=== PATIENT | male | born 1985 | race Caucasian/White ===

== ENCOUNTER → 2017-02-07 | Outpatient (CLI) | payer OTHER ==
[2017-02-07 09:17] LABS: Basophils % (A) 0 %; CH 30.7; CHCM 33.6; Eosinophils # (A) 0.2 k/uL (0-0.7); Eosinophils % (A) 2 %; HCT 50.3 % (39.0-53.0); HDW 2.69; HGB 16.9 gm/dL (13.0-17.5); Luc # (Auto) 0.24; Luc % (Auto) 3; Lymphocytes # (A) 2.4 k/uL (1.0-4.8); Lymphocytes % (A) 26 %; MCH 30.9 pg (25.0-35.0); MCHC 33.6 g/dL (31.0-37.0); MCV 91.7 fL (80.0-100.0); Mean Platelet Volume 7.2; Monocytes # (A) 0.6 k/uL (0-1.0); Monocytes % (A) 6 %; Neutrophils # (A) 5.8 k/uL (1.3-7.7); Neutrophils % (A) 63 %; RBC 5.48 m/uL (4.30-5.90); RDW 13.3 % (11.5-15.5); WBC 9.2 k/uL (3.8-10.6); WBC (Perox) 9.52
[2017-02-07 09:32] LABS: ALT 60 U/L (21-72); AST 29 U/L (17-59); Alkaline Phosphatase 99 U/L (38-126); Anion Gap 9 mmol/L; Blood Urea Nitrogen 13 mg/dL (9-20); Calcium 9.7 mg/dL (8.4-10.2); Carbon Dioxide 26 mmol/L (22-30); Chloride 108 mmol/L (98-107); Cholesterol 216 mg/dL (<200); Glucose 98 mg/dL (74-99); HDL Cholesterol 34 mg/dL (40-60); Non-African American GFR(MDRD) >60 (>60 ml/min/1.73 sqM); Potassium 4.7 mmol/L (3.5-5.1); Sodium 143 mmol/L (137-145); Total Bilirubin 0.7 mg/dL (0.2-1.3); Total Protein 7.5 g/dL (6.3-8.2); Triglycerides 196 mg/dL (<150)
== END | disposition home or self-care (01) ==
LOC: LABWHC1 08:45
PROVIDERS: ATTEND Family Medicine
DX: I10 Essential (primary) hypertension (principal)
CPT/HCPCS: 36415; 80053; 80061; 84443; 85025

== ENCOUNTER → 2017-04-03 | Outpatient (CLI) | payer OTHER ==
--- NOTE | 2017-04-10 20:15 | CONS ---
DATE OF SERVICE: 04/03/2017 This patient is a 32-year-old gentleman who has been evaluated in the sleep center for possible obstructive sleep apnea/hypopnea syndrome. HISTORY OF PRESENT ILLNESS/SLEEP-WAKE EVALUATION: Patient's usual sleep schedule on working days is from 10 p.m. until 3:30 a.m., on weekends from 10 p.m. to 7 or 7:30 a.m. No problem with falling asleep. He has a TV set in the bedroom. He usually sleeps on his side or back. He has snoring and witnessed episodes by his of stopped breathing during sleep. He wakes up from sleep up to 2 times with one episode of nocturia. In the morning he wakes up tired. [place] Sleepiness Scale is 9. Past medical history is positive for hypertension. PAST SURGICAL HISTORY: 1. Bilateral knee reconstruction for ALL. 2. Status post nasal surgery in 1998. 3. Status post nasal fracture. MEDICATIONS: Lotrel. REVIEW OF SYSTEMS: No fevers. No double vision. No recent chest pain. No shortness of breath. No abdominal pain. No bleeding episodes. No blood in urine. No seizure episodes. Tiredness and sleepiness during the day. Snoring. FAMILY HISTORY: Hypertension, sleep apnea, snoring, restless legs, diabetes. SOCIAL HISTORY: Positive for smoking one pack a day for 5 years. Alcohol consumption occasional. PHYSICAL EXAM: The patient is in no distress. He is a pleasant 32-year-old gentleman. VITAL SIGNS: Blood pressure 159/98, heart rate 96, respiratory rate 16, height 69, weight 250.2, BMI 47.3. Neck 18 inches in circumference. Temperature 98.1. Oxygen saturation on room air 96%. HEENT: PERRLA. EOMI. Evaluation of oropharynx showed tongue protrudes midline. Extremely low position of soft palate. Restriction of nasal breathing. NECK: Supple. No JVD. Thyroid is not palpable. LUNGS: Clear to percussion and to auscultation. Good air exchange. No wheezing or rhonchi. HEART: S1, S2 regular. No murmurs, gallops or rubs. ABDOMEN: Obese. EXTREMITIES: No clubbing or cyanosis. CONTROL ROOM OPERATOR: Awake, alert and oriented x3. Cranial nerves 2 through 7 are intact. There is no fasciculation or atrophy noted. No focal deficits observed. IMPRESSION: 1. Snoring, witnessed episodes of stopped breathing during sleep, extremely low position of soft palate, morbid obesity; obstructive sleep apnea/hypopnea syndrome. 2. Hypertension. 3. Obesity. BMI 47.3. 4. Status post bilateral knee reconstruction for ALL. 5. Status post nasal surgery in 1998. 6. Status post nasal fracture. 7. Restriction of nasal breathing. PLAN: 1. Polysomnography for evaluation of patients breathing during sleep. 2. CPAP/BiPAP titration if sleep study confirms obstructive sleep apnea/ hypopnea syndrome. 3. Preferable position during sleep on the side. 4. No driving if feeling any sleepiness. Patient is aware of civil and criminal liability for unsafe driving. 5. I will see this patient for follow-up visit to explain results of the testing and follow-up plan. Thank you very much for referring this patient for consultation. Sincerely, Wilbert Johnson. , PhD, FAASM. Diplomat of [place] [employer], Sleep Medicine Board by [place] [employer] [place] [employer] Research Consultant of [facility] [place] [facility]
== END | disposition home or self-care (01) ==
LOC: SLEEP 16:11
PROVIDERS: ATTEND Internal Medicine
DX: G47.33 Obstructive sleep apnea (adult) (pediatric) (principal); I10 Essential (primary) hypertension; E66.9 Obesity, unspecified; Z68.42 Body mass index [BMI] 45.0-49.9, adult; Z98.890 Other specified postprocedural states
CPT/HCPCS: 99211

== ENCOUNTER → 2018-09-11 | Outpatient (CLI) | payer OTHER ==
--- NOTE | 2018-09-11 11:19 | XR ---
EXAMINATION TYPE: XR knee complete bilateral DATE OF EXAM: 09/11/2018 CLINICAL HISTORY: Chronic bilateral knee pain TECHNIQUE: Three views of the bilateral knees were obtained. COMPARISON: None. FINDINGS: There is no acute fracture/dislocation evident in either knee. There is evidence of prior anterior cruciate ligament repair bilateral knees. Mild to moderate tricom partmental arthropathy is seen as small marginal osteophytes and both the left and right knees. No ch ondrocalcinosis is seen. There is a right medial proximal tibial metaphyseal osteochondroma contiguou s with the cortical surface this measures approximately 0.8 x 1.8 cm. Soft tissues are unremarkable. Small fabellae noted on the right. IMPRESSION: 1. There is no acute fracture or dislocation in either knee. 2. Medial right proximal tibial metaphyseal osteochondroma. MRI is recommended to evaluate the thickn ess of the cartilaginous cap and evaluation for osteosarcoma. 3. Mild to moderate tricompartmental arthropathy bilaterally.
== END | disposition home or self-care (01) ==
LOC: RADXRMAIN 08:32
PROVIDERS: ATTEND Family Medicine
DX: M17.0 Bilateral primary osteoarthritis of knee (principal); D16.21 Benign neoplasm of long bones of right lower limb

== ENCOUNTER → 2018-10-02 | Outpatient (CLI) | payer OTHER ==
--- NOTE | 2018-10-07 23:48 | MR ---
EXAMINATION TYPE: MR knee RT wo/w con DATE OF EXAM: 10/07/2018 COMPARISON: None HISTORY: Benign neoplasm of bone and articular cartilage TECHNIQUE: Multiplanar, multisequence images of the right knee is performed with 10 mL intravenous Ga davist gadolinium contrast. FINDINGS: There is no recognizable anterior cruciate ligament. The posterior cruciate ligament appears intact. There is metal artifact from previous reconstructive surgery in the distal femur and proximal tibia. There is mild to moderate knee joint effusion. There is patchy increased signal through a large area of the posterior horn of the lateral meniscus. There is horizontal increased signal anterior horn of the lateral meniscus. There is mild degenerative thinning of the medial meniscus without a complete tear. There is 2 cm are a of patchy increased signal at the base of the tibial spines consistent with bone bruise. There is 8 mm focus of decreased signal in the subchondral lateral femoral condyle consistent with degenerative early cyst formation. There is hypertrophic spurring of the medial and lateral femoral and tibial co ndyles. The collateral ligaments appear intact. The patella appears intact. The contrast images show no pathologic enhancement. There is mild subcutaneous edema anterior to the patella tendon. IMPRESSION: Complete tear anterior cruciate ligament. Complex tears of the anterior and posterior horn of the lat eral meniscus. Hypertrophic osteoarthritis. There is more severe lateral joint space narrowing. Large area of bone bruise at the base of the tibial spines. No fracture line seen. Moderate joint effusion. Mild degenerative thinning of the medial meniscus without a definite complet e tear.
== END | disposition home or self-care (01) ==
LOC: RADMRIMAIN 11:39
PROVIDERS: ATTEND Family Medicine
DX: S83.511A Sprain of anterior cruciate ligament of right knee, initial encounter (principal); S83.281A Other tear of lateral meniscus, current injury, right knee, initial encounter; M17.11 Unilateral primary osteoarthritis, right knee
CPT/HCPCS: 73723; A9585

== ENCOUNTER → 2018-10-09 | Outpatient (CLI) | payer OTHER ==
--- NOTE | 2018-10-09 15:20 | US ---
EXAMINATION TYPE: US venous doppler duplex LE LT DATE OF EXAM: 10/09/2018 11:54 AM COMPARISON: NONE CLINICAL HISTORY: M25.562 PAIN IN LT KNEE,M17.12 OSTEOARTHRITIS. SIDE PERFORMED: Left TECHNIQUE: The lower extremity deep venous system is examined utilizing real time linear array sonog angie with graded compression, doppler sonography and color-flow sonography. VESSELS IMAGED: External Iliac Vein (EIV) Common Femoral Vein Deep Femoral Vein Greater Saphenous Vein * Femoral Vein Popliteal Vein Small Saphenous Vein * Proximal Calf Veins (* superficial vessels) Left Leg: Negative for DVT GSV and PTV's also scanned per order. Also negative. Office notified immediately following. IMPRESSION: No evidence for DVT at this time.
== END ==
LOC: RADUSWWP 11:35
PROVIDERS: ATTEND Orthopaedic Surgery
DX: M79.662 Pain in left lower leg (principal)

== ENCOUNTER 2019-01-24 06:29 | Emergency (ER) | payer OTHER ==
[2019-01-24] MEDS ORDERED: KETOROLAC 30 MG/ML 1 ML VIAL IVP STA (06:48)
[2019-01-24] MEDS ORDERED: SODIUM CHLORIDE 0.9% 1,000 ML IV STA (06:48)
[2019-01-24] MEDS ORDERED: TAMSULOSIN 0.4 MG CAP.ER.24H PO STA (06:51)
--- NOTE | 2019-01-24 06:53 | ED ---
Abdominal Pain HPI - General Chief Complaint: Abdominal Pain Stated Complaint: Abdominal Pain Time Seen by Provider: 01/24/19 06:44 Source: patient, RN notes reviewed Mode of arrival: ambulatory Limitations: no limitations - History of Present Illness Initial Comments: This is a 33-year-old male with a prior history kidney stones who states he had the onset this morning of severe left-sided sharp flank pain it radiates down toward his groin. He denies any nausea vomiting dysuria hematuria he states he feels very similar to his previous kidney stones which she's had 2 episodes in the past. Denies any other complaints or modifying factors. MD Complaint: flank pain - Related Data Home Medications Medication Instructions Recorded Confirmed Armodafinil [Nuvigil] 50 mg PO QAM 01/24/19 01/24/19 amLODIPine BESYLATE/BENAZEPRIL 1 cap PO DAILY 01/24/19 01/24/19 [Lotrel 10-20 MG] Previous Rx's Medication Instructions Recorded Ketorolac [Toradol] 10 mg PO Q6HR #20 tab 01/24/19 Tamsulosin [Flomax] 0.4 mg PO DAILY #7 cap 01/24/19 Allergies Allergy/AdvReac Type Severity Reaction Status Date / Time No Known Allergies Allergy Verified 01/24/19 06:34 Review of Systems ROS Statement: Those systems with pertinent positive or pertinent negative responses have been documented in the HPI. ROS Other: All systems not noted in ROS Statement are negative. Past Medical History Past Medical History: Hypertension Additional Past Medical History / Comment(s): kidney stones History of Any Multi-Drug Resistant Organisms: None Reported Past Surgical History: Orthopedic Surgery Past Psychological History: No Psychological Hx Reported Smoking Status: Current every day smoker Past Alcohol Use History: Occasional Past Drug Use History: None Reported General Exam - General Exam Comments Initial Comments: This is a well-developed well-nourished awake alert oriented 3 male Limitations: no limitations General appearance: alert, anxious, in distress Head exam: Present: atraumatic, normocephalic, normal inspection Eye exam: Present: normal appearance, PERRL, EOMI. Absent: scleral icterus, conjunctival injection, periorbital swelling ENT exam: Present: normal exam, mucous membranes moist Neck exam: Present: normal inspection. Absent: tenderness, meningismus, lymphadenopathy Respiratory exam: Present: normal lung sounds bilaterally. Absent: respiratory distress, wheezes, rales, rhonchi, stridor Cardiovascular Exam: Present: regular rate, normal rhythm, normal heart sounds. Absent: systolic murmur, diastolic murmur, rubs, gallop, clicks GI/Abdominal exam: Present: soft, tenderness (Mild left flank and left upper quadrant tenderness palpation no guarding rebound masses or bruits), normal bowel sounds. Absent: distended, guarding, rebound, rigid Rectal exam: Present: deferred Extremities exam: Present: normal inspection, full ROM, normal capillary refill. Absent: tenderness, pedal edema, joint swelling, calf tenderness Back exam: Present: normal inspection, full ROM. Absent: tenderness, CVA tenderness (R), CVA tenderness (L) Neurological exam: Present: alert, oriented X3, CN II-XII intact Psychiatric exam: Present: normal affect, normal mood Skin exam: Present: warm, dry, intact, normal color. Absent: rash Course Vital Signs 01/24/19 06:30 Temperature 98.0 F Pulse Rate 94 Respiratory 20 Rate Blood Pressure 161/121 O2 Sat by Pulse 99 Oximetry Medical Decision Making - Medical Decision Making Reevaluation patient finds he is pain-free at this time he does desire to go home he'll be placed on Flomax and nonsteroidals he states this is very similar to his previous experiences as he has passed small kidney stones in the past. UA is pending at this time he does not want to wait for the results. - Lab Data Result diagrams: 01/24/19 06:44 01/24/19 06:44 Lab Results 01/24/19 01/24/19 Range/Units 06:44 06:44 WBC 12.6 H (3.8-10.6) k/uL RBC 5.02 (4.30-5.90) m/uL Hgb 15.4 (13.0-17.5) gm/dL Hct 45.2 (39.0-53.0) % MCV 90.1 (80.0-100.0) fL MCH 30.6 (25.0-35.0) pg MCHC 34.0 (31.0-37.0) g/dL RDW 13.1 (11.5-15.5) % Plt Count 243 (150-450) k/uL Neutrophils % 53 % Lymphocytes % 36 % Monocytes % 5 % Eosinophils % 4 % Basophils % 0 % Neutrophils # 6.6 (1.3-7.7) k/uL Lymphocytes # 4.6 (1.0-4.8) k/uL Monocytes # 0.6 (0-1.0) k/uL Eosinophils # 0.4 (0-0.7) k/uL Basophils # 0.1 (0-0.2) k/uL Sodium 140 (137-145) mmol/L Potassium 4.2 (3.5-5.1) mmol/L Chloride 106 (98-107) mmol/L Carbon Dioxide 26 (22-30) mmol/L Anion Gap 8 mmol/L BUN 17 (9-20) mg/dL Creatinine 0.97 (0.66-1.25) mg/dL Est GFR (CKD-EPI)AfAm >90 (>60 ml/min/1.73 sqM) Est GFR (CKD-EPI)NonAf >90 (>60 ml/min/1.73 sqM) Glucose 95 (74-99) mg/dL Calcium 9.7 (8.4-10.2) mg/dL Total Bilirubin 0.4 (0.2-1.3) mg/dL AST 22 (17-59) U/L ALT 46 (21-72) U/L Alkaline Phosphatase 104 (38-126) U/L Total Protein 7.1 (6.3-8.2) g/dL Albumin 4.4 (3.5-5.0) g/dL Amylase 33 (30-110) U/L Lipase 127 (23-300) U/L - Radiology Data Radiology results: report reviewed (I did review the imaging and report no acute findings.), image reviewed Disposition Clinical Impression: Renal colic on left side, Kidney stone on left side Disposition: HOME SELF-CARE Condition: Good Instructions (If sedation given, give patient instructions): Renal Colic (ED), Flank Pain (ED), Kidney Stones (ED) Prescriptions: Tamsulosin [Flomax] 0.4 mg PO DAILY #7 cap Ketorolac [Toradol] 10 mg PO Q6HR #20 tab Is patient prescribed a controlled substance at d/c from ED?: No Referrals: Erica Nazario MD [Primary Care Provider] - 1-2 days
[2019-01-24 06:59] LABS: Basophils # (A) 0.1 k/uL (0-0.2); Basophils % (A) 0 %; Eosinophils # (A) 0.4 k/uL (0-0.7); Eosinophils % (A) 4 %; HCT 45.2 % (39.0-53.0); HGB 15.4 gm/dL (13.0-17.5); Lymphocytes # (A) 4.6 k/uL (1.0-4.8); Lymphocytes % (A) 36 %; MCH 30.6 pg (25.0-35.0); MCV 90.1 fL (80.0-100.0); Mean Platelet Volume 7.3; Monocytes # (A) 0.6 k/uL (0-1.0); Monocytes % (A) 5 %; Neutrophils # (A) 6.6 k/uL (1.3-7.7); Neutrophils % (A) 53 %; Platelet Count 243 k/uL (150-450); RBC 5.02 m/uL (4.30-5.90); RDW 13.1 % (11.5-15.5); WBC 12.6 k/uL (3.8-10.6)
[2019-01-24 07:08] LABS: ALT 46 U/L (21-72); AST 22 U/L (17-59); Albumin 4.4 g/dL (3.5-5.0); Alkaline Phosphatase 104 U/L (38-126); Amylase 33 U/L (30-110); Anion Gap 8 mmol/L; Blood Urea Nitrogen 17 mg/dL (9-20); Calcium 9.7 mg/dL (8.4-10.2); Carbon Dioxide 26 mmol/L (22-30); Chloride 106 mmol/L (98-107); Glucose 95 mg/dL (74-99); Lipase 127 U/L (23-300); Potassium 4.2 mmol/L (3.5-5.1); Sodium 140 mmol/L (137-145); Total Bilirubin 0.4 mg/dL (0.2-1.3); Total Protein 7.1 g/dL (6.3-8.2)
--- NOTE | 2019-01-24 07:10 | XR ---
EXAMINATION TYPE: XR KUB DATE OF EXAM: 01/24/2019 COMPARISON: NONE HISTORY: Pain TECHNIQUE: Single supine KUB image of the abdomen is obtained FINDINGS: Small bowel demonstrates no evidence for dilatation or air fluid levels. Gas and fecal material is seen in non-distended colon. No convincing evidence for pneumoperitoneum. No unusual calcifications. The lung bases are clear. The osseous structures are intact. IMPRESSION: 1. Overall nonobstructive bowel gas pattern.
[2019-01-24 08:13] VITALS: BP 145/106; PULSE 86; RESP 18; TEMP 97.2
[2019-01-24 08:37] LABS: Appearance,Urine Clear (Clear); Bilirubin,Urine Negative (Negative); Blood,Urine Small (Negative); Color,Urine Colorless; Glucose,Urine (UA) Negative (Negative); Ketones,Urine Negative (Negative); Leukocyte Esterase,Urine Negative (Negative); Mucus,Urine Rare /hpf; Nitrite,Urine Negative (Negative); Protein,Urine Negative (Negative); RBC,Urine <1 /hpf (0-5); Specific Gravity,Urine 1.005 (1.001-1.035); Urobilinogen,Urine <2.0 mg/dL (<2.0)
== END 2019-01-24 08:13 | disposition home or self-care (01) ==
LOC: EC 06:29
DX: N20.0 Calculus of kidney (principal); I10 Essential (primary) hypertension; F17.200 Nicotine dependence, unspecified, uncomplicated; Z79.899 Other long term (current) drug therapy
CPT/HCPCS: 36415; 80053; 82150; 83690; 85025; 81001; 74018; 99284; 96374; 96361; J1885

== ENCOUNTER 2019-09-28 01:18 | Inpatient (IN) | payer OTHER ==
[2019-09-28] MEDS ORDERED: SODIUM CHLORIDE 0.9% 500 ML 500 ML IV STA (01:41)
[2019-09-28] MEDS ORDERED: MORPHINE SULFATE 4 MG/ML SYRINGE IV STA (01:41)
[2019-09-28] MEDS ORDERED: SODIUM CHLORIDE 0.9% 1,000 ML IV STA ×2 (01:41)
--- NOTE | 2019-09-28 02:07 | ED ---
Abdominal Pain HPI - General Source: patient Mode of arrival: ambulatory Limitations: no limitations <Dee Stark - Last Filed: 09/28/19 04:13> <Hayden Rooney - Last Filed: 09/28/19 08:52> - General Chief Complaint: Abdominal Pain Stated Complaint: abd pain Time Seen by Provider: 09/28/19 01:34 - History of Present Illness Initial Comments: 33-year-old male presenting today for chief complaint of mid lower abdominal abdominal pain times one day. Patient states the past day has had sharp mid abdominal pain. He states it feels slightly different from his typical kidney stone pain which she has frequently. Patient states that he's also had chills. Patient denies any melena hematochezia, emesis vomiting nausea flank pain. Patient denies hematuria was states he has dysuria. Upon arrival patient is f ebrile heart rate elevated. However is ambulatory appearing nontoxic (Dee Stark) - Related Data Home Medications Medication Instructions Recorded Confirmed Armodafinil [Nuvigil] 50 mg PO QAM 01/24/19 09/28/19 amLODIPine BESYLATE/BENAZEPRIL 1 cap PO DAILY 01/24/19 09/28/19 [Lotrel 10-20 MG] Celecoxib [CeleBREX] 200 mg PO DAILY 09/28/19 09/28/19 Multivitamins, Thera [Multivitamin 1 tab PO DAILY 09/28/19 09/28/19 (formulary)] Allergies Allergy/AdvReac Type Severity Reaction Status Date / Time No Known Allergies Allergy Verified 09/28/19 08:18 Review of Systems ROS Other: All systems not noted in ROS Statement are negative. <Dee Stakr - Last Filed: 09/28/19 04:13> ROS Other: All systems not noted in ROS Statement are negative. <Hayden Rooney - Last Filed: 09/28/19 08:52> ROS Statement: Those systems with pertinent positive or pertinent negative responses have been documented in the HPI. Past Medical History Past Medical History: Hypertension, Sleep Apnea/CPAP/BIPAP Additional Past Medical History / Comment(s): kidney stones, left kidney is undersized, History of Any Multi-Drug Resistant Organisms: None Reported Past Surgical History: Orthopedic Surgery Additional Past Surgical History / Comment(s): bilat knees (ACL reconstruction), nasal surgery, Past Psychological History: No Psychological Hx Reported Smoking Status: Current every day smoker Past Alcohol Use History: Rare Past Drug Use History: None Reported <Dee Stark - Last Filed: 09/28/19 04:13> General Exam Limitations: no limitations <Dee Stark - Last Filed: 09/28/19 04:13> - General Exam Comments Initial Comments: General: The patient is awake and alert, appears uncomfortable. Eye: +3 mm pupils are equal, round and reactive to light, extra-ocular movements are intact. No nystagmus. There is normal conjunctiva bilaterally. No signs of icterus. Ears, nose, mouth and throat: There are moist mucous membranes and no oral lesions. Neck: The neck is supple, there is no tenderness or JVD. Cardiovascular: There is a regular rate and rhythm. No murmur, rub or gallop is appreciated. Respiratory: Lungs are clear to auscultation, respirations are non-labored, breath sounds are equal. No wheezes, stridor, rales, or rhonchi. Gastrointestinal: Soft, non-distended, midline lower abdomen tender to palpation, remaining abdomen is nontender and without masses or organomegaly noted. There is no rebound or guarding present. No CVA tenderness. Musculoskeletal: Normal ROM, no tenderness. Strength 5/5. Sensation intact. Radial pulses equal bilaterally 2+. Neurological: A&O x 3. CN II-XII intact grossly, There are no obvious motor or sensory deficits. Coordination appears grossly intact. Speech is normal. Skin: Skin is warm and dry and no rashes or lesions are noted. Psychiatric: Cooperative, appropriate mood & affect, normal judgment. (Dee Stark) Course Vital Signs 09/28/19 09/28/19 09/28/19 01:29 02:53 04:00 Temperature 101.2 F H 101.8 F H Pulse Rate 129 H 117 H 114 H Pulse Rate [ 110 H Pulse Oximetery ] Respiratory 18 19 18 Rate Blood Pressure 138/90 145/93 131/69 O2 Sat by Pulse 99 96 96 Oximetry Medical Decision Making - Lab Data Result diagrams: 09/28/19 02:02 09/28/19 02:02 <Dee Stark - Last Filed: 09/28/19 04:13> - Lab Data Result diagrams: 09/28/19 02:02 09/28/19 02:02 <Hayden Rooney - Last Filed: 09/28/19 08:52> - Medical Decision Making 34-year-old male presenting today for chief complaint of abdominal pain. Patient has findings on CT consistent with diverticulitis complex with phelgmon as well as abscess. Patient has significant leukocytosis febrile tachycardia. Concern for sepsis. Patient given aggressive IV hydration as well as antibiotic treatment. Patient given IV pain medications and will be admitted with surgical consultation. Dr. Jamil was consulted. Patient agreeable to admission. (Dee Stark) I saw this patient in conjunction with the physician business banking sales assistant. I performed independent history and physical exam. Agree with case management. (Hayden Rooney) - Lab Data Lab Results 09/28/19 09/28/19 09/28/19 Range/Units 01:36 02:02 02:02 WBC 21.1 H (3.8-10.6) k/uL RBC 4.96 (4.30-5.90) m/uL Hgb 14.9 (13.0-17.5) gm/dL Hct 44.0 (39.0-53.0) % MCV 88.6 (80.0-100.0) fL MCH 29.9 (25.0-35.0) pg MCHC 33.8 (31.0-37.0) g/dL RDW 12.6 (11.5-15.5) % Plt Count 178 (150-450) k/uL Neutrophils % 89 % Lymphocytes % 5 % Monocytes % 4 % Eosinophils % 1 % Basophils % 1 % Neutrophils # 18.7 H (1.3-7.7) k/uL Lymphocytes # 0.9 L (1.0-4.8) k/uL Monocytes # 0.8 (0-1.0) k/uL Eosinophils # 0.3 (0-0.7) k/uL Basophils # 0.2 (0-0.2) k/uL Sodium 135 L (137-145) mmol/L Potassium 4.0 (3.5-5.1) mmol/L Chloride 104 (98-107) mmol/L Carbon Dioxide 22 (22-30) mmol/L Anion Gap 9 mmol/L BUN 17 (9-20) mg/dL Creatinine 1.10 (0.66-1.25) mg/dL Est GFR (CKD-EPI)AfAm >90 (>60 ml/min/1.73 sqM) Est GFR (CKD-EPI)NonAf 87 (>60 ml/min/1.73 sqM) Glucose 133 H (74-99) mg/dL Plasma Lactic Acid Kobe (0.7-2.0) mmol/L Calcium 9.3 (8.4-10.2) mg/dL Total Bilirubin 0.7 (0.2-1.3) mg/dL AST 20 (17-59) U/L ALT 25 (4-49) U/L Alkaline Phosphatase 123 (38-126) U/L Total Protein 6.5 (6.3-8.2) g/dL Albumin 4.0 (3.5-5.0) g/dL Urine Color Yellow Urine Appearance Clear (Clear) Urine pH 6.0 (5.0-8.0) Ur Specific [place] 1.029 (1.001-1.035) Urine Protein Trace H (Negative) Urine Glucose (UA) Negative (Negative) Urine Ketones Negative (Negative) Urine Blood Negative (Negative) Urine Nitrite Negative (Negative) Urine Bilirubin Negative (Negative) Urine Urobilinogen 2.0 (<2.0) mg/dL Ur Leukocyte Esterase Negative (Negative) 09/28/19 Range/Units 02:28 WBC (3.8-10.6) k/uL RBC (4.30-5.90) m/uL Hgb (13.0-17.5) gm/dL Hct (39.0-53.0) % MCV (80.0-100.0) fL MCH (25.0-35.0) pg MCHC (31.0-37.0) g/dL RDW (11.5-15.5) % Plt Count (150-450) k/uL Neutrophils % % Lymphocytes % % Monocytes % % Eosinophils % % Basophils % % Neutrophils # (1.3-7.7) k/uL Lymphocytes # (1.0-4.8) k/uL Monocytes # (0-1.0) k/uL Eosinophils # (0-0.7) k/uL Basophils # (0-0.2) k/uL Sodium (137-145) mmol/L Potassium (3.5-5.1) mmol/L Chloride (98-107) mmol/L Carbon Dioxide (22-30) mmol/L Anion Gap mmol/L BUN (9-20) mg/dL Creatinine (0.66-1.25) mg/dL Est GFR (CKD-EPI)AfAm (>60 ml/min/1.73 sqM) Est GFR (CKD-EPI)NonAf (>60 ml/min/1.73 sqM) Glucose (74-99) mg/dL Plasma Lactic Acid [place] 1.4 (0.7-2.0) mmol/L Calcium (8.4-10.2) mg/dL Total Bilirubin (0.2-1.3) mg/dL AST (17-59) U/L ALT (4-49) U/L Alkaline Phosphatase (38-126) U/L Total Protein (6.3-8.2) g/dL Albumin (3.5-5.0) g/dL Urine Color Urine Appearance (Clear) Urine pH (5.0-8.0) Ur Specific [place] (1.001-1.035) Urine Protein (Negative) Urine Glucose (UA) (Negative) Urine Ketones (Negative) Urine Blood (Negative) Urine Nitrite (Negative) Urine Bilirubin (Negative) Urine Urobilinogen (<2.0) mg/dL Ur Leukocyte Esterase (Negative) Disposition Is patient prescribed a controlled substance at d/c from ED?: No Time of Disposition: 02:45 Decision to Admit Reason: Admit from EC Decision Date: 09/28/19 Decision Time: 02:45 <Dee Stark - Last Filed: 09/28/19 04:13> <Hayden Rooney - Last Filed: 09/28/19 08:52> Clinical Impression: Diverticulitis of intestine with abscess, Fever, SIRS (systemic inflammatory response syndrome) Disposition: [facility] Condition: Serious
[2019-09-28 02:15] LABS: Basophils # (A) 0.2 k/uL (0-0.2); Basophils % (A) 1 %; Eosinophils # (A) 0.3 k/uL (0-0.7); Eosinophils % (A) 1 %; HGB 14.9 gm/dL (13.0-17.5); Lymphocytes # (A) 0.9 k/uL (1.0-4.8); Lymphocytes % (A) 5 %; MCH 29.9 pg (25.0-35.0); MCHC 33.8 g/dL (31.0-37.0); MCV 88.6 fL (80.0-100.0); Mean Platelet Volume 8.1; Monocytes # (A) 0.8 k/uL (0-1.0); Monocytes % (A) 4 %; Neutrophils # (A) 18.7 k/uL (1.3-7.7); Neutrophils % (A) 89 %; Platelet Count 178 k/uL (150-450); RBC 4.96 m/uL (4.30-5.90); RDW 12.6 % (11.5-15.5); WBC 21.1 k/uL (3.8-10.6)
[2019-09-28 02:17] LABS: Appearance,Urine Clear (Clear); Bilirubin,Urine Negative (Negative); Blood,Urine Negative (Negative); Color,Urine Yellow; Glucose,Urine (UA) Negative (Negative); Ketones,Urine Negative (Negative); Leukocyte Esterase,Urine Negative (Negative); Nitrite,Urine Negative (Negative); Protein,Urine Trace (Negative); Specific Gravity,Urine 1.029 (1.001-1.035)
[2019-09-28 02:24] LABS: ALT 25 U/L (4-49); AST 20 U/L (17-59); African American GFR (CKD) >90 (>60 ml/min/1.73 sqM); Alkaline Phosphatase 123 U/L (38-126); Anion Gap 9 mmol/L; Blood Urea Nitrogen 17 mg/dL (9-20); Calcium 9.3 mg/dL (8.4-10.2); Carbon Dioxide 22 mmol/L (22-30); Chloride 104 mmol/L (98-107); Glucose 133 mg/dL (74-99); Non-African American GFR(CKD) 87 (>60 ml/min/1.73 sqM); Sodium 135 mmol/L (137-145); Total Bilirubin 0.7 mg/dL (0.2-1.3); Total Protein 6.5 g/dL (6.3-8.2)
--- NOTE | 2019-09-28 02:33 | CT ---
EXAMINATION TYPE: CT abdomen pelvis w con DATE OF EXAM: 09/28/2019 COMPARISON: 09/18/2013 HISTORY: Mid to lower abd pain CT DLP: 1497.50 mGycm Automated exposure control for dose reduction was used. CONTRAST: Performed with IV Contrast, patient injected with 100 mL of Isovue 300. Lung bases are clear. There is no pleural effusion. Heart size is normal. Liver spleen pancreas gallbladder appear normal. Bile ducts are not dilated. Stomach appears normal. There is no adrenal mass. Kidneys show satisfactory contrast opacification. There is no hydronephrosi s. There is 8 mm calculus upper pole left kidney. There is no evidence of a renal mass. There is no r etroperitoneal adenopathy. Bladder distends smoothly. There is moderate fat stranding around the proximal sigmoid colon. There are a few air bubbles in the pericolic fat anterior to the proximal sigmoid colon. There is wall thickening of sigmoid colon. There is no evidence of ascites. Appendix appears normal. There is no evidence of a bowel obstruction. There is no free air. Lumbar vertebra have normal alignm ent. Posterior elements are intact. Bony pelvis is intact. IMPRESSION: Nonobstructing left renal calculus. Normal appendix. There is clearing of small calculus right kidney compared to old exam. There is proximal sigmoid diverticulitis with phlegmon and peridiverticular abscess. Diverticulitis i s a change compared to old exam.
[2019-09-28] MEDS ORDERED: PIPERACILLIN-TAZOBACTAM 3.375 GM in SODIUM CHLORIDE 0.9% 100 ML IVPB STA (02:36)
[2019-09-28] MEDS ORDERED: PIPERACILLIN-TAZOBACTAM 3.375 GM in SODIUM CHLORIDE 0.9% 100 ML IVPB ONE (02:38)
[2019-09-28] MEDS ORDERED: HYDROmorphone 0.5 MG/0.5 ML SYRINGE IVP STA ×2 (02:43→03:35)
[2019-09-28] MEDS ORDERED: SODIUM CHLORIDE 0.9% 500 ML 500 ML IV ONE (02:45)
[2019-09-28] MEDS ORDERED: NALOXONE 0.4 MG/ML 1 ML VIAL IV PRN (02:45)
[2019-09-28] MEDS: ACETAMINOPHEN IV (For NPO) 1,000 MG in EMPTY BAG 1 BAG IVPB SCH ×3 (05:08→17:30)
[2019-09-28] MEDS: HYDROmorphone 0.5 MG/0.5 ML SYRINGE IVP PRN ×2 (08:17→20:08)
[2019-09-28] MEDS: HEPARIN SODIUM,PORCINE 5,000 UNIT/ML 1 ML VIAL SQ SCH ×2 (09:12→20:08)
[2019-09-28] MEDS: ARMODAFINIL 50 MG PO SCH (09:12)
[2019-09-28] MEDS: amLODIPine 10 MG TAB PO SCH (09:13)
[2019-09-28] MEDS: FAMOTIDINE 20 MG/2 ML VIAL IV SCH ×2 (09:13→20:07)
[2019-09-28] MEDS: LISINOPRIL 20 MG TAB PO SCH (09:13)
[2019-09-28] MEDS: SODIUM CHLORIDE 0.9% 1,000 ML IV SCH ×2 (09:16→20:09)
--- NOTE | 2019-09-28 09:22 | P.HPIM ---
History of Present Illness this is a pleasant 54 years old male with past medical history of hypertension, sleep apnea on CPAP/BiPAP, kidney stone. Presents with abdominal pain of 2 days' durationof left lower quadrant and more towards the center, nonradiating, was severe about 9-10/10 in severity, come vertically improved with pain medication. Associated with fever of 101 which made the patient more worried so he decided to come to the hospital. However patient denies nausea vomiting, no change in bowel habits. No chest pain or dyspnea. No dizziness.no such episodes in the past On admission patient has fever of 101.8. Melissa Cabrales looks stable however his tachycardic of 110-113.labs showed leukocytosis of 20 1.1K. Sodium is 135, creatinine is normal at 1.1, liver enzymes not elevated. Chest x-ray: No acute process as per radiologist.urinalysis is negative. CT of the abdomen and pelvis with contrast: 8 mm left kidney stone, sigmoid colitis.an event. Diverticular abscess on admission patient was given Zosyn was started on Rocephin. He was given IV hydration and pain management. patient was placed nothing by mouth he smokes cigarettes, patient is counseled and he does not want nicotine patch. No alcohol or illicit tracts Review of Systems CONSTITUTIONAL: No fever, no malaise, no fatigue. HEENT: No recent visual problems or hearing problems. Denied any sore throat. CARDIOVASCULAR: No orthopnea, PND, no palpitations, no syncope. PULMONARY: No shortness of breath, no cough, no hemoptysis. GASTROINTESTINAL: No diarrhea, no nausea, no vomiting. Normoactive bowel sounds. NEUROLOGICAL: No headaches, no weakness, no numbness. HEMATOLOGICAL: Denies any bleeding or petechiae. GENITOURINARY: Denies any burning micturition, frequency, or urgency. MUSCULOSKELETAL/RHEUMATOLOGICAL: Denies any joint pain, swelling, or any muscle pain. ENDOCRINE: Denies any polyuria or polydipsia. Past Medical History Past Medical History: Hypertension, Sleep Apnea/CPAP/BIPAP Additional Past Medical History / Comment(s): kidney stones, left kidney is undersized, History of Any Multi-Drug Resistant Organisms: None Reported Past Surgical History: Orthopedic Surgery Additional Past Surgical History / Comment(s): bilat knees (ACL reconstruction), nasal surgery, Past Psychological History: No Psychological Hx Reported Smoking Status: Current every day smoker Past Alcohol Use History: Rare Past Drug Use History: None Reported Medications and Allergies Home Medications Medication Instructions Recorded Confirmed Type Armodafinil [Nuvigil] 50 mg PO QAM 01/24/19 09/28/19 History amLODIPine BESYLATE/BENAZEPRIL 1 cap PO DAILY 01/24/19 09/28/19 History [Lotrel 10-20 MG] Celecoxib [CeleBREX] 200 mg PO DAILY 09/28/19 09/28/19 History Multivitamins, Thera [Multivitamin 1 tab PO DAILY 09/28/19 09/28/19 History (formulary)] Allergies Allergy/AdvReac Type Severity Reaction Status Date / Time No Known Allergies Allergy Verified 09/28/19 08:18 Physical Exam Vitals: Vital Signs Temp Pulse Pulse Resp BP BP Pulse Ox 09/28/19 08:21 99.1 F 102 H 16 123/76 95 09/28/19 04:41 100.1 F H 113 H 18 118/74 99 09/28/19 04:00 114 H 110 H 18 131/69 96 09/28/19 02:53 101.8 F H 117 H 19 145/93 96 09/28/19 01:29 101.2 F H 129 H 18 138/90 99 Intake and Output 09/27/19 09/28/19 09/28/19 22:59 06:59 14:59 Intake Total 601 Balance 601 Intake: Intake, IV Titration 601 Amount ACETAMINOPHEN IV (For NPO 1 ) 1,000 mg In Empty Bag 1 bag @ 400 mls/hr IVPB Q6HR [facility] Rx#:[id number] Piperacillin-Tazobactam 3 100 .375 gm In Sodium Chloride 0.9% 100 ml @ 200 mls/hr IVPB ONCE ONE Rx#:[id number] Sodium Chloride 0.9% 1, 500 000 ml @ 150 mls/hr IV . Q6H40M [facility] Rx#:[id number] Other: Voiding Method Toilet # Voids 1 Weight 108.862 kg GENERAL: The patient is alert and oriented x3, not in any acute distress. Well d eveloped, well nourished. HEENT: Pupils are round and equally reacting to light. EOMI. No scleral icterus. No conjunctival pallor. Normocephalic, atraumatic. No pharyngeal erythema. No thyromegaly. CARDIOVASCULAR: S1 and S2 present. No murmurs, rubs, or gallops. PULMONARY: Chest is clear to auscultation, no wheezing or crackles. -ABDOMEN: Soft, LLQ but more towards the center tenderness with no rebound tenderness, nondistended, normoactive bowel sounds. No palpable organomegaly. MUSCULOSKELETAL: No joint swelling or deformity. EXTREMITIES: No cyanosis, clubbing, or pedal edema. NEUROLOGICAL: Gross neurological examination did not reveal any focal deficits. SKIN: No rashes. No petechiae Results CBC & Chem 7: 09/28/19 02:02 09/28/19 02:02 Labs: Abnormal Lab Results - Last 24 Hours (Table) 09/28/19 09/28/19 09/28/19 Range/Units 01:36 02:02 02:02 WBC 21.1 H (3.8-10.6) k/uL Neutrophils # 18.7 H (1.3-7.7) k/uL Lymphocytes # 0.9 L (1.0-4.8) k/uL Sodium 135 L (137-145) mmol/L Glucose 133 H (74-99) mg/dL Urine Protein Trace H (Negative) Thrombosis Risk Factor Assmnt - Choose All That Apply Any of the Below Risk Factors Present?: No Other Risk Factors: No Thrombosis Risk Factor Assessment Level: Very Low Risk Assessment and Plan Assessment: acute diverticulitis Peridiverticular abscess systemic inflammatory response syndrome was with fever, tachycardia and leukocytosis Sepsis secondary to above hypertension Sleep apnea on CPAP/BiPAP 8 mm left kidney stones nicotine dependence Plan: this is a pleasant 54 years old male who presents with fever and diverticulitis. Continue with antibiotics Zosyn. Consult GI on surgical services, continue with bowel rest and advanced diet when well tolerated, continue with IV fluids.pain management Labs and medication were reviewed.. Continue same treatment. Continue with symptomatic treatment. Resume home medication. Monitor lytes and vitals. DVT and GI prophylaxis. Further recommendations of the clinical course of the patient DVT prophylaxis: Subcutaneous heparin GI Prophylaxis: Pepcid Prognosis is guarded
[2019-09-28] MEDS: KETOROLAC 30 MG/ML 1 ML VIAL IVP PRN ×2 (10:14→20:08)
--- NOTE | 2019-09-28 11:13 | P.GSCN ---
History of Present Illness Consult date: 09/28/19 Reason for Consult: Diverticulitis Requesting physician: Freeman E Elzbeita History of present illness: CHIEF COMPLAINT: Abdominal pain HISTORY OF PRESENT ILLNESS: 34-year-old male who presented to emergency room with a chief complaint of abdominal pain. Patient reports he has been having lower quadrant abdominal pain for approximately 2 days. He denies nausea or vomiting. He denies diarrhea or constipation. He does report a fever at home. Patient denies previous history of colonoscopy. Denies history of diverticulitis. PAST MEDICAL HISTORY: See list. PAST SURGICAL HISTORY: See list. SOCIAL HISTORY: No illicit drug use. REVIEW OF SYSTEMS: CONSTITUTIONAL: Reports fever at home. HEENT: Denies blurred vision, vision changes, or eye pain. Denies hemoptysis CARDIOVASCULAR: Denies chest pain or pressure. RESPIRATORY: No shortness of breath. GASTROINTESTINAL: Refer to HPI for pertinent findings HEMATOLOGIC: Denies bleeding disorders. GENITOURINARY: Denies any blood in urine. SKIN: Denies pruitis. Denies rash. PHYSICAL EXAM: VITAL SIGNS: Reviewed. GENERAL: Well-developed in no acute distress. HEENT: No sclera icterus. Extraocular movements grossly intact. Moist buccal mucosa. Head is atraumatic, normocephalic. ABDOMEN: Soft. Nondistended. Tenderness upon palpation of lower abdomen, specifically left lower quadrant. No peritoneal signs. NEUROLOGIC: Alert and oriented. Cranial nerves II through XII grossly intact. LABORATORY DATA: WBC 21.1. Hemoglobin 14.9. Platelet count 178. Lactic acid 1.4. IMAGING: CT abdomen pelvis: Proximal sigmoid diverticulitis with phlegmon and peridiverticular abscess. ASSESSMENT: 1. Abdominal pain 2. Acute sigmoid diverticulitis with phlegmon and abscess formation PLAN: -Continue nothing by mouth -Monitor WBC. Repeat CBC in a.m. -Continue antibiotics -No immediate surgical intervention recommended at this time. Continue with conservative management -Patient will require colonoscopy outpatient in 4-[address] Jamil Nurse practitioner note has been reviewed by physician. Signing provider agrees with the documented findings, assessment, and plan of care. Past Medical History Past Medical History: Hypertension, Sleep Apnea/CPAP/BIPAP Additional Past Medical History / Comment(s): kidney stones, left kidney is undersized, History of Any Multi-Drug Resistant Organisms: None Reported Past Surgical History: Orthopedic Surgery Additional Past Surgical History / Comment(s): bilat knees (ACL reconstruction), nasal surgery, Past Psychological History: No Psychological Hx Reported Smoking Status: Current every day smoker Past Alcohol Use History: Rare Past Drug Use History: None Reported Medications and Allergies Home Medications Medication Instructions Recorded Confirmed Type Armodafinil [Nuvigil] 50 mg PO QAM 01/24/19 09/28/19 History amLODIPine BESYLATE/BENAZEPRIL 1 cap PO DAILY 01/24/19 09/28/19 History [Lotrel 10-20 MG] Celecoxib [CeleBREX] 200 mg PO DAILY 09/28/19 09/28/19 History Multivitamins, Thera [Multivitamin 1 tab PO DAILY 09/28/19 09/28/19 History (formulary)] Allergies Allergy/AdvReac Type Severity Reaction Status Date / Time No Known Allergies Allergy Verified 09/28/19 08:18 Surgical - Exam Vital Signs Temp Pulse Resp BP Pulse Ox 101.2 F H 129 H 18 138/90 99 09/28/19 01:29 09/28/19 01:29 09/28/19 01:29 09/28/19 01:29 09/28/19 01:29 Results - Labs 09/28/19 02:02 09/28/19 02:02 Abnormal Lab Results - Last 24 Hours (Table) 09/28/19 09/28/19 09/28/19 Range/Units 01:36 02:02 02:02 WBC 21.1 H (3.8-10.6) k/uL Neutrophils # 18.7 H (1.3-7.7) k/uL Lymphocytes # 0.9 L (1.0-4.8) k/uL Sodium 135 L (137-145) mmol/L Glucose 133 H (74-99) mg/dL Urine Protein Trace H (Negative) Diabetes panel 09/28/19 Range/Units 02:02 Sodium 135 L (137-145) mmol/L Potassium 4.0 (3.5-5.1) mmol/L Chloride 104 (98-107) mmol/L Carbon Dioxide 22 (22-30) mmol/L BUN 17 (9-20) mg/dL Creatinine 1.10 (0.66-1.25) mg/dL Glucose 133 H (74-99) mg/dL Calcium 9.3 (8.4-10.2) mg/dL AST 20 (17-59) U/L ALT 25 (4-49) U/L Alkaline Phosphatase 123 (38-126) U/L Total Protein 6.5 (6.3-8.2) g/dL Albumin 4.0 (3.5-5.0) g/dL Calcium panel 09/28/19 Range/Units 02:02 Calcium 9.3 (8.4-10.2) mg/dL Albumin 4.0 (3.5-5.0) g/dL Pituitary panel 09/28/19 Range/Units 02:02 Sodium 135 L (137-145) mmol/L Potassium 4.0 (3.5-5.1) mmol/L Chloride 104 (98-107) mmol/L Carbon Dioxide 22 (22-30) mmol/L BUN 17 (9-20) mg/dL Creatinine 1.10 (0.66-1.25) mg/dL Glucose 133 H (74-99) mg/dL Calcium 9.3 (8.4-10.2) mg/dL Adrenal panel 09/28/19 Range/Units 02:02 Sodium 135 L (137-145) mmol/L Potassium 4.0 (3.5-5.1) mmol/L Chloride 104 (98-107) mmol/L Carbon Dioxide 22 (22-30) mmol/L BUN 17 (9-20) mg/dL Creatinine 1.10 (0.66-1.25) mg/dL Glucose 133 H (74-99) mg/dL Calcium 9.3 (8.4-10.2) mg/dL Total Bilirubin 0.7 (0.2-1.3) mg/dL AST 20 (17-59) U/L ALT 25 (4-49) U/L Alkaline Phosphatase 123 (38-126) U/L Total Protein 6.5 (6.3-8.2) g/dL Albumin 4.0 (3.5-5.0) g/dL
--- NOTE | 2019-09-28 11:46 | CONS ---
CONSULTATION DATE OF SERVICE: 09/28/2019 REASON FOR CONSULTATION: Acute sigmoid diverticulitis. HISTORY OF PRESENT ILLNESS: The patient is a 34-year-old pleasant white male admitted to the hospital when he presented with lower abdominal pain for the last 3 to 4 days duration. The pain was progressively getting worse and last night he came home from work and had a fever of 103. He never had these symptoms in the past. He denies any nausea, vomiting. Reports no significant change in his bowel habits. When he came to the emergency room, he had a fever of 101.8. He did have a CT of the abdomen and pelvis done that showed diverticulitis with a small diverticular abscess. The patient was started on IV Zosyn. He still feels the same today. He never had these symptoms in past. PAST MEDICAL HISTORY: Significant for hypertension. MEDICATIONS AT HOME: Nuvigil, Lotrel, Celebrex, multivitamin. ALLERGIES: None. SOCIAL HISTORY: Chronic smoker. No alcohol use. PAST SURGICAL HISTORY: Bilateral ACL reconstruction. REVIEW OF SYSTEMS: CARDIOPULMONARY: No chest pain, shortness of breath. GENITOURINARY: No dysuria or hematuria. MUSCULOSKELETAL: Unremarkable. SKIN: Unremarkable. ENDOCRINE: Unremarkable. PSYCHIATRIC: Unremarkable. NEUROLOGY: Unremarkable. ENT/VISION: Unremarkable. CONSTITUTIONAL: No recent weight loss. No fever, chills, night sweats. PHYSICAL EXAMINATION: On physical examination, he appears comfortable, in no apparent distress. Vital signs are stable. T-max is a 102.8, temperature today is 99.1, and the blood pressure 123/76. HEENT examination unremarkable. Conjunctivae pink. Sclerae anicteric. Oral cavity no lesions. NECK: No JVD or lymph enlargement. CHEST: Clear to auscultation. HEART: Regular rate and rhythm. ABDOMEN: Soft. Bowel sounds are positive. Mild tenderness in the left lower quadrant and suprapubic area. The rest of the abdomen is benign. EXTREMITIES: No pedal edema. SKIN: No rashes. NEURO: Alert and oriented x3. No focal deficits. LABS: Labs done today WBC 21.1, hemoglobin 14.5, platelets are normal. Basic metabolic panel is within normal limits. CT of the abdomen showed acute sigmoid diverticulitis with pericolonic small abscess. IMPRESSION: Acute sigmoid diverticulitis with a small pericolonic microperforation with abscess. Presently on broad-spectrum antibiotics and remains n.p.o. Surgery following the patient closely. RECOMMENDATIONS: 1. Continue with antibiotics. 2. Keep him n.p.o. 3. Repeat labs in the morning. 4. We will follow with you closely. Thank you for this consultation. ROGER / CALOS: [id number] /
[2019-09-28] MEDS ORDERED: KETOROLAC 30 MG/ML 1 ML VIAL IVP SCH (12:00)
[2019-09-28] MEDS: PIPERACILLIN-TAZOBACTAM 3.375 GM in SODIUM CHLORIDE 0.9% 100 ML IVPB SCH ×2 (12:09→20:07)
[2019-09-28] MEDS: HYDROmorphone 1 MG/ML 1 ML SYRINGE IVP PRN (12:18)
[2019-09-29] MEDS: ACETAMINOPHEN IV (For NPO) 1,000 MG in EMPTY BAG 1 BAG IVPB SCH ×3 (01:01→01:04)
[2019-09-29] MEDS: PIPERACILLIN-TAZOBACTAM 3.375 GM in SODIUM CHLORIDE 0.9% 100 ML IVPB SCH ×3 (03:03→20:43)
[2019-09-29] MEDS: SODIUM CHLORIDE 0.9% 1,000 ML IV SCH ×2 (03:03→17:29)
[2019-09-29] MEDS: HYDROmorphone 1 MG/ML 1 ML SYRINGE IVP PRN ×3 (06:57→11:46)
[2019-09-29 06:58] LABS: Basophils % (A) 0 %; Eosinophils % (A) 0 %; HCT 41.2 % (39.0-53.0); HGB 13.4 gm/dL (13.0-17.5); Lymphocytes # (A) 0.8 k/uL (1.0-4.8); Lymphocytes % (A) 4 %; MCH 29.7 pg (25.0-35.0); MCHC 32.5 g/dL (31.0-37.0); MCV 91.4 fL (80.0-100.0); Mean Platelet Volume 8.2; Monocytes # (A) 0.6 k/uL (0-1.0); Monocytes % (A) 3 %; Neutrophils # (A) 19.3 k/uL (1.3-7.7); Neutrophils % (A) 93 %; Platelet Count 138 k/uL (150-450); RBC 4.51 m/uL (4.30-5.90); RDW 12.6 % (11.5-15.5); WBC 20.8 k/uL (3.8-10.6)
[2019-09-29 07:24] LABS: Calcium 8.6 mg/dL (8.4-10.2); Potassium 4.5 mmol/L (3.5-5.1)
[2019-09-29] MEDS: IOPAMIDOL CONTRAST (ORAL USE) VIAL PO PRN ×2 (09:03→10:08)
--- NOTE | 2019-09-29 10:01 | P.PN ---
Subjective Progress Note Date: 09/29/19 CHIEF COMPLAINT: Abdominal pain HISTORY OF PRESENT ILLNESS: Patient seen and examined at the bedside with Dr. Jamil. Patient reports increased abdominal pain today. Denies nausea or vomiting. WBC 20.8. Neutrophil count increased to 19.3. He has been afebrile. Mildly tachycardic. PHYSICAL EXAM: VITAL SIGNS: Reviewed. GENERAL: Well-developed in no acute distress. HEENT: No sclera icterus. Extraocular movements grossly intact. Moist buccal mucosa. Head is atraumatic, normocephalic. ABDOMEN: Soft. Nondistended. Tenderness upon palpation of lower abdomen, specifically left lower quadrant, worse in comparison to yesterday.. No peritoneal signs. NEUROLOGIC: Alert and oriented. Cranial nerves II through XII grossly intact. ASSESSMENT: 1. Abdominal pain 2. Acute sigmoid diverticulitis with phlegmon and abscess formation PLAN: -Monitor WBC. Repeat CBC in a.m. -Continue antibiotics -No immediate surgical intervention recommended at this time. -Patient will require colonoscopy outpatient in 4-[address] Jamil -Repeat computed tomography scan with IV and oral contrast -Continue nothing by mouth. May have ice chips and popsicles after CT scan is completed Nurse practitioner note has been reviewed by physician. Signing provider agrees with the documented findings, assessment, and plan of care. Objective - Vital Signs Vital signs: Vital Signs Temp 98.8 F 09/29/19 07:00 Pulse 99 09/29/19 07:03 Resp 17 09/29/19 07:03 BP 122/68 09/29/19 07:00 Pulse Ox 94 L 09/29/19 07:00 Intake & Output 09/28/19 09/29/19 09/29/19 18:59 06:59 18:59 Intake Total 1475 Balance 1475 Intake: Intake, IV Titration 1475 Amount ACETAMINOPHEN IV (For NPO 100 ) 1,000 mg In Empty Bag 1 bag @ 400 mls/hr IVPB Q6HR [facility] Rx#:[id number] Piperacillin-Tazobactam 3 200 .375 gm In Sodium Chloride 0.9% 100 ml @ 25 mls/hr IVPB Q8H [facility] Rx#: [id number] Sodium Chloride 0.9% 1, 1175 000 ml @ 75 mls/hr IV . [id number] [facility] Rx#:[id number] Other: Voiding Method Toilet Toilet # Voids 3 2 - Labs CBC & Chem 7: 09/29/19 06:22 09/29/19 06:22 Labs: Abnormal Lab Results - Last 24 Hours (Table) 09/29/19 09/29/19 Range/Units 06:22 06:22 WBC 20.8 H (3.8-10.6) k/uL Plt Count 138 L (150-450) k/uL Neutrophils # 19.3 H (1.3-7.7) k/uL Lymphocytes # 0.8 L (1.0-4.8) k/uL Glucose 109 H (74-99) mg/dL Microbiology - Last 24 Hours (Table) 09/28/19 02:02 Blood Culture - Preliminary Blood No Growth after 24 hours
[2019-09-29] MEDS: ARMODAFINIL 50 MG PO SCH (10:50)
[2019-09-29] MEDS: HEPARIN SODIUM,PORCINE 5,000 UNIT/ML 1 ML VIAL SQ SCH ×2 (10:52→20:43)
[2019-09-29] MEDS: FAMOTIDINE 20 MG/2 ML VIAL IV SCH ×2 (10:53→20:43)
[2019-09-29] MEDS: LISINOPRIL 20 MG TAB PO SCH (10:53)
[2019-09-29] MEDS: amLODIPine 10 MG TAB PO SCH (10:53)
--- NOTE | 2019-09-29 11:05 | CT ---
"EXAMINATION TYPE: CT abdomen pelvis w con DATE OF EXAM: 09/29/2019 COMPARISON: 09/28/2019 HISTORY: Increased abdominal pain CT DLP: 1972.8 mGycm CONTRAST: CT scan of the abdomen and pelvis is performed with Oral Contrast and with IV Contrast, patient injec valerio with 100 ml mL of Isovue 300. FINDINGS: LUNG BASES-: No visible nodule. Mild basilar atelectasis identified. LIVER/GB: No calcified gallstones. No space occupying hepatic lesion. Biliary tree is of normal ca liber. PANCREAS: No inflammation. No distinct mass. SPLEEN: No splenic enlargement. No lesion seen. ADRENALS: No nodule. No thickening. KIDNEYS/BLADDER: No hydronephrosis. Nonobstructing nephrolithiasis. No distinct renal mass. Urinary bladder grossly unremarkable. BOWEL: There is evidence of interval pneumoperitoneum. There is perforated sigmoid diverticulitis. Th ere is surrounding inflammatory change and fluid. Small nondrainable 1.1 cm focal abscess is difficul t to exclude within the low small bowel mesentery. There is a reactive small bowel ileus. GENITAL ORGANS: No gross abnormality. LYMPH NODES: No greater than 1cm abdominal or pelvic lymph nodes are appreciated. AORTA: No significant abnormality. OSSEOUS STRUCTURES: No significant abnormality is seen. OTHER: No significant additional abnormality is seen. IMPRESSION: 1. Sigmoid diverticulitis with interval perforation and pneumoperitoneum. Surrounding inflammatory ch edward and fluid. Tiny nondrainable abscess is difficult to exclude. Reactive ileus noted. A [place] level critical message alert has been initiated for Deondre Waldrop MD via the [employer] | Critical Results System on 09/29/2019 11:03 AM. This message alert has been sent to [place] [facility] via the preferences provided by the clinician for the receipt of Radiology Critical Findings. [employer] ID [id number]."
[2019-09-29] MEDS: KETOROLAC 30 MG/ML 1 ML VIAL IVP PRN ×2 (11:07→16:26)
--- NOTE | 2019-09-29 12:20 | P.PN ---
Progress Note - Text Progress Note Date: 09/29/19 The patient has increased abdominal pain. His CAT scan shows evidence of perforated diverticulitis with free air. I discussed his fundoplication. The patient will require emergent exploratory laparotomy with sigmoid colectomy and end colostomy. I discussed this with the patient's also.
[2019-09-29] MEDS ORDERED: PROPOFOL 10 MG/ML 20 ML VIAL IV ONE (12:35)
[2019-09-29] MEDS ORDERED: ePHEDrine SULFATE/0.9% NACL/PF 50 MG/5 ML SYRINGE IV ONE (12:35)
[2019-09-29] MEDS ORDERED: GLYCOPYRROLATE 0.2 MG/ML 2 ML VIAL ONE (12:35)
[2019-09-29] MEDS ORDERED: PHENYLEPHRINE-0.9% NACL SYG 1 MG/10 ML SYRINGE ONE (12:35)
[2019-09-29] MEDS ORDERED: ROCURONIUM BROMIDE 10 MG/ML 10 ML VIAL IV ONE (12:35)
[2019-09-29] MEDS ORDERED: fentaNYL (PF) 50 MCG/ML 2 ML AMP ONE (12:35)
[2019-09-29] MEDS ORDERED: NEOSTIGMINE 1 MG/ML 10 ML VIAL ONE (12:35)
[2019-09-29] MEDS ORDERED: SUCCINYLCHOLINE CHLORIDE 100 MG/5 ML SYR IV ONE (12:35)
[2019-09-29] MEDS ORDERED: LIDOCAINE 1% INJ 10MG/ML (20 ML MDV) ONE (12:35)
[2019-09-29] MEDS ORDERED: MIDAZOLAM 2 MG/2 ML VIAL ONE (12:35)
[2019-09-29] MEDS ORDERED: LACTATED RINGERS 1,000 ML IV ONE ×4 (12:39→14:35)
--- NOTE | 2019-09-29 12:56 | P.PN ---
Subjective this is a pleasant 54 years old male with past medical history of hypertension, sleep apnea on CPAP/BiPAP, kidney stone. Presents with abdominal pain of 2 days' durationof left lower quadrant and more towards the center, nonradiating, was severe about 9-10/10 in severity, come vertically improved with pain medication. Associated with fever of 101 which made the patient more worried so he decided to come to the hospital. However patient denies nausea vomiting, no change in bowel habits. No chest pain or dyspnea. No dizziness.no such episo ramesh in the past On admission patient has fever of 101.8. Melissa Vitas looks stable however his tachycardic of 110-113.labs showed leukocytosis of 20 1.1K. Sodium is 135, creatinine is normal at 1.1, liver enzymes not elevated. Chest x-ray: No acute process as per radiologist.urinalysis is negative. CT of the abdomen and pelvis with contrast: 8 mm left kidney stone, sigmoid colitis.an event. Diverticular abscess on admission patient was given Zosyn was started on Rocephin. He was given IV hydration and pain management. patient was placed nothing by mouth he smokes cigarettes, patient is counseled and he does not want nicotine patch. No alcohol or illicit tracts 09/29/2019 Patient is awake and oriented. No chest pain or dyspnea however he has worsening abdominal pain which was going up. He has intense abdominal pain. CAT scan of the abdomen and pelvis ordered by surgical team are following the patient closely showed possible perforation of diverticulitis with pneumoperitoneum. Patient's schedule and going for surgery today and vitals are stable. Lap showing persistent leukocytosis at 20.8 K. Cali Franson normal. Patient remains on Zosyn and IV fluids with pain medicine reView of systems CONSTITUTIONAL: No fever, no malaise, no fatigue. HEENT: No recent visual problems or hearing problems. Denied any sore throat. CARDIOVASCULAR: No orthopnea, PND, no palpitations, no syncope. PULMONARY: No shortness of breath, no cough, no hemoptysis. GASTROINTESTINAL: No diarrhea, no nausea, no vomiting. Normoactive bowel sounds. NEUROLOGICAL: No headaches, no weakness, no numbness. HEMATOLOGICAL: Denies any bleeding or petechiae. GENITOURINARY: Denies any burning micturition, frequency, or urgency. MUSCULOSKELETAL/RHEUMATOLOGICAL: Denies any joint pain, swelling, or any muscle pain. ENDOCRINE: Denies any polyuria or polydipsia. Active Medications Generic Name Dose Route Start Last Admin Trade Name Freq PRN Reason Stop Dose Admin Amlodipine Besylate 10 mg 09/28/19 09:00 09/29/19 10:53 Norvasc PO 10 mg DAILY [facility] Administration Famotidine 20 mg 09/28/19 09:00 09/29/19 10:53 Pepcid IV 20 mg Q12HR [facility] Administration Heparin Sodium (Porcine) 5,000 unit 09/28/19 09:00 09/29/19 10:52 Heparin SQ 5,000 unit Q12HR [facility] Administration Hydromorphone HCl 0.5 mg 09/28/19 02:45 09/28/19 20:08 Dilaudid IVP 0.5 mg Q3HR PRN Administration Moderate Pain Hydromorphone HCl 1 mg 09/28/19 09:34 09/29/19 11:46 Dilaudid IVP 1 mg Q3HR PRN Administration Pain Piperacillin Sod/Tazobactam 100 mls @ 25 mls/hr 09/28/19 12:00 09/29/19 11:47 Sod 3.375 gm/ Sodium Chloride IVPB 25 mls/hr Q8H [facility] Administration Sodium Chloride 1,000 mls @ 150 mls/hr 09/28/19 08:45 09/29/19 03:03 Saline 0.9% IV 75 mls/hr .Q6H40M [facility] Administration Ketorolac Tromethamine 30 mg 09/28/19 09:59 09/29/19 11:07 Toradol IVP 10/02/19 09:35 30 mg Q6HR PRN Administration Breakthrough Pain Lisinopril 20 mg 09/28/19 09:00 09/29/19 10:53 Zestril PO 20 mg DAILY [facility] Administration Naloxone HCl 0.2 mg 09/28/19 02:45 Narcan IV Q2M PRN Opioid Reversal Non-Formulary Medication 50 mg 09/28/19 09:00 09/29/19 10:50 Armodafinil [Nuvigil] PO Not Given QAM [facility] Objective - Vital Signs Vital signs: Vital Signs Temp 98.8 F 09/29/19 07:00 Pulse 99 09/29/19 07:03 Resp 17 09/29/19 07:03 BP 122/68 09/29/19 07:00 Pulse Ox 94 L 09/29/19 07:00 Intake & Output 09/28/19 09/29/19 09/29/19 18:59 06:59 18:59 Intake Total 1475 Balance 1475 Intake: Intake, IV Titration 1475 Amount ACETAMINOPHEN IV (For NPO 100 ) 1,000 mg In Empty Bag 1 bag @ 400 mls/hr IVPB Q6HR [facility] Rx#:[id number] Piperacillin-Tazobactam 3 200 .375 gm In Sodium Chloride 0.9% 100 ml @ 25 mls/hr IVPB Q8H [facility] Rx#: [id number] Sodium Chloride 0.9% 1, 1175 000 ml @ 75 mls/hr IV . [id number] [facility] Rx#:[id number] Other: Voiding Method Toilet Toilet # Voids 3 2 - Exam GENERAL: The patient is alert and oriented x3, not in any acute distress. Well developed, well nourished. HEENT: Pupils are round and equally reacting to light. EOMI. No scleral icterus. No conjunctival pallor. Normocephalic, atraumatic. No pharyngeal erythema. No thyromegaly. CARDIOVASCULAR: S1 and S2 present. No murmurs, rubs, or gallops. PULMONARY: Chest is clear to auscultation, no wheezing or crackles. -ABDOMEN: Soft, worsening LLQ but more towards the center tenderness, nondistended, normoactive bowel sounds. No palpable organomegaly. MUSCULOSKELETAL: No joint swelling or deformity. EXTREMITIES: No cyanosis, clubbing, or pedal edema. NEUROLOGICAL: Gross neurological examination did not reveal any focal deficits. SKIN: No rashes. No petechiae - Labs CBC & Chem 7: 09/29/19 06:22 09/29/19 06:22 Labs: Abnormal Lab Results - Last 24 Hours (Table) 09/29/19 09/29/19 Range/Units 06:22 06:22 WBC 20.8 H (3.8-10.6) k/uL Plt Count 138 L (150-450) k/uL Neutrophils # 19.3 H (1.3-7.7) k/uL Lymphocytes # 0.8 L (1.0-4.8) k/uL Glucose 109 H (74-99) mg/dL Microbiology - Last 24 Hours (Table) 09/28/19 02:02 Blood Culture - Preliminary Blood No Growth after 24 hours Assessment and Plan Assessment: acute diverticulitis, with perforation and pneumoperitoneum Peridiverticular abscess systemic inflammatory response syndrome was with fever, tachycardia and leukocytosis Sepsis secondary to above hypertension Sleep apnea on CPAP/BiPAP 8 mm left kidney stones nicotine dependence Plan: this is a pleasant 54 years old male who presents with fever and diverticulitis. Continue with antibiotics Zosyn. Consult GI on surgical services, continue with bowel rest and advanced diet when well tolerated, continue with IV fluids.patient is going for surgery by general surgery team . pain management Labs and medication were reviewed.. Continue same treatment. Continue with symptomatic treatment. Resume home medication. Monitor lytes and vitals. DVT and GI prophylaxis. Further recommendations of the clinical course of the patient DVT prophylaxis: Subcutaneous heparin GI Prophylaxis: Pepcid Prognosis is guarded
[2019-09-29] MEDS ORDERED: NALOXONE 0.4 MG/ML 1 ML VIAL IV PRN (13:08)
--- NOTE | 2019-09-29 13:45 | PN ---
PROGRESS NOTE DATE OF DICTATION: September 29, 2019 The patient is a 34 year-old pleasant white male admitted to the hospital with acute sigmoid diverticulitis with small diverticular abscess. The patient remains n.p.o. on broad-spectrum antibiotics. He continues to complain of abdominal more in the left lower quadrant area gradually radiating to the epigastric area. No nausea, vomiting. No fever, chills, night sweats. PHYSICAL EXAMINATION: Appears comfortable. No apparent distress. Vital signs stable. Blood pressure 122/68, pulse is 107, temperature 98.1. HEENT examination unremarkable. Conjunctivae pink. Sclerae anicteric. Oral cavity no lesions. NECK: No JVD or lymph node enlargement. CHEST: Clear to auscultation. HEART: Regular rate and rhythm. ABDOMEN: Soft. Mild tenderness in the left lower quadrant area as well as in the periumbilical area. No rebound or rigidity. EXTREMITIES: No pedal edema. Skin no rashes. NEUROLOGIC: Alert and oriented x3. No focal deficits. LABS: WBC 20.8, hemoglobin 13.4, platelets 138, neutrophils 19.3. The rest of the labs are within normal limits. IMPRESSION: Acute sigmoid diverticulitis complicated with small diverticular abscess. Presently on broad-spectrum antibiotics day #2. Still has persistent leukocytosis and tenderness in the left lower quadrant area. RECOMMENDATIONS: 1. Continue with broad-spectrum antibiotics. 2. Keep him n.p.o. as per surgical recommendations. 3. Repeat labs in the morning. Thank you for this consultation. MMODL / IJN: [id number] /
--- NOTE | 2019-09-29 13:48 | P.OP ---
Date of Procedure: 09/29/19 Preoperative Diagnosis: Perforated diverticulitis Postoperative Diagnosis: Perforated diverticulitis Procedure(s) Performed: Exploratory laparotomy Sigmoid colectomy with end colostomy Anesthesia: EDWIN Surgeon: Ari Jamil Estimated Blood Loss (ml): 30 Pathology: other (Sigmoid colon) Condition: stable Disposition: PACU Description of Procedure: Patient's placed on the operating table in supine position. He received general anesthesia. His abdomen was prepped and draped in usual sterile fashion. The abdomen was entered through a low midline incision. Upon the abdomen there was a large amount liquid stool. The abdomen was irrigated and then the sigmoid colon was examined. The; was very inflamed. There is evidence of a perforation of the proximal sigmoid colon. At this point the white line of Toldt was divided in the left colon was mobilized. The sigmoid colon was then transected proximally distally with the DANNY stapler. Using Enseal device the mesentery the bowel was divided. The specimens of pathology. The abdomen was irrigated with 4 L of normal saline. A suitable spot for the colostomy brought out in the left periumbilical area. The clot was created by dividing the fascia and then the rectus muscles. The colon was then brought out through the colostomy site. The fascia was closed with looped #1 PDS suture. Skin was closed donald. Several Telfa chuy were placed in the incision. The colostomy then matured with 3-0 Vicryl suture. Silverlon dressing was applied. Patient top she'll well and sent to recovery room stable condition.
[2019-09-29] MEDS: ROPIVACAINE 250 MG, HYDROMORPHONE (PF) 5 MG in SODIUM CHLORIDE 0.9% 200 ML EPIDURAL PRN (16:20)
[2019-09-29] MEDS: MORPHINE SULFATE 4 MG/ML SYRINGE IVP PRN ×2 (18:23→21:49)
[2019-09-30] MEDS: SODIUM CHLORIDE 0.9% 1,000 ML IV SCH ×3 (00:48→17:10)
[2019-09-30] MEDS: PIPERACILLIN-TAZOBACTAM 3.375 GM in SODIUM CHLORIDE 0.9% 100 ML IVPB SCH ×3 (02:49→20:03)
[2019-09-30] MEDS: MORPHINE SULFATE 4 MG/ML SYRINGE IVP PRN ×5 (02:50→19:58)
[2019-09-30] MEDS: ARMODAFINIL 50 MG PO SCH (07:27)
--- NOTE | 2019-09-30 07:28 | P.PN ---
Progress Note - Text 09/30 720am 34 yr old male s/p exp lap by Dr Jamil. pt has an epidural for post op pain control with solution running at 10cc /hr and has a vas of 3. no motor or sensory deficit noted. plan to continue epidural infusion.
[2019-09-30] MEDS: FAMOTIDINE 20 MG/2 ML VIAL IV SCH (07:35)
[2019-09-30] MEDS: LISINOPRIL 20 MG TAB PO SCH (07:35)
[2019-09-30] MEDS: amLODIPine 10 MG TAB PO SCH (07:35)
[2019-09-30] MEDS: HEPARIN SODIUM,PORCINE 5,000 UNIT/ML 1 ML VIAL SQ SCH ×2 (07:36→19:57)
[2019-09-30 07:43] LABS: Basophils % (A) 0 %; Eosinophils % (A) 0 %; HCT 36.1 % (39.0-53.0); HGB 11.7 gm/dL (13.0-17.5); Lymphocytes # (A) 0.9 k/uL (1.0-4.8); Lymphocytes % (A) 6 %; MCH 30.1 pg (25.0-35.0); MCHC 32.5 g/dL (31.0-37.0); MCV 92.6 fL (80.0-100.0); Mean Platelet Volume 9.1; Monocytes # (A) 0.6 k/uL (0-1.0); Monocytes % (A) 4 %; Neutrophils # (A) 12.6 k/uL (1.3-7.7); Neutrophils % (A) 88 %; Platelet Count 147 k/uL (150-450); RDW 12.8 % (11.5-15.5); WBC 14.3 k/uL (3.8-10.6)
[2019-09-30] MEDS ORDERED: SODIUM CHLORIDE 0.9% 1,000 ML IV ONE (07:48)
[2019-09-30 07:51] LABS: African American GFR (CKD) >90 (>60 ml/min/1.73 sqM); Anion Gap 6 mmol/L; Blood Urea Nitrogen 16 mg/dL (9-20); Calcium 7.8 mg/dL (8.4-10.2); Carbon Dioxide 23 mmol/L (22-30); Chloride 104 mmol/L (98-107); Glucose 100 mg/dL (74-99); Non-African American GFR(CKD) 88 (>60 ml/min/1.73 sqM); Potassium 4.2 mmol/L (3.5-5.1); Sodium 133 mmol/L (137-145)
--- NOTE | 2019-09-30 09:21 | P.PN ---
Subjective this is a pleasant 54 years old male with past medical history of hypertension, sleep apnea on CPAP/BiPAP, kidney stone. Presents with abdominal pain of 2 days' durationof left lower quadrant and more towards the center, nonradiating, was severe about 9-10/10 in severity, come vertically improved with pain medication. Associated with fever of 101 which made the patient more worried so he decided to come to the hospital. However patient denies nausea vomiting, no change in bowel habits. No chest pain or dyspnea. No dizziness.no such episo ramesh in the past On admission patient has fever of 101.8. Melissa Vitas looks stable however his tachycardic of 110-113.labs showed leukocytosis of 20 1.1K. Sodium is 135, creatinine is normal at 1.1, liver enzymes not elevated. Chest x-ray: No acute process as per radiologist.urinalysis is negative. CT of the abdomen and pelvis with contrast: 8 mm left kidney stone, sigmoid colitis.an event. Diverticular abscess on admission patient was given Zosyn was started on Rocephin. He was given IV hydration and pain management. patient was placed nothing by mouth he smokes cigarettes, patient is counseled and he does not want nicotine patch. No alcohol or illicit tracts 09/29/2019 Patient is awake and oriented. No chest pain or dyspnea however he has worsening abdominal pain which was going up. He has intense abdominal pain. CAT scan of the abdomen and pelvis ordered by surgical team are following the patient closely showed possible perforation of diverticulitis with pneumoperitoneum. Patient's schedule and going for surgery today and vitals are stable. Lap showing persistent leukocytosis at 20.8 K. Cali Franson normal. Patient remains on Zosyn and IV fluids with pain medicine 09/30/2019 Patient is status post Exploratory laparotomy with Sigmoid colectomy with end-colostomy. Today is postoperative day #1. Patient complaining of from pain at surgical site as expected. No nausea vomiting. He has sluggish bowel movement. He is passing gases but no stool in the colostomy back. She still running a fever of 100 today. Preoperative consult infectious disease. Epidural catheter is in place. Leukocytosis improving down to 14 K reView of systems CONSTITUTIONAL: No fever, no malaise, no fatigue. HEENT: No recent visual problems or hearing problems. Denied any sore throat. CARDIOVASCULAR: No orthopnea, PND, no palpitations, no syncope. PULMONARY: No shortness of breath, no cough, no hemoptysis. GASTROINTESTINAL: No diarrhea, no nausea, no vomiting. Normoactive bowel sounds. NEUROLOGICAL: No headaches, no weakness, no numbness. HEMATOLOGICAL: Denies any bleeding or petechiae. GENITOURINARY: Denies any burning micturition, frequency, or urgency. MUSCULOSKELETAL/RHEUMATOLOGICAL: Denies any joint pain, swelling, or any muscle pain. ENDOCRINE: Denies any polyuria or polydipsia. Active Medications Generic Name Dose Route Start Last Admin Trade Name Freq PRN Reason Stop Dose Admin Amlodipine Besylate 10 mg 09/28/19 09:00 09/29/19 10:53 Norvasc PO 10 mg DAILY [facility] Administration Famotidine 20 mg 09/28/19 09:00 09/29/19 10:53 Pepcid IV 20 mg Q12HR [facility] Administration Heparin Sodium (Porcine) 5,000 unit 09/28/19 09:00 09/29/19 10:52 Heparin SQ 5,000 unit Q12HR [facility] Administration Hydromorphone HCl 0.5 mg 09/28/19 02:45 09/28/19 20:08 Dilaudid IVP 0.5 mg Q3HR PRN Administration Moderate Pain Hydromorphone HCl 1 mg 09/28/19 09:34 09/29/19 11:46 Dilaudid IVP 1 mg Q3HR PRN Administration Pain Piperacillin Sod/Tazobactam 100 mls @ 25 mls/hr 09/28/19 12:00 09/29/19 11:47 Sod 3.375 gm/ Sodium Chloride IVPB 25 mls/hr Q8H [facility] Administration Sodium Chloride 1,000 mls @ 150 mls/hr 09/28/19 08:45 09/29/19 03:03 Saline 0.9% IV 75 mls/hr .Q6H40M [facility] Administration Ketorolac Tromethamine 30 mg 09/28/19 09:59 09/29/19 11:07 Toradol IVP 10/02/19 09:35 30 mg Q6HR PRN Administration Breakthrough Pain Lisinopril 20 mg 09/28/19 09:00 09/29/19 10:53 Zestril PO 20 mg DAILY [facility] Administration Naloxone HCl 0.2 mg 09/28/19 02:45 Narcan IV Q2M PRN Opioid Reversal Non-Formulary Medication 50 mg 09/28/19 09:00 09/29/19 10:50 Armodafinil [Nuvigil] PO Not Given QAM [facility] Objective - Vital Signs Vital signs: Vital Signs Temp 100.0 F H 09/30/19 07:00 Pulse 109 H 09/30/19 07:00 Resp 17 09/30/19 07:00 BP 111/75 09/30/19 07:00 Pulse Ox 90 L 09/30/19 07:00 Intake & Output 09/29/19 09/30/19 09/30/19 18:59 06:59 18:59 Intake Total 3600 1825 Output Total 575 350 Balance 3025 1475 Intake: IV 2700 Intake, IV Titration 900 1825 Amount Piperacillin-Tazobactam 3 100 .375 gm In Sodium Chloride 0.9% 100 ml @ 25 mls/hr IVPB Q8H [facility] Rx#: [id number] Sodium Chloride 0.9% 1, 900 1725 000 ml @ 150 mls/hr IV . Q6H40M [facility] Rx#:[id number] Output: Urine 475 350 Estimated Blood Loss 100 Other: Voiding Method Indwelling Catheter Indwelling Catheter Indwelling Catheter # Voids 2 # Bowel Movements 1 - Exam GENERAL: The patient is alert and oriented x3, not in any acute distress. Well developed, well nourished. HEENT: Pupils are round and equally reacting to light. EOMI. No scleral icterus. No conjunctival pallor. Normocephalic, atraumatic. No pharyngeal erythema. No thyromegaly. CARDIOVASCULAR: S1 and S2 present. No murmurs, rubs, or gallops. PULMONARY: Chest is clear to auscultation, no wheezing or crackles. -ABDOMEN: Soft, worsening LLQ but more towards the center tenderness, nondistended, normoactive bowel sounds. No palpable organomegaly. MUSCULOSKELETAL: No joint swelling or deformity. EXTREMITIES: No cyanosis, clubbing, or pedal edema. NEUROLOGICAL: Gross neurological examination did not reveal any focal deficits. SKIN: No rashes. No petechiae - Labs CBC & Chem 7: 09/30/19 07:25 09/30/19 07:25 Labs: Abnormal Lab Results - Last 24 Hours (Table) 09/30/19 09/30/19 Range/Units 07:25 07:25 WBC 14.3 H (3.8-10.6) k/uL RBC 3.90 L (4.30-5.90) m/uL Hgb 11.7 L (13.0-17.5) gm/dL Hct 36.1 L (39.0-53.0) % Plt Count 147 L (150-450) k/uL Neutrophils # 12.6 H (1.3-7.7) k/uL Lymphocytes # 0.9 L (1.0-4.8) k/uL Sodium 133 L (137-145) mmol/L Glucose 100 H (74-99) mg/dL Calcium 7.8 L (8.4-10.2) mg/dL Microbiology - Last 24 Hours (Table) 09/28/19 02:02 Blood Culture - Preliminary Blood No Growth after 48 hours Assessment and Plan Assessment: acute diverticulitis, with perforation and pneumoperitoneum. status post Exploratory laparotomy with Sigmoid colectomy with end-colostomy Peridiverticular abscess systemic inflammatory response syndrome was with fever, tachycardia and leukocytosis Sepsis secondary to above hypertension Sleep apnea on CPAP/BiPAP 8 mm left kidney stones nicotine dependence Plan: this is a pleasant 54 years old male who presents with fever and diverticulitis. Continue with antibiotics Zosyn. Consult GI on surgical services, continue with bowel rest and advanced diet when well tolerated, continue with IV fluids.pain management. ID consult Labs and medication were reviewed.. Continue same treatment. Continue with symptomatic treatment. Resume home medication. Monitor lytes and vitals. DVT and GI prophylaxis. Further recommendations of the clinical course of the patient DVT prophylaxis: Subcutaneous heparin GI Prophylaxis: Pepcid Prognosis is guarded
--- NOTE | 2019-09-30 10:05 | P.PN ---
Subjective Progress Note Date: 09/30/19 CHIEF COMPLAINT: Abdominal pain HISTORY OF PRESENT ILLNESS: Patient seen and examined at the bedside with Dr. Jamil. Repeat CAT scan performed yesterday revealed evidence of perforated diverticulitis with free air. Patient underwent exploratory laparotomy with sigmoid colectomy and end colostomy. Postop day #1. Patient reports his abdominal pain is tolerable at this time. Epidural is infusing at 10 mL an hour. He is tolerating clear liquid diet. Ostomy intact with air noted. No stool at this time. He is using his incentive spirometer. He is febrile this morning and mildly tachycardic. WBC 14.3. PHYSICAL EXAM: VITAL SIGNS: Reviewed. GENERAL: Well-developed in no acute distress. HEENT: No sclera icterus. Extraocular movements grossly intact. Moist buccal mucosa. Head is atraumatic, normocephalic. ABDOMEN: Soft. Nondistended. Ostomy noted with flatus. No stool at this time. Dressing to midline incision clean dry and intact. NEUROLOGIC: Alert and oriented. Cranial nerves II through XII grossly intact. ASSESSMENT: 1. Abdominal pain 2. Acute sigmoid diverticulitis with phlegmon and abscess formation PLAN: -Monitor WBC. Continue IV antibiotics. Infectious disease has been consulted. -1 L normal saline bolus. Continue IV fluids at 150 mL an hour. -Continue clear liquid diet. Await further output from ostomy -Pain control. Continue epidural. Will discontinue postop day #3. -Continue Solis catheter while epidural in place -Increase activity as tolerated -Incentive spirometry -Ostomy resource nurse on consult for ostomy education Nurse practitioner note has been reviewed by physician. Signing provider agrees with the documented findings, assessment, and plan of care. Objective - Vital Signs Vital signs: Vital Signs Temp 100.0 F H 09/30/19 07:00 Pulse 109 H 09/30/19 07:00 Resp 17 09/30/19 07:00 BP 111/75 09/30/19 07:00 Pulse Ox 90 L 09/30/19 07:00 Intake & Output 09/29/19 09/30/19 09/30/19 18:59 06:59 18:59 Intake Total 3600 1825 Output Total 575 350 Balance 3025 1475 Intake: IV 2700 Intake, IV Titration 900 1825 Amount Piperacillin-Tazobactam 3 100 .375 gm In Sodium Chloride 0.9% 100 ml @ 25 mls/hr IVPB Q8H [facility] Rx#: [id number] Sodium Chloride 0.9% 1, 900 1725 000 ml @ 150 mls/hr IV . Q6H40M [facility] Rx#:[id number] Output: Urine 475 350 Estimated Blood Loss 100 Other: Voiding Method Indwelling Catheter Indwelling Catheter Indwelling Catheter # Voids 2 # Bowel Movements 1 - Labs CBC & Chem 7: 09/30/19 07:25 09/30/19 07:25 Labs: Abnormal Lab Results - Last 24 Hours (Table) 09/30/19 09/30/19 Range/Units 07:25 07:25 WBC 14.3 H (3.8-10.6) k/uL RBC 3.90 L (4.30-5.90) m/uL Hgb 11.7 L (13.0-17.5) gm/dL Hct 36.1 L (39.0-53.0) % Plt Count 147 L (150-450) k/uL Neutrophils # 12.6 H (1.3-7.7) k/uL Lymphocytes # 0.9 L (1.0-4.8) k/uL Sodium 133 L (137-145) mmol/L Glucose 100 H (74-99) mg/dL Calcium 7.8 L (8.4-10.2) mg/dL Microbiology - Last 24 Hours (Table) 09/28/19 02:02 Blood Culture - Preliminary Blood No Growth after 48 hours
[2019-09-30] MEDS: ROPIVACAINE 250 MG, HYDROMORPHONE (PF) 5 MG in SODIUM CHLORIDE 0.9% 200 ML EPIDURAL PRN (12:58)
[2019-09-30] MEDS: FAMOTIDINE 20 MG TAB PO SCH (19:58)
--- NOTE | 2019-09-30 23:56 | CONS ---
CONSULTATION DATE OF SERVICE: 09/30/2019 REASON FOR CONSULTATION: Perforated sigmoid diverticulitis; antibiotic recommendations. HISTORY OF PRESENT ILLNESS: The patient is a 34-year-old male presenting to the ER at [facility] on September 28 early in the morning with the chief complaint of abdominal pain. The patient said his symptoms were going on since around Friday, with initially having pain mostly in the left lower quadrant area, more of a dull aching pain that has gradually increased in severity. The patient had associated nausea but no vomiting. No diarrhea or constipation. He did have some chills and fever with worsening pain. The patient presented to the ER. On arrival at the ER on September 28, the patient was febrile with a temperature of 101 degrees Fahrenheit. The patient did have tachycardia and elevated white count of 21,000. A CT of abdomen and pelvis was done which showed evidence of sigmoid diverticulitis with microperforation. The patient was admitted to the hospital and was treated with IV Zosyn. Over the next 24 hours the patient's condition get worse and he did have worsening abdominal pain. Repeat CT showed evidence of pneumoperitoneum. Subsequently the patient was taken to the OR yesterday and is status post sigmoid colectomy and diverting colostomy. Infectious Disease was consulted for further recommendations regarding antibiotic therapy. The patient's abdominal pain has slightly eased off; it is more of an incisional pain now than his initial left lower quadrant pain. Still has some nausea but no vomiting. Minimal output in his colostomy bag. No chest pain, shortness of breath or cough or any other symptoms. REVIEW OF SYSTEMS: Positive points have been mentioned in the HPI. Rest of the systems are negative. PAST MEDICAL HISTORY: 1. Hypertension. 2. Sleep apnea. 3. Kidney stone. PAST SURGICAL HISTORY: 1. Bilateral knee ACL reconstruction. 2. Nasal surgery. SOCIAL HISTORY: Current everyday smoker; smokes about a pack a day. Rarely drinks. No drug use. FAMILY HISTORY: No pertinent findings noticed. ALLERGIES: NO KNOWN DRUG ALLERGIES. MEDICATIONS: The patient is currently on: 1. Norvasc. 2. Pepcid. 3. Heparin. 4. Toradol. 5. Zestril. 6. Morphine sulfate. 7. Zosyn 3.375 grams q.8 hours. PHYSICAL EXAMINATION: Blood pressure is 144/90 with a pulse of 111, temperature 100.1. He is 90% on 3 L nasal cannula. General description is a middle-aged male lying in bed in no distress. No tachypnea or accessory muscle of respiration use. HEENT examination shows pallor. No scleral icterus. Oral mucosa membrane is dry. No pharyngeal erythema or thrush. NECK: Trachea is central. No thyromegaly. LUNGS: Unlabored breathing. Decreased breath sounds in the bases. No wheeze. HEART: S1, S2. Regular rate and rhythm. ABDOMEN: Soft. Mildly distended. No guarding or rigidity. EXTREMITIES: No edema of feet. SKIN EXAMINATION: No rash or mass palpable. NEUROLOGICAL: The patient is awake, alert, oriented x3. Mood and affect normal. LABS/IMAGING: Hemoglobin is 11.7, white count 14.3, down from initial elevation of 21.1. BUN of 16, creatinine 1.08. UA has been negative. Report of CT of abdomen and pelvis as mentioned above. DIAGNOSTIC IMPRESSION AND PLAN: Patient admitted to hospital with sepsis in this patient who did have a fever, tachycardia, elevated white count. Source is acute sigmoid diverticulitis with microperforation with subsequent worsening, failing medical therapy. The patient is status post laparotomy with diverting colostomy and sigmoid resection. Need to cover for enteric Gram-negative, both aerobes and anaerobes. PLAN: 1. Zosyn 3.375 mg q.8 hours should provide adequate antibiotic coverage for underlying perforated diverticulitis. 2. Gentle IV fluid. 3. Will follow up on clinical condition and culture to further adjust medication if needed. Thank you for this consultation. Will follow this patient along with you. MMODL / IJN: [id number] /
[2019-10-01] MEDS: MORPHINE SULFATE 4 MG/ML SYRINGE IVP PRN ×5 (00:09→23:31)
[2019-10-01] MEDS: SODIUM CHLORIDE 0.9% 1,000 ML IV SCH ×5 (03:09→23:27)
[2019-10-01] MEDS: PIPERACILLIN-TAZOBACTAM 3.375 GM in SODIUM CHLORIDE 0.9% 100 ML IVPB SCH ×3 (04:01→20:07)
[2019-10-01 07:19] LABS: Basophils % (A) 0 %; Eosinophils # (A) 0.1 k/uL (0-0.7); Eosinophils % (A) 1 %; HCT 38.7 % (39.0-53.0); HGB 12.5 gm/dL (13.0-17.5); Lymphocytes # (A) 0.7 k/uL (1.0-4.8); Lymphocytes % (A) 4 %; MCH 29.7 pg (25.0-35.0); MCHC 32.3 g/dL (31.0-37.0); MCV 92.1 fL (80.0-100.0); Mean Platelet Volume 8.6; Monocytes # (A) 0.7 k/uL (0-1.0); Monocytes % (A) 4 %; Neutrophils # (A) 13.6 k/uL (1.3-7.7); Neutrophils % (A) 89 %; Platelet Count 198 k/uL (150-450); RDW 12.9 % (11.5-15.5); WBC 15.3 k/uL (3.8-10.6)
[2019-10-01] MEDS: FAMOTIDINE 20 MG TAB PO SCH ×2 (07:21→20:07)
[2019-10-01] MEDS: LISINOPRIL 20 MG TAB PO SCH (07:21)
[2019-10-01] MEDS: HEPARIN SODIUM,PORCINE 5,000 UNIT/ML 1 ML VIAL SQ SCH ×2 (07:21→20:07)
[2019-10-01] MEDS: amLODIPine 10 MG TAB PO SCH (07:21)
[2019-10-01 07:29] LABS: African American GFR (CKD) >90 (>60 ml/min/1.73 sqM); Anion Gap 9 mmol/L; Blood Urea Nitrogen 16 mg/dL (9-20); Calcium 8.1 mg/dL (8.4-10.2); Carbon Dioxide 22 mmol/L (22-30); Chloride 105 mmol/L (98-107); Glucose 104 mg/dL (74-99); Non-African American GFR(CKD) >90 (>60 ml/min/1.73 sqM); Potassium 4.3 mmol/L (3.5-5.1); Sodium 136 mmol/L (137-145)
[2019-10-01] MEDS ORDERED: METOCLOPRAMIDE 5 MG/ML 2 ML VIAL IVP PRN (07:43)
[2019-10-01] MEDS: ONDANSETRON 4 MG/2 ML VIAL IVP PRN (07:47)
[2019-10-01] MEDS ORDERED: METOCLOPRAMIDE 5 MG/ML 2 ML VIAL IVP STA (08:53)
[2019-10-01] MEDS: ARMODAFINIL 50 MG PO SCH (09:10)
[2019-10-01] MEDS: MAG HYDROX/AL HYDROX/SIMETH 30 ML CUP PO PRN ×2 (09:35→22:28)
--- NOTE | 2019-10-01 12:20 | P.PN ---
<Janet Gonzalez - Last Filed: 10/01/19 12:14> Subjective Progress Note Date: 10/01/19 CHIEF COMPLAINT: Abdominal pain HISTORY OF PRESENT ILLNESS: Patient seen and examined at the bedside. Patient is s/p exploratory laparotomy with sigmoid colectomy and end colostomy. Postop day #2. Patient reports his abdominal pain is tolerable at this time. Epidural is infusing at 10 mL an hour. He is on a clear liquid diet. He reports some nausea this morning. Also reports heartburn. Ostomy with small amount of stool and flatus noted. Patient reports he was ambulating in the hallway yesterday. Tachycardia has improved. Heart rate in the 90s. He is afebrile. Blood pressure stable. WBC 15.3. PHYSICAL EXAM: VITAL SIGNS: Reviewed GENERAL: Well-developed in no acute distress. HEENT: No sclera icterus. Extraocular movements grossly intact. Moist buccal mucosa. Head is atraumatic, normocephalic. Hears conversational speech. No nasal drainage. NECK: Supple without lymphadenopathy. CHEST: Non-labored respirations and equal bilateral excursions. CARDIOVASCULAR: Regular rate with regular rhythm. Palpable 2+ radial pulses. ABDOMEN: Appears more firm today. Distended. Ostomy noted with flatus and small amount of stool noted. Dressing to midline incision clean dry and intact. MUSCULOSKELETAL: No clubbing or cyanosis. NEUROLOGIC: No focal or lateralizing signs. Cranial nerves II through XII grossly intact. PSYCH: Appropriate affect. Alert and oriented to person, place and time. SKIN: Well perfused. Good skin turgor. ASSESSMENT: 1. Abdominal pain 2. Acute sigmoid diverticulitis with phlegmon and abscess formation PLAN: -Monitor WBC. Continue IV antibiotics. Infectious disease has been consulted. -Continue IV fluids at 150 mL an hour. -Continue clear liquid diet. Do not advance at this time due to nausea -Zofran and Reglan PRN -10mg Reglan x 1 dose now -Maalox PRN for heartburn. Continue Pepcid q12 hours -Pain control. Continue epidural. Will discontinue postop day #3. -Continue Solis catheter while epidural in place -Increase activity as tolerated -Incentive spirometry -Ostomy resource nurse on consult for ostomy education Nurse practitioner note has been reviewed by physician. Signing provider agrees with the documented findings, assessment, and plan of care. Objective - Vital Signs Vital signs: Vital Signs Temp 98.1 F 10/01/19 07:00 Pulse 96 10/01/19 07:00 Resp 20 10/01/19 07:00 BP 142/90 10/01/19 07:00 Pulse Ox 92 L 10/01/19 07:00 Intake & Output 09/30/19 10/01/19 10/01/19 18:59 06:59 18:59 Intake Total 206.333 350 Output Total 675 600 Balance -468.667 -250 Intake: Intake, IV Titration 206.333 350 Amount Ropivacaine 250 mg 206.333 Hydromorphone (Pf) 5 mg In Sodium Chloride 0.9% 200 ml @ Per Protocol EPIDURAL .Q0M PRN Rx#: [id number] Sodium Chloride 0.9% 1, 350 000 ml @ 150 mls/hr IV . Q6H40M [facility] Rx#:[id number] Output: Urine 675 600 Other: Voiding Method Indwelling Catheter Indwelling Catheter # Voids 3 - Labs CBC & Chem 7: 10/01/19 06:59 10/01/19 06:59 Labs: Abnormal Lab Results - Last 24 Hours (Table) 10/01/19 10/01/19 Range/Units 06:59 06:59 WBC 15.3 H (3.8-10.6) k/uL RBC 4.20 L (4.30-5.90) m/uL Hgb 12.5 L (13.0-17.5) gm/dL Hct 38.7 L (39.0-53.0) % Neutrophils # 13.6 H (1.3-7.7) k/uL Lymphocytes # 0.7 L (1.0-4.8) k/uL Sodium 136 L (137-145) mmol/L Glucose 104 H (74-99) mg/dL Calcium 8.1 L (8.4-10.2) mg/dL Microbiology - Last 24 Hours (Table) 09/28/19 02:02 Blood Culture - Preliminary Blood No Growth after 72 hours <Lucero Liriano - Last Filed: 10/02/19 12:07> Subjective As above. Epidural to be discontinued tomorrow. Objective - Vital Signs Vital signs: Vital Signs Temp 98.4 F 10/02/19 07:00 Pulse 92 10/02/19 07:00 Resp 17 10/02/19 07:00 BP 133/84 10/02/19 07:00 Pulse Ox 95 10/02/19 07:00 Intake & Output 10/01/19 10/02/19 10/02/19 18:59 06:59 18:59 Intake Total 250 625 Output Total 700 400 Balance -450 225 Weight 108.862 kg Intake: Intake, IV Titration 250 625 Amount Piperacillin-Tazobactam 3 100 .375 gm In Sodium Chloride 0.9% 100 ml @ 25 mls/hr IVPB Q8H [facility] Rx#: [id number] Ropivacaine 250 mg 250 Hydromorphone (Pf) 5 mg In Sodium Chloride 0.9% 200 ml @ Per Protocol EPIDURAL .Q0M PRN Rx#: [id number] Sodium Chloride 0.9% 1, 525 000 ml @ 75 mls/hr IV . [id number] [facility] Rx#:[id number] Output: Urine 700 400 Other: Voiding Method Indwelling Catheter Indwelling Catheter # Emeses 2 - Labs CBC & Chem 7: 10/02/19 06:44 10/01/19 06:59 Labs: Abnormal Lab Results - Last 24 Hours (Table) 10/02/19 Range/Units 06:44 WBC 17.7 H (3.8-10.6) k/uL Neutrophils # 16.1 H (1.3-7.7) k/uL Lymphocytes # 0.7 L (1.0-4.8) k/uL Microbiology - Last 24 Hours (Table) 09/28/19 02:02 Blood Culture - Preliminary Blood No Growth after 96 hours
--- NOTE | 2019-10-01 13:31 | P.PN ---
Subjective this is a pleasant 54 years old male with past medical history of hypertension, sleep apnea on CPAP/BiPAP, kidney stone. Presents with abdominal pain of 2 days' durationof left lower quadrant and more towards the center, nonradiating, was severe about 9-10/10 in severity, come vertically improved with pain medication. Associated with fever of 101 which made the patient more worried so he decided to come to the hospital. However patient denies nausea vomiting, no change in bowel habits. No chest pain or dyspnea. No dizziness.no such episo ramesh in the past On admission patient has fever of 101.8. Melissa Vitas looks stable however his tachycardic of 110-113.labs showed leukocytosis of 20 1.1K. Sodium is 135, creatinine is normal at 1.1, liver enzymes not elevated. Chest x-ray: No acute process as per radiologist.urinalysis is negative. CT of the abdomen and pelvis with contrast: 8 mm left kidney stone, sigmoid colitis.an event. Diverticular abscess on admission patient was given Zosyn was started on Rocephin. He was given IV hydration and pain management. patient was placed nothing by mouth he smokes cigarettes, patient is counseled and he does not want nicotine patch. No alcohol or illicit tracts 09/29/2019 Patient is awake and oriented. No chest pain or dyspnea however he has worsening abdominal pain which was going up. He has intense abdominal pain. CAT scan of the abdomen and pelvis ordered by surgical team are following the patient closely showed possible perforation of diverticulitis with pneumoperitoneum. Patient's schedule and going for surgery today and vitals are stable. Lap showing persistent leukocytosis at 20.8 K. Cali Franson normal. Patient remains on Zosyn and IV fluids with pain medicine 09/30/2019 Patient is status post Exploratory laparotomy with Sigmoid colectomy with end-colostomy. Today is postoperative day #1. Patient complaining of from pain at surgical site as expected. No nausea vomiting. He has sluggish bowel movement. He is passing gases but no stool in the colostomy back. She still running a fever of 100 today. Preoperative consult infectious disease. Epidural catheter is in place. Leukocytosis improving down to 14 K 10/01/2019 Patient is status post Exploratory laparotomy with Sigmoid colectomy with end- colostomy. Today is postoperative day #2. Patient still have the epidural and Solis catheter in place and his pain is controlled. Patient was last night when he is ready however his abdomen is slightly distended, there is stool and colostomy bag and he is passing gases. Because of his abdominal distention patient was kept on a clear liquid diet. He still have leukocytosis of 15.3 K, sodium 136, glucose is controlled. Vitals are stable and last time he had fever was last evening at 100.1. Infectious disease input is appreciated and he is in agreement with the Zosyn for the patient now. Objective - Vital Signs Vital signs: Vital Signs Temp 98.1 F 10/01/19 07:00 Pulse 96 10/01/19 07:00 Resp 20 10/01/19 07:00 BP 142/90 10/01/19 07:00 Pulse Ox 92 L 10/01/19 07:00 Intake & Output 09/30/19 10/01/19 10/01/19 18:59 06:59 18:59 Intake Total 206.333 350 Output Total 675 600 Balance -468.667 -250 Intake: Intake, IV Titration 206.333 350 Amount Ropivacaine 250 mg 206.333 Hydromorphone (Pf) 5 mg In Sodium Chloride 0.9% 200 ml @ Per Protocol EPIDURAL .Q0M PRN Rx#: [id number] Sodium Chloride 0.9% 1, 350 000 ml @ 150 mls/hr IV . Q6H40M [facility] Rx#:[id number] Output: Urine 675 600 Other: Voiding Method Indwelling Catheter Indwelling Catheter # Voids 3 - Exam GENERAL: The patient is alert and oriented x3, not in any acute distress. Well developed, well nourished. HEENT: Pupils are round and equally reacting to light. EOMI. No scleral icterus. No conjunctival pallor. Normocephalic, atraumatic. No pharyngeal erythema. No thyromegaly. CARDIOVASCULAR: S1 and S2 present. No murmurs, rubs, or gallops. PULMONARY: Chest is clear to auscultation, no wheezing or crackles. -ABDOMEN: Soft, worsening LLQ but more towards the center tenderness, nondistended, normoactive bowel sounds. No palpable organomegaly. MUSCULOSKELETAL: No joint swelling or deformity. EXTREMITIES: No cyanosis, clubbing, or pedal edema. NEUROLOGICAL: Gross neurological examination did not reveal any focal deficits. SKIN: No rashes. No petechiae - Labs CBC & Chem 7: 10/01/19 06:59 10/01/19 06:59 Labs: Abnormal Lab Results - Last 24 Hours (Table) 10/01/19 10/01/19 Range/Units 06:59 06:59 WBC 15.3 H (3.8-10.6) k/uL RBC 4.20 L (4.30-5.90) m/uL Hgb 12.5 L (13.0-17.5) gm/dL Hct 38.7 L (39.0-53.0) % Neutrophils # 13.6 H (1.3-7.7) k/uL Lymphocytes # 0.7 L (1.0-4.8) k/uL Sodium 136 L (137-145) mmol/L Glucose 104 H (74-99) mg/dL Calcium 8.1 L (8.4-10.2) mg/dL Microbiology - Last 24 Hours (Table) 09/28/19 02:02 Blood Culture - Preliminary Blood No Growth after 72 hours Assessment and Plan Assessment: acute diverticulitis, with perforation and pneumoperitoneum. status post Exploratory laparotomy with Sigmoid colectomy with end-colostomy Peridiverticular abscess systemic inflammatory response syndrome was with fever, tachycardia and leukocytosis Sepsis secondary to above hypertension Sleep apnea on CPAP/BiPAP 8 mm left kidney stones nicotine dependence Plan: this is a pleasant 54 years old male who presents with fever and diverticulitis. Continue with antibiotics Zosyn. Consult GI on surgical services, continue with bowel rest and advanced diet when well tolerated, continue with IV fluids.pain management. ID consult Labs and medication were reviewed.. Continue same treatment. Continue with symptomatic treatment. Resume home medication. Monitor lytes and vitals. DVT and GI prophylaxis. Further recommendations of the clinical course of the patient DVT prophylaxis: Subcutaneous heparin GI Prophylaxis: Pepcid Prognosis is guarded
--- NOTE | 2019-10-01 13:45 | PN ---
PROGRESS NOTE DATE OF SERVICE: 10/01/2019 REASON FOR FOLLOWUP: Acute sigmoid diverticulitis with perforation and secondary peritonitis. INTERVAL HISTORY: The patient is currently afebrile. The patient is breathing comfortably. The patient denies having any chest pain or cough. Abdominal pain has improved. No nausea, no vomiting. There is no output in his colostomy bag. PHYSICAL EXAMINATION: Blood pressure 142/90 with pulse 96, temperature 98.1, he is 92% on 3 L nasal cannula. General description is a young male, lying in bed in no distress. RESPIRATORY SYSTEM: Unlabored breathing, clear to auscultation anteriorly. HEART: S1, S2. Regular rate and rhythm. ABDOMEN: Soft, mildly distended. No guarding or rigidity. LABS: Hemoglobin is 12.5, white count 15.3, and creatinine 0.85. Blood culture has been negative. DIAGNOSTIC IMPRESSION AND PLAN: Patient with acute sigmoid diverticulitis with perforation, status post laparotomy and diverting colostomy. The patient is currently on Zosyn. Will monitor closely his clinical course and suggestions further if needed. MMODL / IJN: [id number] /
--- NOTE | 2019-10-01 14:19 | P.PN ---
Progress Note - Text 10/01 659am 34-year-old male status post exploratory lap by Dr. Jamil. Patient has an epidural catheter was solution running at 10 mL an hour, VAS of 2 with known nausea vomiting or pruritus. Patient has no motor or sensory deficits and has been ambulating well. Found to continue epidural infusion
[2019-10-01] MEDS: ALVIMOPAN 12 MG CAPSULE PO SCH ×2 (14:35→20:07)
[2019-10-01] MEDS: ROPIVACAINE 250 MG, HYDROMORPHONE (PF) 5 MG in SODIUM CHLORIDE 0.9% 200 ML EPIDURAL PRN (14:35)
[2019-10-01 14:40] VITALS: BMI 35.4
[2019-10-02] MEDS: PIPERACILLIN-TAZOBACTAM 3.375 GM in SODIUM CHLORIDE 0.9% 100 ML IVPB SCH ×3 (03:34→23:47)
[2019-10-02] MEDS: MORPHINE SULFATE 4 MG/ML SYRINGE IVP PRN ×2 (03:34→07:53)
[2019-10-02 07:33] LABS: Basophils # (A) 0.1 k/uL (0-0.2); Basophils % (A) 0 %; Eosinophils % (A) 0 %; HGB 13.5 gm/dL (13.0-17.5); Lymphocytes # (A) 0.7 k/uL (1.0-4.8); Lymphocytes % (A) 4 %; MCH 29.6 pg (25.0-35.0); MCV 92.6 fL (80.0-100.0); Monocytes # (A) 0.7 k/uL (0-1.0); Monocytes % (A) 4 %; Neutrophils # (A) 16.1 k/uL (1.3-7.7); Neutrophils % (A) 91 %; Platelet Count 294 k/uL (150-450); RBC 4.54 m/uL (4.30-5.90); RDW 13.1 % (11.5-15.5); WBC 17.7 k/uL (3.8-10.6)
[2019-10-02] MEDS: ONDANSETRON 4 MG/2 ML VIAL IVP PRN (07:48)
[2019-10-02] MEDS: HEPARIN SODIUM,PORCINE 5,000 UNIT/ML 1 ML VIAL SQ SCH ×2 (07:55→21:50)
--- NOTE | 2019-10-02 08:01 | P.PN ---
Subjective this is a pleasant 54 years old male with past medical history of hypertension, sleep apnea on CPAP/BiPAP, kidney stone. Presents with abdominal pain of 2 days' durationof left lower quadrant and more towards the center, nonradiating, was severe about 9-10/10 in severity, come vertically improved with pain medication. Associated with fever of 101 which made the patient more worried so he decided to come to the hospital. However patient denies nausea vomiting, no change in bowel habits. No chest pain or dyspnea. No dizziness.no such episo ramesh in the past On admission patient has fever of 101.8. Melissa Vitas looks stable however his tachycardic of 110-113.labs showed leukocytosis of 20 1.1K. Sodium is 135, creatinine is normal at 1.1, liver enzymes not elevated. Chest x-ray: No acute process as per radiologist.urinalysis is negative. CT of the abdomen and pelvis with contrast: 8 mm left kidney stone, sigmoid colitis.an event. Diverticular abscess on admission patient was given Zosyn was started on Rocephin. He was given IV hydration and pain management. patient was placed nothing by mouth he smokes cigarettes, patient is counseled and he does not want nicotine patch. No alcohol or illicit tracts 09/29/2019 Patient is awake and oriented. No chest pain or dyspnea however he has worsening abdominal pain which was going up. He has intense abdominal pain. CAT scan of the abdomen and pelvis ordered by surgical team are following the patient closely showed possible perforation of diverticulitis with pneumoperitoneum. Patient's schedule and going for surgery today and vitals are stable. Lap showing persistent leukocytosis at 20.8 K. Cali Franson normal. Patient remains on Zosyn and IV fluids with pain medicine 09/30/2019 Patient is status post Exploratory laparotomy with Sigmoid colectomy with end-colostomy. Today is postoperative day #1. Patient complaining of from pain at surgical site as expected. No nausea vomiting. He has sluggish bowel movement. He is passing gases but no stool in the colostomy back. She still running a fever of 100 today. Preoperative consult infectious disease. Epidural catheter is in place. Leukocytosis improving down to 14 K 10/01/2019 Patient is status post Exploratory laparotomy with Sigmoid colectomy with end- colostomy. Today is postoperative day #2. Patient still have the epidural and Solis catheter in place and his pain is controlled. Patient was last night when he is ready however his abdomen is slightly distended, there is stool and colostomy bag and he is passing gases. Because of his abdominal distention patient was kept on a clear liquid diet. He still have leukocytosis of 15.3 K, sodium 136, glucose is controlled. Vitals are stable and last time he had fever was last evening at 100.1. Infectious disease input is appreciated and he is in agreement with the Zosyn for the patient now. 10/02/2019 Patient is status post Exploratory laparotomy with Sigmoid colectomy with end- colostomy. Today is postoperative day #3. Patient still have the epidural and Solis catheter in place and his pain is controlled. His abdomen is felt to be l ess distended compared to yesterday however it is not completely resolved. He vomited this morning. He did not take his liquid breakfast. Discussed with the staff to make him nothing by mouth, give him Zofran. And will contact surgery for re-evaluation. Other than that he is fully awake and oriented. His abdominal pain is controlled while epidural is in place. He has a Solis catheter with good urine output. He remains on Zosyn and pain management. His WBC is went up to 17.7 K, is been afebrile since yesterday. Blood pressure is stable at 133/84. And he is saturating 95% on 3 L oxygen. Pathology specimen is still pending. Objective - Vital Signs Vital signs: Vital Signs Temp 98.4 F 10/02/19 07:00 Pulse 92 10/02/19 07:00 Resp 17 10/02/19 07:00 BP 133/84 10/02/19 07:00 Pulse Ox 95 10/02/19 07:00 Intake & Output 10/01/19 10/02/19 10/02/19 18:59 06:59 18:59 Intake Total 250 625 Output Total 700 400 Balance -450 225 Weight 108.862 kg Intake: Intake, IV Titration 250 625 Amount Piperacillin-Tazobactam 3 100 .375 gm In Sodium Chloride 0.9% 100 ml @ 25 mls/hr IVPB Q8H [facility] Rx#: [id number] Ropivacaine 250 mg 250 Hydromorphone (Pf) 5 mg In Sodium Chloride 0.9% 200 ml @ Per Protocol EPIDURAL .Q0M [facility] Rx#: [id number] Sodium Chloride 0.9% 1, 525 000 ml @ 75 mls/hr IV . [id number] [facility] Rx#:[id number] Output: Urine 700 400 Other: Voiding Method Indwelling Catheter - Exam GENERAL: The patient is alert and oriented x3, not in any acute distress. Well developed, well nourished. HEENT: Pupils are round and equally reacting to light. EOMI. No scleral icterus. No conjunctival pallor. Normocephalic, atraumatic. No pharyngeal erythema. No thyromegaly. CARDIOVASCULAR: S1 and S2 present. No murmurs, rubs, or gallops. PULMONARY: Chest is clear to auscultation, no wheezing or crackles. -ABDOMEN: Soft, worsening LLQ but more towards the center tenderness, nondistended, normoactive bowel sounds. No palpable organomegaly. MUSCULOSKELETAL: No joint swelling or deformity. EXTREMITIES: No cyanosis, clubbing, or pedal edema. NEUROLOGICAL: Gross neurological examination did not reveal any focal deficits. SKIN: No rashes. No petechiae - Labs CBC & Chem 7: 10/02/19 06:44 10/01/19 06:59 Labs: Abnormal Lab Results - Last 24 Hours (Table) 10/02/19 Range/Units 06:44 WBC 17.7 H (3.8-10.6) k/uL Neutrophils # 16.1 H (1.3-7.7) k/uL Lymphocytes # 0.7 L (1.0-4.8) k/uL Microbiology - Last 24 Hours (Table) 09/28/19 02:02 Blood Culture - Preliminary Blood No Growth after 96 hours Assessment and Plan Assessment: acute diverticulitis, with perforation and pneumoperitoneum. status post Exploratory laparotomy with Sigmoid colectomy with end-colostomy Peridiverticular abscess systemic inflammatory response syndrome was with fever, tachycardia and leukocytosis Sepsis secondary to above hypertension Sleep apnea on CPAP/BiPAP 8 mm left kidney stones nicotine dependence Plan: this is a pleasant 54 years old male who presents with fever and diverticulitis. Continue with antibiotics Zosyn. Continue with surgery team recommendation as well as infectious disease helping with antibiotic and control his infection., continue with bowel rest , continue with IV fluids.pain management. Labs and medication were reviewed.. Continue same treatment. Continue with symptomatic treatment. Resume home medication. Monitor lytes and vitals. DVT and GI prophylaxis. Further recommendations of the clinical course of the patient DVT prophylaxis: Subcutaneous heparin GI Prophylaxis: Pepcid Prognosis is guarded
[2019-10-02] MEDS: FAMOTIDINE 20 MG TAB PO SCH ×2 (09:11→23:57)
[2019-10-02] MEDS: LISINOPRIL 20 MG TAB PO SCH (09:11)
[2019-10-02] MEDS: ALVIMOPAN 12 MG CAPSULE PO SCH ×2 (09:11→23:57)
[2019-10-02] MEDS: amLODIPine 10 MG TAB PO SCH (09:11)
[2019-10-02] MEDS: ARMODAFINIL 50 MG PO SCH (09:19)
[2019-10-02] MEDS: SODIUM CHLORIDE 0.9% 1,000 ML IV SCH (12:13)
--- NOTE | 2019-10-02 13:07 | P.PN ---
Subjective Progress Note Date: 10/02/19 CHIEF COMPLAINT: Perforated diverticulitis HISTORY OF PRESENT ILLNESS: The patient is a 34-year-old male status post colectomy with colostomy for perforated diverticulitis with pneumoperitoneum. His epidural was discontinued. He reports acute nausea and vomiting with abdominal pain and distention this morning. He can empty his own ostomy appliance. I feel nauseated and bloated. ROS: Has reports of nausea and vomiting. Has bowel movements. No fevers or chills. No new chest pain. No productive sputum PHYSICAL EXAM: VITAL SIGNS: Reviewed CONSTITUTIONAL: Well developed and in no acute distress. EYES: Conjuctivae without sclera icterus. Extraocular movements grossly intact. HEAD, EARS, NOSE, THROAT: Moist buccal mucosa. Head is atraumatic, normocephalic. Hears conversational speech. No nasal drainage. RESPIRATORY: Non-labored respirations and equal bilateral excursions. CARDIOVASCULAR: Palpable 2+ radial pulses. Regular rate. Regular rhythm. ABDOMEN: Incisions dry and intact and mild shadowing. Soft. No peritonitis. Has mild abdominal distention, protuberant. Ostomy, pink and patent with air and liquid brown stool MUSCULOSKELETAL: No gross deformity of the lower extremities noted. No clubbing. No cyanosis. SKIN: Good skin turgor. Well perfused. NEUROLOGIC: Cranial nerves I through XII grossly intact. No focal or lateralizing signs. PSYCH: Appropriate affect. Alert and oriented to person, place and time. CLINICAL LABS: White blood cell elevated from over 15 to 17,000. ASSESSMENT: 1. Perforated diverticulitis with pneumoperitoneum 2. Ileus PLAN: 1. Adjustment for pain meds as he has chronic Celebrex use from home 2. NPO except ice chips and popsicles 3. Reglan scheduled. Objective - Vital Signs Vital signs: Vital Signs Temp 98.4 F 10/02/19 07:00 Pulse 92 10/02/19 07:00 Resp 17 10/02/19 07:00 BP 133/84 10/02/19 07:00 Pulse Ox 95 10/02/19 07:00 Intake & Output 10/01/19 10/02/19 10/02/19 18:59 06:59 18:59 Intake Total 250 625 Output Total 700 400 Balance -450 225 Weight 108.862 kg Intake: Intake, IV Titration 250 625 Amount Piperacillin-Tazobactam 3 100 .375 gm In Sodium Chloride 0.9% 100 ml @ 25 mls/hr IVPB Q8H [facility] Rx#: [id number] Ropivacaine 250 mg 250 Hydromorphone (Pf) 5 mg In Sodium Chloride 0.9% 200 ml @ Per Protocol EPIDURAL .Q0M PRN Rx#: [id number] Sodium Chloride 0.9% 1, 525 000 ml @ 75 mls/hr IV . [id number] [facility] Rx#:[id number] Output: Urine 700 400 Other: Voiding Method Indwelling Catheter Indwelling Catheter # Emeses 2 - Labs CBC & Chem 7: 10/02/19 06:44 10/01/19 06:59 Labs: Abnormal Lab Results - Last 24 Hours (Table) 10/02/19 Range/Units 06:44 WBC 17.7 H (3.8-10.6) k/uL Neutrophils # 16.1 H (1.3-7.7) k/uL Lymphocytes # 0.7 L (1.0-4.8) k/uL Microbiology - Last 24 Hours (Table) 09/28/19 02:02 Blood Culture - Preliminary Blood No Growth after 96 hours Assessment and Plan (1) Perforated diverticulum of large intestine Current Visit: Yes Status: Acute Code(s): K57.20 - DVTRCLI OF LG INT W PERFORATION AND ABSCESS W/O BLEEDING SNOMED Code(s): 110078382 (2) Pneumoperitoneum Current Visit: Yes Status: Acute Code(s): K66.8 - OTHER SPECIFIED DISORDERS OF PERITONEUM SNOMED Code(s): 58659835 (3) SIRS (systemic inflammatory response syndrome) Current Visit: Yes Status: Acute Code(s): R65.10 - SIRS OF NON-INFECTIOUS ORIGIN W/O ACUTE ORGAN DYSFUNCTION SNOMED Code(s): 974165604 (4) Morbid obesity due to excess calories Current Visit: Yes Status: Acute Code(s): E66.01 - MORBID (SEVERE) OBESITY DUE TO EXCESS CALORIES SNOMED Code(s): 131599980 (5) BMI 35.0-35.9,adult Current Visit: Yes Status: Acute Code(s): Z68.35 - BODY MASS INDEX (BMI) 35.0-35.9, ADULT SNOMED Code(s): 441173551 (6) Tobacco use disorder Current Visit: Yes Status: Acute Code(s): F17.200 - NICOTINE DEPENDENCE, UNSPECIFIED, UNCOMPLICATED SNOMED Code(s): 957407656 (7) Status post colostomy Current Visit: Yes Status: Acute Code(s): Z93.3 - COLOSTOMY STATUS SNOMED Code(s): 696614867 (8) Sleep apnea Current Visit: Yes Status: Acute Code(s): G47.30 - SLEEP APNEA, UNSPECIFIED SNOMED Code(s): 82843902
[2019-10-02] MEDS ORDERED: ACETAMINOPHEN TAB 325 MG TAB PO PRN (13:09)
[2019-10-02] MEDS: HYDROmorphone 1 MG/ML 1 ML SYRINGE IVP PRN ×2 (13:35→21:50)
[2019-10-02] MEDS: KETOROLAC 30 MG/ML 1 ML VIAL IVP SCH ×2 (13:42→17:47)
[2019-10-02] MEDS: METOCLOPRAMIDE 5 MG/ML 2 ML VIAL IVP SCH ×2 (13:43→17:46)
[2019-10-02] MEDS: FLUCONAZOLE IN NACL,ISO-OSM 200 MG in SALINE 1 100ML.BAG IVPB SCH (16:46)
[2019-10-02] MEDS: GABAPENTIN 300 MG CAP PO SCH ×2 (16:47→23:57)
[2019-10-02] MEDS: ONDANSETRON 4 MG/2 ML VIAL IVP SCH (17:46)
--- NOTE | 2019-10-02 18:29 | PN ---
PROGRESS NOTE DATE OF SERVICE: 10/02/2019 REASON FOR FOLLOWUP: Secondary peritonitis, sigmoid diverticulitis with perforation. INTERVAL COURSE: Patient is currently afebrile. The patient is breathing comfortably. The patient denies having any chest pain or cough. Abdominal pain is currently controlled. No nausea, no vomiting. PHYSICAL EXAMINATION: Blood pressure 131/82 with a pulse of 81, temperature 97.7, he is 95% on 3 L nasal cannula. General description is a middle-aged male lying in bed in no distress. Respiratory system: Unlabored breathing. Clear to auscultation anteriorly. Heart S1, S2. Regular rate and rhythm. ABDOMEN: Soft. Mildly distended. No guarding. No rigidity. LABS: The patient did have elevation of white count 17.7 today. Creatinine 0.85. Blood culture negative. No abdominal cultures were done. DIAGNOSTIC IMPRESSION AND PLAN: Patient with secondary peritonitis from the perforated diverticulitis status post diverting colostomy. The patient now noticed to have worsening of the white count, on Zosyn, will add Diflucan and repeat CBC tomorrow and monitor his clinical course closely. MMODL / IJN: [id number] /
[2019-10-03] MEDS: ONDANSETRON 4 MG/2 ML VIAL IVP SCH ×4 (00:08→17:42)
[2019-10-03] MEDS: KETOROLAC 30 MG/ML 1 ML VIAL IVP SCH ×4 (00:09→17:42)
[2019-10-03] MEDS: METOCLOPRAMIDE 5 MG/ML 2 ML VIAL IVP SCH ×4 (00:09→17:42)
[2019-10-03] MEDS: PIPERACILLIN-TAZOBACTAM 3.375 GM in SODIUM CHLORIDE 0.9% 100 ML IVPB SCH ×3 (04:26→21:23)
[2019-10-03 07:37] LABS: Basophils % (A) 0 %; Eosinophils # (A) 0.3 k/uL (0-0.7); Eosinophils % (A) 2 %; HGB 12.8 gm/dL (13.0-17.5); Lymphocytes # (A) 1.2 k/uL (1.0-4.8); Lymphocytes % (A) 8 %; MCH 29.9 pg (25.0-35.0); MCHC 32.9 g/dL (31.0-37.0); Mean Platelet Volume 7.9; Monocytes % (A) 6 %; Neutrophils # (A) 12.4 k/uL (1.3-7.7); Neutrophils % (A) 82 %; Platelet Count 309 k/uL (150-450); RBC 4.28 m/uL (4.30-5.90); RDW 13.1 % (11.5-15.5); WBC 15.2 k/uL (3.8-10.6)
[2019-10-03] MEDS: FAMOTIDINE 20 MG TAB PO SCH ×2 (09:07→21:56)
[2019-10-03] MEDS: amLODIPine 10 MG TAB PO SCH (09:07)
[2019-10-03] MEDS: LISINOPRIL 20 MG TAB PO SCH (09:07)
[2019-10-03] MEDS: ALVIMOPAN 12 MG CAPSULE PO SCH ×2 (09:07→21:56)
[2019-10-03] MEDS: GABAPENTIN 300 MG CAP PO SCH ×3 (09:07→21:56)
[2019-10-03] MEDS: HEPARIN SODIUM,PORCINE 5,000 UNIT/ML 1 ML VIAL SQ SCH ×2 (09:07→21:56)
[2019-10-03] MEDS: ARMODAFINIL 50 MG PO SCH (09:08)
--- NOTE | 2019-10-03 12:29 | P.PN ---
Subjective this is a pleasant 54 years old male with past medical history of hypertension, sleep apnea on CPAP/BiPAP, kidney stone. Presents with abdominal pain of 2 days' durationof left lower quadrant and more towards the center, nonradiating, was severe about 9-10/10 in severity, come vertically improved with pain medication. Associated with fever of 101 which made the patient more worried so he decided to come to the hospital. However patient denies nausea vomiting, no change in bowel habits. No chest pain or dyspnea. No dizziness.no such episo ramesh in the past On admission patient has fever of 101.8. Melissa Vitas looks stable however his tachycardic of 110-113.labs showed leukocytosis of 20 1.1K. Sodium is 135, creatinine is normal at 1.1, liver enzymes not elevated. Chest x-ray: No acute process as per radiologist.urinalysis is negative. CT of the abdomen and pelvis with contrast: 8 mm left kidney stone, sigmoid colitis.an event. Diverticular abscess on admission patient was given Zosyn was started on Rocephin. He was given IV hydration and pain management. patient was placed nothing by mouth he smokes cigarettes, patient is counseled and he does not want nicotine patch. No alcohol or illicit tracts 09/29/2019 Patient is awake and oriented. No chest pain or dyspnea however he has worsening abdominal pain which was going up. He has intense abdominal pain. CAT scan of the abdomen and pelvis ordered by surgical team are following the patient closely showed possible perforation of diverticulitis with pneumoperitoneum. Patient's schedule and going for surgery today and vitals are stable. Lap showing persistent leukocytosis at 20.8 K. Cali Franson normal. Patient remains on Zosyn and IV fluids with pain medicine 09/30/2019 Patient is status post Exploratory laparotomy with Sigmoid colectomy with end-colostomy. Today is postoperative day #1. Patient complaining of from pain at surgical site as expected. No nausea vomiting. He has sluggish bowel movement. He is passing gases but no stool in the colostomy back. She still running a fever of 100 today. Preoperative consult infectious disease. Epidural catheter is in place. Leukocytosis improving down to 14 K 10/01/2019 Patient is status post Exploratory laparotomy with Sigmoid colectomy with end- colostomy. Today is postoperative day #2. Patient still have the epidural and Solis catheter in place and his pain is controlled. Patient was last night when he is ready however his abdomen is slightly distended, there is stool and colostomy bag and he is passing gases. Because of his abdominal distention patient was kept on a clear liquid diet. He still have leukocytosis of 15.3 K, sodium 136, glucose is controlled. Vitals are stable and last time he had fever was last evening at 100.1. Infectious disease input is appreciated and he is in agreement with the Zosyn for the patient now. 10/02/2019 Patient is status post Exploratory laparotomy with Sigmoid colectomy with end- colostomy. Today is postoperative day #3. Patient still have the epidural and Solis catheter in place and his pain is controlled. His abdomen is felt to be l ess distended compared to yesterday however it is not completely resolved. He vomited this morning. He did not take his liquid breakfast. Discussed with the staff to make him nothing by mouth, give him Zofran. And will contact surgery for re-evaluation. Other than that he is fully awake and oriented. His abdominal pain is controlled while epidural is in place. He has a Solis catheter with good urine output. He remains on Zosyn and pain management. His WBC is went up to 17.7 K, is been afebrile since yesterday. Blood pressure is stable at 133/84. And he is saturating 95% on 3 L oxygen. Pathology specimen is still pending. 10/03/2019 Patient with known new complaints. No nausea vomiting and he kept nothing by mouth. His colostomy bag is with some stool is working. His pain seems control, he has less abdominal distention. Vitas looks stable. WBC is improving gradually to 15.2 K today. Objective - Vital Signs Vital signs: Vital Signs Temp 98.3 F 10/03/19 07:00 Pulse 96 10/03/19 07:00 Resp 17 10/03/19 07:00 BP 151/91 10/03/19 07:00 Pulse Ox 96 10/03/19 07:00 Intake & Output 10/02/19 10/03/19 10/03/19 18:59 06:59 18:59 Intake Total 375 Output Total 150 200 Balance -150 375 -200 Intake: Intake, IV Titration 375 Amount Sodium Chloride 0.9% 1, 375 000 ml @ 75 mls/hr IV . [id number] [facility] Rx#:[id number] Output: Urine 150 Stool 200 Other: Voiding Method Indwelling Catheter # Voids 1 1 # Emeses 2 - Exam GENERAL: The patient is alert and oriented x3, not in any acute distress. Well developed, well nourished. HEENT: Pupils are round and equally reacting to light. EOMI. No scleral icterus. No conjunctival pallor. Normocephalic, atraumatic. No pharyngeal erythema. No thyromegaly. CARDIOVASCULAR: S1 and S2 present. No murmurs, rubs, or gallops. PULMONARY: Chest is clear to auscultation, no wheezing or crackles. -ABDOMEN: Soft, worsening LLQ but more towards the center tenderness, nondistended, normoactive bowel sounds. No palpable organomegaly. MUSCULOSKELETAL: No joint swelling or deformity. EXTREMITIES: No cyanosis, clubbing, or pedal edema. NEUROLOGICAL: Gross neurological examination did not reveal any focal deficits. SKIN: No rashes. No petechiae - Labs CBC & Chem 7: 10/03/19 06:47 10/01/19 06:59 Labs: Abnormal Lab Results - Last 24 Hours (Table) 10/03/19 Range/Units 06:47 WBC 15.2 H (3.8-10.6) k/uL RBC 4.28 L (4.30-5.90) m/uL Hgb 12.8 L (13.0-17.5) gm/dL Neutrophils # 12.4 H (1.3-7.7) k/uL Microbiology - Last 24 Hours (Table) 09/28/19 02:02 Blood Culture - Preliminary Blood No Growth after 120 hours Assessment and Plan Assessment: acute diverticulitis, with perforation and pneumoperitoneum. status post Exploratory laparotomy with Sigmoid colectomy with end-colostomy Peridiverticular abscess systemic inflammatory response syndrome was with fever, tachycardia and leukocytosis Sepsis secondary to above hypertension Sleep apnea on CPAP/BiPAP 8 mm left kidney stones nicotine dependence Plan: this is a pleasant 54 years old male who presents with fever and diverticulitis. Continue with antibiotics Zosyn. Continue with surgery team recommendation as well as infectious disease helping with antibiotic and control his infection., continue with bowel rest , continue with IV fluids.pain management. Labs and medication were reviewed.. Continue same treatment. Continue with symptomatic treatment. Resume home medication. Monitor lytes and vitals. DVT and GI prophylaxis. Further recommendations of the clinical course of the patient DVT prophylaxis: Subcutaneous heparin GI Prophylaxis: Pepcid Prognosis is guarded
--- NOTE | 2019-10-03 13:59 | P.PN ---
Subjective Progress Note Date: 10/03/19 CHIEF COMPLAINT: Perforated diverticulitis HISTORY OF PRESENT ILLNESS: The patient is a 34-year-old male status post colectomy with colostomy for perforated diverticulitis with pneumoperitoneum. Nausea resolved after switching to Toradol. He reports he is ambulating. He has more of an appetite today. ROS: No reports of nausea and vomiting for today. Has bowel movements. No fevers or chills. No new chest pain. No productive sputum PHYSICAL EXAM: VITAL SIGNS: Reviewed CONSTITUTIONAL: Well developed and in no acute distress. EYES: Conjuctivae without sclera icterus. Extraocular movements grossly intact. HEAD, EARS, NOSE, THROAT: Moist buccal mucosa. Head is atraumatic, normocephali c. Hears conversational speech. No nasal drainage. RESPIRATORY: Non-labored respirations and equal bilateral excursions. CARDIOVASCULAR: Palpable 2+ radial pulses. Regular rate. Regular rhythm. ABDOMEN: Incisions intact. Soft. No peritonitis. Decreased distention. Ostomy, pink and patent with liquid stool MUSCULOSKELETAL: No gross deformity of the lower extremities noted. No clubbing. No cyanosis. SKIN: Good skin turgor. Well perfused. NEUROLOGIC: Cranial nerves I through XII grossly intact. No focal or lateralizing signs. PSYCH: Appropriate affect. Alert and oriented to person, place and time. CLINICAL LABS: Pending ASSESSMENT: 1. Perforated diverticulitis with pneumoperitoneum 2. Ileus PLAN: 1. Minimize narcotics for ileus 2. Recommend AXR prior to advance diet. 3. Repeat labs for AM Objective - Vital Signs Vital signs: Vital Signs Temp 98.3 F 10/03/19 07:00 Pulse 96 10/03/19 07:00 Resp 17 10/03/19 07:00 BP 151/91 10/03/19 07:00 Pulse Ox 96 10/03/19 07:00 Intake & Output 10/02/19 10/03/19 10/03/19 18:59 06:59 18:59 Intake Total 375 Output Total 150 200 Balance -150 375 -200 Intake: Intake, IV Titration 375 Amount Sodium Chloride 0.9% 1, 375 000 ml @ 75 mls/hr IV . [id number] Rx#:[id number] Output: Urine 150 Stool 200 Other: Voiding Method Indwelling Catheter # Voids 1 1 # Emeses 2 - Labs CBC & Chem 7: 10/03/19 06:47 10/01/19 06:59 Labs: Abnormal Lab Results - Last 24 Hours (Table) 10/03/19 Range/Units 06:47 WBC 15.2 H (3.8-10.6) k/uL RBC 4.28 L (4.30-5.90) m/uL Hgb 12.8 L (13.0-17.5) gm/dL Neutrophils # 12.4 H (1.3-7.7) k/uL Microbiology - Last 24 Hours (Table) 09/28/19 02:02 Blood Culture - Preliminary Blood No Growth after 120 hours Assessment and Plan (1) Perforated diverticulum of large intestine Current Visit: Yes Status: Acute Code(s): K57.20 - DVTRCLI OF LG INT W PERFORATION AND ABSCESS W/O BLEEDING SNOMED Code(s): 598334901 (2) Pneumoperitoneum Current Visit: Yes Status: Acute Code(s): K66.8 - OTHER SPECIFIED DISORDERS OF PERITONEUM SNOMED Code(s): 07020688 (3) SIRS (systemic inflammatory response syndrome) Current Visit: Yes Status: Acute Code(s): R65.10 - SIRS OF NON-INFECTIOUS ORIGIN W/O ACUTE ORGAN DYSFUNCTION SNOMED Code(s): 592481355 (4) Morbid obesity due to excess calories Current Visit: Yes Status: Acute Code(s): E66.01 - MORBID (SEVERE) OBESITY DUE TO EXCESS CALORIES SNOMED Code(s): 982762524 (5) BMI 35.0-35.9,adult Current Visit: Yes Status: Acute Code(s): Z68.35 - BODY MASS INDEX (BMI) 35.0-35.9, ADULT SNOMED Code(s): 347064985 (6) Tobacco use disorder Current Visit: Yes Status: Acute Code(s): F17.200 - NICOTINE DEPENDENCE, UNSPECIFIED, UNCOMPLICATED SNOMED Code(s): 046083398 (7) Status post colostomy Current Visit: Yes Status: Acute Code(s): Z93.3 - COLOSTOMY STATUS SNOMED Code(s): 261942010 (8) Sleep apnea Current Visit: Yes Status: Acute Code(s): G47.30 - SLEEP APNEA, UNSPECIFIED SNOMED Code(s): 92751950
--- NOTE | 2019-10-03 15:20 | XR ---
EXAMINATION TYPE: XR abdomen 2V DATE OF EXAM: 10/03/2019 COMPARISON: 01/24/2019 HISTORY: Ileus. Colon surgery 5 days ago. TECHNIQUE: Supine and upright views FINDINGS: There are some mildly dilated loops of air and fluid-filled small bowel in the mid abdomen. There are skin donald over the lower abdomen. There is contrast in the rectum. Lung bases are clear . There is colostomy in the left mid abdomen. I see no sign of free air. IMPRESSION: Dilated small bowel suggestive of ileus or partial mechanical obstruction. There is some large bowel gas and ileus is more likely.
[2019-10-03] MEDS: SODIUM CHLORIDE 0.9% 1,000 ML IV SCH ×2 (16:27→17:41)
[2019-10-03] MEDS: FLUCONAZOLE IN NACL,ISO-OSM 200 MG in SALINE 1 100ML.BAG IVPB SCH (16:28)
[2019-10-03] MEDS: HYDROmorphone 1 MG/ML 1 ML SYRINGE IVP PRN ×2 (19:18→21:56)
--- NOTE | 2019-10-03 21:48 | XR ---
EXAMINATION TYPE: XR chest 1V portable DATE OF EXAM: 10/03/2019 COMPARISON: NONE HISTORY: Check tube placement TECHNIQUE: Single view FINDINGS: There is nasogastric tube and the tip is looped in the gastric fundus. Lungs are clear. The re is no heart failure. Heart size is normal. IMPRESSION: NG tube is in good position in the stomach.
--- NOTE | 2019-10-03 23:56 | PN ---
PROGRESS NOTE DATE OF SERVICE: 10/03/2019. REASON FOR FOLLOWUP: Secondary peritonitis from perforated diverticulitis. INTERVAL HISTORY: The patient is currently afebrile. The patient is breathing comfortably. The patient denies having any chest pain or shortness of breath or cough. Abdominal pain has improved. No nausea or vomiting, can be started on some clear liquid diet. PHYSICAL EXAMINATION: Blood pressure 158/94 with a pulse of 80, temperature 98.5. He is 92% on room air. General description is a middle-aged male lying in bed in no distress. Respiratory system: Unlabored breathing. Decreased breath sounds in the bases. No wheeze. Heart S1, S2. Regular rate and rhythm. ABDOMEN: Soft. Mildly distended. No guarding or rigidity. LABS: Hemoglobin is 12.1, white count 15.2. DIAGNOSTIC IMPRESSION AND PLAN: Patient with secondary peritonitis from perforated sigmoid diverticulitis in this patient who did have elevated white count, though has shown a downward trend currently on Zosyn and Diflucan, continue to monitor his clinical course closely. Continue supportive care. MMODL / IJN: [id number] /
[2019-10-04] MEDS: METOCLOPRAMIDE 5 MG/ML 2 ML VIAL IVP SCH ×5 (00:21→23:10)
[2019-10-04] MEDS: KETOROLAC 30 MG/ML 1 ML VIAL IVP SCH ×5 (00:22→23:10)
[2019-10-04] MEDS: ONDANSETRON 4 MG/2 ML VIAL IVP SCH ×5 (00:24→23:10)
[2019-10-04] MEDS: HYDROmorphone 1 MG/ML 1 ML SYRINGE IVP PRN ×2 (01:24→23:38)
[2019-10-04] MEDS: PIPERACILLIN-TAZOBACTAM 3.375 GM in SODIUM CHLORIDE 0.9% 100 ML IVPB SCH ×3 (05:09→20:44)
[2019-10-04 07:48] LABS: African American GFR (CKD) >90 (>60 ml/min/1.73 sqM); Anion Gap 6 mmol/L; Blood Urea Nitrogen 17 mg/dL (9-20); Calcium 8.2 mg/dL (8.4-10.2); Carbon Dioxide 28 mmol/L (22-30); Chloride 107 mmol/L (98-107); Glucose 108 mg/dL (74-99); Magnesium 2.2 mg/dL (1.6-2.3); Non-African American GFR(CKD) >90 (>60 ml/min/1.73 sqM); Potassium 3.6 mmol/L (3.5-5.1); Sodium 141 mmol/L (137-145)
[2019-10-04 07:54] LABS: Basophils # (A) 0.1 k/uL (0-0.2); Basophils % (A) 0 %; Eosinophils # (A) 0.2 k/uL (0-0.7); Eosinophils % (A) 1 %; HCT 38.3 % (39.0-53.0); HGB 12.3 gm/dL (13.0-17.5); Lymphocytes # (A) 1.2 k/uL (1.0-4.8); Lymphocytes % (A) 8 %; MCH 29.3 pg (25.0-35.0); MCHC 32.2 g/dL (31.0-37.0); MCV 90.9 fL (80.0-100.0); Monocytes # (A) 0.9 k/uL (0-1.0); Monocytes % (A) 6 %; Neutrophils # (A) 12.5 k/uL (1.3-7.7); Neutrophils % (A) 81 %; Platelet Count 295 k/uL (150-450); RBC 4.21 m/uL (4.30-5.90); RDW 13.2 % (11.5-15.5); WBC 15.5 k/uL (3.8-10.6)
[2019-10-04] MEDS: HEPARIN SODIUM,PORCINE 5,000 UNIT/ML 1 ML VIAL SQ SCH ×2 (09:44→22:09)
[2019-10-04] MEDS: ARMODAFINIL 50 MG PO SCH (09:44)
[2019-10-04] MEDS: GABAPENTIN 300 MG CAP PO SCH ×3 (09:44→22:09)
[2019-10-04] MEDS: ALVIMOPAN 12 MG CAPSULE PO SCH ×2 (09:44→22:09)
[2019-10-04] MEDS: amLODIPine 10 MG TAB PO SCH (09:44)
[2019-10-04] MEDS: LISINOPRIL 20 MG TAB PO SCH (09:44)
[2019-10-04] MEDS: FAMOTIDINE 20 MG/2 ML VIAL IV SCH ×2 (10:09→22:09)
[2019-10-04] MEDS ORDERED: BENZOCAINE SPRAY 1 CAN MUCOUS MEM PRN (10:28)
--- NOTE | 2019-10-04 10:45 | P.PN ---
<Janet Gonzalez - Last Filed: 10/04/19 10:40> Subjective Progress Note Date: 10/04/19 CHIEF COMPLAINT: Abdominal pain HISTORY OF PRESENT ILLNESS: Patient seen and examined at the bedside. Patient is s/p exploratory laparotomy with sigmoid colectomy and end colostomy. Postop day #5. Patient reports his abdominal pain is tolerable at this time. Ostomy with small amount of stool and flatus noted. NG tube was placed yesterday for ileus with immediate 1L of bilious drainage. So far this morning, patient has approximately 700cc of drainage in the canister. He has been ambulating in the hallways. WBC 15.5. He is afebrile. PHYSICAL EXAM: VITAL SIGNS: Reviewed GENERAL: Well-developed in no acute distress. HEENT: No sclera icterus. Extraocular movements grossly intact. Moist buccal mucosa. Head is atraumatic, normocephalic. Hears conversational speech. No nasal drainage. NECK: Supple without lymphadenopathy. CHEST: Non-labored respirations and equal bilateral excursions. CARDIOVASCULAR: Regular rate with regular rhythm. Palpable 2+ radial pulses. ABDOMEN: NG to LIS. Mildly distended. Ostomy noted with flatus and small amount of stool noted. Dressing to midline incision with shadowing noted. MUSCULOSKELETAL: No clubbing or cyanosis. NEUROLOGIC: No focal or lateralizing signs. Cranial nerves II through XII grossly intact. PSYCH: Appropriate affect. Alert and oriented to person, place and time. SKIN: Well perfused. Good skin turgor. ASSESSMENT: 1. Abdominal pain 2. Acute sigmoid diverticulitis with phlegmon and abscess formation 3. Postoperative ileus PLAN: -Monitor WBC. Continue IV antibiotics. Infectious disease has been consulted. -Continue Reglan and Entereg -NPO except ice chips, popsicles, and medications -Continue NG to LIS. Monitor drainage from NG tube -Begin PPN -Increase activity as tolerated -Incentive spirometry -New optifoam ordered. Change midline dressing today. Nurse practitioner note has been reviewed by physician. Signing provider agrees with the documented findings, assessment, and plan of care. Objective - Vital Signs Vital signs: Vital Signs Temp 98.3 F 10/04/19 07:00 Pulse 109 H 10/04/19 07:00 Resp 18 10/04/19 07:00 BP 162/91 10/04/19 07:00 Pulse Ox 90 L 12/30/19 07:00 Intake & Output 10/03/19 10/04/19 10/04/19 18:59 06:59 18:59 Output Total 458 200 Balance -458 -200 Output: Post Void Residual 258 Stool 200 200 Other: Voiding Method Indwelling Catheter # Voids 1 - Labs CBC & Chem 7: 10/04/19 06:33 10/04/19 06:33 Labs: Abnormal Lab Results - Last 24 Hours (Table) 10/04/19 10/04/19 Range/Units 06:33 06:33 WBC 15.5 H (3.8-10.6) k/uL RBC 4.21 L (4.30-5.90) m/uL Hgb 12.3 L (13.0-17.5) gm/dL Hct 38.3 L (39.0-53.0) % Neutrophils # 12.5 H (1.3-7.7) k/uL Glucose 108 H (74-99) mg/dL Calcium 8.2 L (8.4-10.2) mg/dL Microbiology - Last 24 Hours (Table) 09/28/19 02:02 Blood Culture - Final Blood No Growth after 144 hours <Lucero Liriano N - Last Filed: 10/04/19 18:19> Subjective Patient has expected ileus following sepsis from perforated diverticulitis. Continue bowel rest. Objective - Vital Signs Vital signs: Vital Signs Temp 98.3 F 10/04/19 14:20 Pulse 78 10/04/19 14:20 Resp 17 10/04/19 14:20 BP 168/86 10/04/19 14:20 Pulse Ox 93 L 10/04/19 14:20 Intake & Output 10/03/19 10/04/19 10/04/19 18:59 06:59 18:59 Output Total 458 200 Balance -458 -200 Weight 108.862 kg Output: Post Void Residual 258 Stool 200 200 Other: Voiding Method Indwelling Catheter # Voids 1 1 - Labs CBC & Chem 7: 10/04/19 06:33 10/04/19 06:33 Labs: Abnormal Lab Results - Last 24 Hours (Table) 10/04/19 10/04/19 Range/Units 06:33 06:33 WBC 15.5 H (3.8-10.6) k/uL RBC 4.21 L (4.30-5.90) m/uL Hgb 12.3 L (13.0-17.5) gm/dL Hct 38.3 L (39.0-53.0) % Neutrophils # 12.5 H (1.3-7.7) k/uL Glucose 108 H (74-99) mg/dL Calcium 8.2 L (8.4-10.2) mg/dL Microbiology - Last 24 Hours (Table) 09/28/19 02:02 Blood Culture - Final Blood No Growth after 144 hours Assessment and Plan (1) Perforated diverticulum of large intestine Current Visit: Yes Status: Acute Code(s): K57.20 - DVTRCLI OF LG INT W PERFORATION AND ABSCESS W/O BLEEDING SNOMED Code(s): 164999885 (2) Pneumoperitoneum Current Visit: Yes Status: Acute Code(s): K66.8 - OTHER SPECIFIED DISORDERS OF PERITONEUM SNOMED Code(s): 65086294 (3) SIRS (systemic inflammatory response syndrome) Current Visit: Yes Status: Acute Code(s): R65.10 - SIRS OF NON-INFECTIOUS ORIGIN W/O ACUTE ORGAN DYSFUNCTION SNOMED Code(s): 753722998 (4) Morbid obesity due to excess calories Current Visit: Yes Status: Acute Code(s): E66.01 - MORBID (SEVERE) OBESITY DUE TO EXCESS CALORIES SNOMED Code(s): 908499294 (5) BMI 35.0-35.9,adult Current Visit: Yes Status: Acute Code(s): Z68.35 - BODY MASS INDEX (BMI) 35.0-35.9, ADULT SNOMED Code(s): 335512138 (6) Tobacco use disorder Current Visit: Yes Status: Acute Code(s): F17.200 - NICOTINE DEPENDENCE, UNSPECIFIED, UNCOMPLICATED SNOMED Code(s): 245180203 (7) Status post colostomy Current Visit: Yes Status: Acute Code(s): Z93.3 - COLOSTOMY STATUS SNOMED Code(s): 126511247 (8) Sleep apnea Current Visit: Yes Status: Acute Code(s): G47.30 - SLEEP APNEA, UNSPECIFIED SNOMED Code(s): 00877252
--- NOTE | 2019-10-04 12:07 | CDI ---
Documentation Clarification Form Date: 10/04/2019 11:58:00 AM From: Francine MorenoMalikNICOLETTE trent, CCDS Admit Date: 09/28/2019 03:25:00 AM Patient Name: Yordy uBcio Visit Number: [id number] Discharge Date: ATTENTION: The Clinical Documentation Specialists (CDI) and [facility] Coding Staff appreciate your assistance in clarifying documentation. Please respond to the clarification below the line at the bottom and electronically sign. The CDI & [facility] Coding staff will review the response and follow-up if needed. Please note: Queries are made part of the Legal Health Record. If you have any questions, please contact the author of this message via ITS. Dr. Lucero Liriano: Patient presented with LLQ abdominal pain & fever, diagnosed with Sepsis, Peritonitis from diverticulitis with perforated large intestine & abscess. Per the 10/04 Surgeon progress note: "Postoperative Ileus" is documented. Patients Admitting Diagnosis: as above Post-Operative Diagnosis: same Procedure performed: Exploratory laparotomy. Sigmoid colectomy with end colostomy History/Risk Factors: Kidney stones, Sleep apnea, Hypertension, Smoker. Clinical Indicators: Presented as above. Treatment: Surgery as stated, IV Rocephin, IV Morphine, IV fluid bolus, IV fl rate 150, IV Zosyn, IV Dilaudid, IV Toradol. In order to accurately reflect this patients severity of illness, please clarify if the documented postoperative ileus is the result of the surgical procedure? Yes No Other, please specify Unable to determine (Last Revision: January 2018) Ileus is due to previous sepsis prior to surgery. TOMMIE 10/04/19 18:15 MTDD
[2019-10-04] MEDS: SODIUM CHLORIDE 0.9% 1,000 ML IV SCH (12:40)
[2019-10-04] MEDS ORDERED: MVI, ADULT NO.4 WITH VIT K 10 ML, TRACE (CONC-1ML/DOSE) 1 ML in AMINO ACID 4.25%-D10W+L... IV ONE ×3 (14:00)
--- NOTE | 2019-10-04 14:17 | P.PN ---
Subjective this is a pleasant 54 years old male with past medical history of hypertension, sleep apnea on CPAP/BiPAP, kidney stone. Presents with abdominal pain of 2 days' durationof left lower quadrant and more towards the center, nonradiating, was severe about 9-10/10 in severity, come vertically improved with pain medication. Associated with fever of 101 which made the patient more worried so he decided to come to the hospital. However patient denies nausea vomiting, no change in bowel habits. No chest pain or dyspnea. No dizziness.no such episo ramesh in the past On admission patient has fever of 101.8. Melissa Vitas looks stable however his tachycardic of 110-113.labs showed leukocytosis of 20 1.1K. Sodium is 135, creatinine is normal at 1.1, liver enzymes not elevated. Chest x-ray: No acute process as per radiologist.urinalysis is negative. CT of the abdomen and pelvis with contrast: 8 mm left kidney stone, sigmoid colitis.an event. Diverticular abscess on admission patient was given Zosyn was started on Rocephin. He was given IV hydration and pain management. patient was placed nothing by mouth he smokes cigarettes, patient is counseled and he does not want nicotine patch. No alcohol or illicit tracts 09/29/2019 Patient is awake and oriented. No chest pain or dyspnea however he has worsening abdominal pain which was going up. He has intense abdominal pain. CAT scan of the abdomen and pelvis ordered by surgical team are following the patient closely showed possible perforation of diverticulitis with pneumoperitoneum. Patient's schedule and going for surgery today and vitals are stable. Lap showing persistent leukocytosis at 20.8 K. Cali Franson normal. Patient remains on Zosyn and IV fluids with pain medicine 09/30/2019 Patient is status post Exploratory laparotomy with Sigmoid colectomy with end-colostomy. Today is postoperative day #1. Patient complaining of from pain at surgical site as expected. No nausea vomiting. He has sluggish bowel movement. He is passing gases but no stool in the colostomy back. She still running a fever of 100 today. Preoperative consult infectious disease. Epidural catheter is in place. Leukocytosis improving down to 14 K 10/01/2019 Patient is status post Exploratory laparotomy with Sigmoid colectomy with end- colostomy. Today is postoperative day #2. Patient still have the epidural and Solis catheter in place and his pain is controlled. Patient was last night when he is ready however his abdomen is slightly distended, there is stool and colostomy bag and he is passing gases. Because of his abdominal distention patient was kept on a clear liquid diet. He still have leukocytosis of 15.3 K, sodium 136, glucose is controlled. Vitals are stable and last time he had fever was last evening at 100.1. Infectious disease input is appreciated and he is in agreement with the Zosyn for the patient now. 10/02/2019 Patient is status post Exploratory laparotomy with Sigmoid colectomy with end- colostomy. Today is postoperative day #3. Patient still have the epidural and Solis catheter in place and his pain is controlled. His abdomen is felt to be l ess distended compared to yesterday however it is not completely resolved. He vomited this morning. He did not take his liquid breakfast. Discussed with the staff to make him nothing by mouth, give him Zofran. And will contact surgery for re-evaluation. Other than that he is fully awake and oriented. His abdominal pain is controlled while epidural is in place. He has a Solis catheter with good urine output. He remains on Zosyn and pain management. His WBC is went up to 17.7 K, is been afebrile since yesterday. Blood pressure is stable at 133/84. And he is saturating 95% on 3 L oxygen. Pathology specimen is still pending. 10/03/2019 Patient with known new complaints. No nausea vomiting and he kept nothing by mouth. His colostomy bag is with some stool is working. His pain seems control, he has less abdominal distention. Vitas looks stable. WBC is improving gradually to 15.2 K today. 10/04/2019 Patient has more abdominal distention and has been vomiting for several times, NG tube was placed and more than 2 L of fluid has been aspirated. NG tube is in place and patient feels more comfortable. Hemodynamically stable. WBC is 15.5 K, BMP was unremarkable. Patient continue with Zosyn and ID team on the case. Patient is kept nothing by mouth and surgery team are planning to start PPN for him. Stop IV fluids. Objective - Vital Signs Vital signs: Vital Signs Temp 98.3 F 10/04/19 07:00 Pulse 109 H 10/04/19 07:00 Resp 18 10/04/19 07:00 BP 162/91 10/04/19 07:00 Pulse Ox 90 L 10/04/19 07:00 Intake & Output 10/03/19 10/04/19 10/04/19 18:59 06:59 18:59 Output Total 458 200 Balance -458 -200 Weight 108.862 kg Output: Post Void Residual 258 Stool 200 200 Other: Voiding Method Indwelling Catheter # Voids 1 - Exam GENERAL: The patient is alert and oriented x3, not in any acute distress. Well developed, well nourished. HEENT: Pupils are round and equally reacting to light. EOMI. No scleral icterus. No conjunctival pallor. Normocephalic, atraumatic. No pharyngeal erythema. No thyromegaly. CARDIOVASCULAR: S1 and S2 present. No murmurs, rubs, or gallops. PULMONARY: Chest is clear to auscultation, no wheezing or crackles. -ABDOMEN: Soft, worsening LLQ but more towards the center tenderness, nondistended, normoactive bowel sounds. No palpable organomegaly. MUSCULOSKELETAL: No joint swelling or deformity. EXTREMITIES: No cyanosis, clubbing, or pedal edema. NEUROLOGICAL: Gross neurological examination did not reveal any focal deficits. SKIN: No rashes. No petechiae - Labs CBC & Chem 7: 10/04/19 06:33 10/04/19 06:33 Labs: Abnormal Lab Results - Last 24 Hours (Table) 10/04/19 10/04/19 Range/Units 06:33 06:33 WBC 15.5 H (3.8-10.6) k/uL RBC 4.21 L (4.30-5.90) m/uL Hgb 12.3 L (13.0-17.5) gm/dL Hct 38.3 L (39.0-53.0) % Neutrophils # 12.5 H (1.3-7.7) k/uL Glucose 108 H (74-99) mg/dL Calcium 8.2 L (8.4-10.2) mg/dL Microbiology - Last 24 Hours (Table) 09/28/19 02:02 Blood Culture - Final Blood No Growth after 144 hours Assessment and Plan Assessment: acute diverticulitis, with perforation and pneumoperitoneum. status post Exploratory laparotomy with Sigmoid colectomy with end-colostomy Peridiverticular abscess systemic inflammatory response syndrome was with fever, tachycardia and leukocytosis Sepsis secondary to above hypertension Sleep apnea on CPAP/BiPAP 8 mm left kidney stones nicotine dependence Plan: this is a pleasant 54 years old male who presents with fever and diverticulitis. Continue with antibiotics Zosyn. Continue with surgery team recommendation as well as infectious disease helping with antibiotic and control his infection., continue with bowel rest , continue with IV fluids.pain management. Labs and medication were reviewed.. Continue same treatment. Continue with symptomatic treatment. Resume home medication. Monitor lytes and vitals. DVT and GI prophylaxis. Further recommendations of the clinical course of the patient DVT prophylaxis: Subcutaneous heparin GI Prophylaxis: Pepcid Prognosis is guarded
[2019-10-04] MEDS: FAT EMULSION 20% 250 ML IV SCH (18:16)
[2019-10-04] MEDS: FLUCONAZOLE IN NACL,ISO-OSM 200 MG in SALINE 1 100ML.BAG IVPB SCH (18:19)
[2019-10-04] MEDS ORDERED: MENTHOL-ZINC OXIDE OINT 113 GM TUBE TOPICAL PRN (19:21)
[2019-10-04] MEDS: FAMOTIDINE 20 MG TAB PO SCH (19:33)
[2019-10-04] MEDS: MENTHOL-ZINC OXIDE OINT 113 GM TUBE TOPICAL SCH (20:45)
--- NOTE | 2019-10-04 22:38 | PN ---
PROGRESS NOTE DATE OF SERVICE: 10/04/2019 REASON FOR FOLLOWUP: Secondary peritonitis from ruptured diverticulitis. INTERVAL HISTORY: The patient is currently afebrile. The patient seemed to have a problem with vomiting yesterday. An NG has been inserted. Currently with no further vomiting. No chest pain. No shortness of breath or cough. Abdominal pain is currently controlled. PHYSICAL EXAMINATION: Blood pressure 135/95 with a pulse of 73, temperature 97.5. He is 95% on room air. General description is a middle-aged male lying in bed in no distress. Respiratory system: Unlabored breathing, clear to auscultation anteriorly. Heart S1, S2. Regular rate and rhythm. ABDOMEN: Soft, no tenderness. LABS: Hemoglobin is 12.1, white count 15.5. DIAGNOSTIC IMPRESSION AND PLAN: Patient with secondary peritonitis from perforated sigmoid diverticulitis status post diverting colostomy in this patient with evidence of ileus status post . The patient is covered with Zosyn and Diflucan to continue. We will monitor clinical course closely. MMODL / IJN: [id number] /
[2019-10-04 23:55] LABS: Glucose,Whole Blood 116 mg/dL (75-99)
[2019-10-05] MEDS: PIPERACILLIN-TAZOBACTAM 3.375 GM in SODIUM CHLORIDE 0.9% 100 ML IVPB SCH ×3 (03:04→22:12)
[2019-10-05] MEDS: ONDANSETRON 4 MG/2 ML VIAL IVP SCH ×3 (05:12→17:53)
[2019-10-05] MEDS: KETOROLAC 30 MG/ML 1 ML VIAL IVP SCH ×3 (05:12→17:50)
[2019-10-05] MEDS: METOCLOPRAMIDE 5 MG/ML 2 ML VIAL IVP SCH ×3 (05:12→17:51)
[2019-10-05 06:46] LABS: Glucose,Whole Blood 128 mg/dL (75-99)
[2019-10-05] MEDS: 1: MVI, ADULT NO.4 WITH VIT K 10 ML, TRACE (CONC-1ML/DOSE) 1 ML in AMINO ACID 4.25%-D10W IV SCH ×6 (07:28→16:29)
[2019-10-05] MEDS: LISINOPRIL 20 MG TAB PO SCH (07:34)
[2019-10-05] MEDS: ALVIMOPAN 12 MG CAPSULE PO SCH ×2 (07:34→22:11)
[2019-10-05] MEDS: amLODIPine 10 MG TAB PO SCH (07:34)
[2019-10-05] MEDS: FAMOTIDINE 20 MG/2 ML VIAL IV SCH (07:35)
[2019-10-05] MEDS: HEPARIN SODIUM,PORCINE 5,000 UNIT/ML 1 ML VIAL SQ SCH ×2 (07:35→22:12)
[2019-10-05] MEDS: MENTHOL-ZINC OXIDE OINT 113 GM TUBE TOPICAL SCH (07:35)
[2019-10-05] MEDS: GABAPENTIN 300 MG CAP PO SCH ×3 (07:35→22:11)
[2019-10-05] MEDS: ARMODAFINIL 50 MG PO SCH (07:43)
[2019-10-05 07:51] LABS: Ionized Calcium 4.9 mg/dL (4.5-5.3)
[2019-10-05 07:58] LABS: African American GFR (CKD) >90 (>60 ml/min/1.73 sqM); Anion Gap 5 mmol/L; Blood Urea Nitrogen 16 mg/dL (9-20); Calcium 8.2 mg/dL (8.4-10.2); Carbon Dioxide 31 mmol/L (22-30); Chloride 105 mmol/L (98-107); Glucose 126 mg/dL (74-99); Magnesium 2.1 mg/dL (1.6-2.3); Non-African American GFR(CKD) >90 (>60 ml/min/1.73 sqM); Phosphorus 4.1 mg/dL (2.5-4.5); Potassium 3.5 mmol/L (3.5-5.1); Sodium 141 mmol/L (137-145); Triglycerides 345 mg/dL (<150)
--- NOTE | 2019-10-05 10:31 | P.PN ---
<Janet Gonzalez - Last Filed: 10/05/19 10:29> Subjective Progress Note Date: 10/05/19 CHIEF COMPLAINT: Abdominal pain HISTORY OF PRESENT ILLNESS: Patient seen and examined at the bedside. Patient is s/p exploratory laparotomy with sigmoid colectomy and end colostomy. Postop day #6. Patient reports his abdominal pain is tolerable at this time. Ostomy with small amount of stool and flatus noted. NG tube with 1150cc overnight and 400cc this morning. Patient has been eating ice chips and popsicles. He denies abdominal pain. Denies nausea and vomiting. He is anxious to have NG tube removed. PHYSICAL EXAM: VITAL SIGNS: Reviewed GENERAL: Well-developed in no acute distress. HEENT: No sclera icterus. Extraocular movements grossly intact. Moist buccal mucosa. Head is atraumatic, normocephalic. Hears conversational speech. No nasal drainage. NECK: Supple without lymphadenopathy. CHEST: Non-labored respirations and equal bilateral excursions. CARDIOVASCULAR: Regular rate with regular rhythm. Palpable 2+ radial pulses. ABDOMEN: NG to LIS. Mildly distended. Ostomy noted with flatus and small amount of stool noted. Dressing to midline incision with shadowing noted. MUSCULOSKELETAL: No clubbing or cyanosis. NEUROLOGIC: No focal or lateralizing signs. Cranial nerves II through XII grossly intact. PSYCH: Appropriate affect. Alert and oriented to person, place and time. SKIN: Well perfused. Good skin turgor. ASSESSMENT: 1. Abdominal pain 2. Acute sigmoid diverticulitis with phlegmon and abscess formation 3. Postoperative ileus PLAN: -Monitor WBC. Continue IV antibiotics. Infectious disease has been consulted. -Continue Reglan and Entereg -Clamp NG tube -Begin clear liquid diet -If patient has increased abdominal pain or nausea, resume NG to suction. If patient tolerates NG being clamp, will consider removing NG tube tomorrow morning -Continue PPN -Increase activity as tolerated -Incentive spirometry -Latisha removed from midline incision. New optifoam dressing ordered. Nurse practitioner note has been reviewed by physician. Signing provider agrees with the documented findings, assessment, and plan of care. Objective - Vital Signs Vital signs: Vital Signs Temp 98.2 F 10/05/19 07:00 Pulse 80 10/05/19 07:00 Resp 16 10/05/19 07:00 BP 164/97 10/05/19 07:00 Pulse Ox 91 L 10/05/19 07:00 Intake & Output 10/04/19 10/05/19 10/05/19 18:59 06:59 18:59 Intake Total 2110 Output Total 1154 Balance 956 Weight 108.862 kg Intake: Intake, IV Titration 1750 Amount Amino Acid 4.25%-D10w+ 600 Lytes*E* 1,000 ml @ 100 mls/hr IV .BY DURATION [facility] Rx#:[id number] Fat Emulsion 20% 250 ml @ 300 20.833 mls/hr IV DAILY@ 1400 [facility] Rx#:[id number] Fluconazole in NaCl,Iso- 100 Osm 200 mg In Saline 1 100ml.bag @ 100 mls/hr IVPB Q24H [facility] Rx#: [id number] Mvi, Adult No.4 with Vit 150 K 10 ml Trace (Conc-1Ml/ Dose) 1 ml In Amino Acid 4.25%-D10w+Lytes*E* 1,000 ml @ 50 mls/hr IV . [id number] [facility] Rx#:[id number] Piperacillin-Tazobactam 3 200 .375 gm In Sodium Chloride 0.9% 100 ml @ 25 mls/hr IVPB Q8H [facility] Rx#: [id number] Sodium Chloride 0.9% 1, 400 000 ml @ 100 mls/hr IV . Q10H [facility] Rx#:[id number] Oral 360 Output: Gastric Drainage 1150 Urine 4 Other: Voiding Method Toilet # Voids 1 - Labs CBC & Chem 7: 10/04/19 06:33 10/05/19 07:06 Labs: Abnormal Lab Results - Last 24 Hours (Table) 10/04/19 10/05/19 10/05/19 Range/Units 23:53 06:44 07:06 Carbon Dioxide 31 H (22-30) mmol/L Glucose 126 H (74-99) mg/dL POC Glucose (mg/dL) 116 H 128 H (75-99) mg/dL Calcium 8.2 L (8.4-10.2) mg/dL Triglycerides 345 H (<150) mg/dL Microbiology - Last 24 Hours (Table) 09/28/19 02:02 Blood Culture - Final Blood No Growth after 144 hours <Lucero Liriano - Last Filed: 10/06/19 12:04> Subjective As above, ileus slowly resolving. Repeat abdominal x-ray tomorrow Objective - Vital Signs Vital signs: Vital Signs Temp 97.5 F L 10/06/19 07:00 Pulse 83 10/06/19 07:00 Resp 12 10/06/19 07:00 BP 142/93 10/06/19 07:00 Pulse Ox 94 L 10/06/19 07:00 Intake & Output 10/05/19 10/06/19 10/06/19 18:59 06:59 18:59 Intake Total 908.333 800 Balance 908.333 800 Intake: Intake, IV Titration 908.333 800 Amount Amino Acid 4.25%-D10w+ 908.333 Lytes*E* 1,000 ml @ 100 mls/hr IV .BY D[facility] Rx#:[id number] Mvi, Adult No.4 with Vit 800 K 10 ml Trace (Conc-1Ml/ Dose) 1 ml Potassium Chloride 20 meq In Amino Acid 4.25%-D10w+Lytes*E* 1,000 ml @ 100 mls/hr IV .BY D[facility]ATION [facility] Rx#: [id number] Other: Voiding Method Toilet Toilet # Voids 3 - Labs CBC & Chem 7: 10/06/19 06:10 10/06/19 06:10 Labs: Abnormal Lab Results - Last 24 Hours (Table) 10/06/19 10/06/19 10/06/19 Range/Units 00:58 06:10 06:10 WBC 15.1 H (3.8-10.6) k/uL RBC 4.12 L (4.30-5.90) m/uL Hgb 12.3 L (13.0-17.5) gm/dL Hct 37.1 L (39.0-53.0) % Neutrophils # 12.3 H (1.3-7.7) k/uL Carbon Dioxide 31 H (22-30) mmol/L Glucose 132 H (74-99) mg/dL POC Glucose (mg/dL) 119 H (75-99) mg/dL Calcium 8.2 L (8.4-10.2) mg/dL 10/06/19 10/06/19 Range/Units 07:03 11:57 WBC (3.8-10.6) k/uL RBC (4.30-5.90) m/uL Hgb (13.0-17.5) gm/dL Hct (39.0-53.0) % Neutrophils # (1.3-7.7) k/uL Carbon Dioxide (22-30) mmol/L Glucose (74-99) mg/dL POC Glucose (mg/dL) 150 H 120 H (75-99) mg/dL Calcium (8.4-10.2) mg/dL Assessment and Plan (1) Perforated diverticulum of large intestine Current Visit: Yes Status: Acute Code(s): K57.20 - DVTRCLI OF LG INT W PERFORATION AND ABSCESS W/O BLEEDING SNOMED Code(s): 289296985 (2) Pneumoperitoneum Current Visit: Yes Status: Acute Code(s): K66.8 - OTHER SPECIFIED DISORDERS OF PERITONEUM SNOMED Code(s): 00533156 (3) SIRS (systemic inflammatory response syndrome) Current Visit: Yes Status: Acute Code(s): R65.10 - SIRS OF NON-INFECTIOUS ORIGIN W/O ACUTE ORGAN DYSFUNCTION SNOMED Code(s): 761103960 (4) Morbid obesity due to excess calories Current Visit: Yes Status: Acute Code(s): E66.01 - MORBID (SEVERE) OBESITY DUE TO EXCESS CALORIES SNOMED Code(s): 696833111 (5) BMI 35.0-35.9,adult Current Visit: Yes Status: Acute Code(s): Z68.35 - BODY MASS INDEX (BMI) 35.0-35.9, ADULT SNOMED Code(s): 058775832 (6) Tobacco use disorder Current Visit: Yes Status: Acute Code(s): F17.200 - NICOTINE DEPENDENCE, UNSPECIFIED, UNCOMPLICATED SNOMED Code(s): 767738324 (7) Status post colostomy Current Visit: Yes Status: Acute Code(s): Z93.3 - COLOSTOMY STATUS SNOMED Code(s): 939802072 (8) Sleep apnea Current Visit: Yes Status: Acute Code(s): G47.30 - SLEEP APNEA, UNSPECIFIED SNOMED Code(s): 22533275
[2019-10-05] MEDS: POTASSIUM CHLORIDE ER 20 MEQ TAB.ER PO SCH ×2 (10:55→11:52)
[2019-10-05 11:51] LABS: Glucose,Whole Blood 146 mg/dL (75-99)
--- NOTE | 2019-10-05 13:43 | P.PN ---
Subjective this is a pleasant 54 years old male with past medical history of hypertension, sleep apnea on CPAP/BiPAP, kidney stone. Presents with abdominal pain of 2 days' durationof left lower quadrant and more towards the center, nonradiating, was severe about 9-10/10 in severity, come vertically improved with pain medication. Associated with fever of 101 which made the patient more worried so he decided to come to the hospital. However patient denies nausea vomiting, no change in bowel habits. No chest pain or dyspnea. No dizziness.no such episo ramesh in the past On admission patient has fever of 101.8. Melissa Vitas looks stable however his tachycardic of 110-113.labs showed leukocytosis of 20 1.1K. Sodium is 135, creatinine is normal at 1.1, liver enzymes not elevated. Chest x-ray: No acute process as per radiologist.urinalysis is negative. CT of the abdomen and pelvis with contrast: 8 mm left kidney stone, sigmoid colitis.an event. Diverticular abscess on admission patient was given Zosyn was started on Rocephin. He was given IV hydration and pain management. patient was placed nothing by mouth he smokes cigarettes, patient is counseled and he does not want nicotine patch. No alcohol or illicit tracts 09/29/2019 Patient is awake and oriented. No chest pain or dyspnea however he has worsening abdominal pain which was going up. He has intense abdominal pain. CAT scan of the abdomen and pelvis ordered by surgical team are following the patient closely showed possible perforation of diverticulitis with pneumoperitoneum. Patient's schedule and going for surgery today and vitals are stable. Lap showing persistent leukocytosis at 20.8 K. Cali Franson normal. Patient remains on Zosyn and IV fluids with pain medicine 09/30/2019 Patient is status post Exploratory laparotomy with Sigmoid colectomy with end-colostomy. Today is postoperative day #1. Patient complaining of from pain at surgical site as expected. No nausea vomiting. He has sluggish bowel movement. He is passing gases but no stool in the colostomy back. She still running a fever of 100 today. Preoperative consult infectious disease. Epidural catheter is in place. Leukocytosis improving down to 14 K 10/01/2019 Patient is status post Exploratory laparotomy with Sigmoid colectomy with end- colostomy. Today is postoperative day #2. Patient still have the epidural and Solis catheter in place and his pain is controlled. Patient was last night when he is ready however his abdomen is slightly distended, there is stool and colostomy bag and he is passing gases. Because of his abdominal distention patient was kept on a clear liquid diet. He still have leukocytosis of 15.3 K, sodium 136, glucose is controlled. Vitals are stable and last time he had fever was last evening at 100.1. Infectious disease input is appreciated and he is in agreement with the Zosyn for the patient now. 10/02/2019 Patient is status post Exploratory laparotomy with Sigmoid colectomy with end- colostomy. Today is postoperative day #3. Patient still have the epidural and Solis catheter in place and his pain is controlled. His abdomen is felt to be l ess distended compared to yesterday however it is not completely resolved. He vomited this morning. He did not take his liquid breakfast. Discussed with the staff to make him nothing by mouth, give him Zofran. And will contact surgery for re-evaluation. Other than that he is fully awake and oriented. His abdominal pain is controlled while epidural is in place. He has a Solis catheter with good urine output. He remains on Zosyn and pain management. His WBC is went up to 17.7 K, is been afebrile since yesterday. Blood pressure is stable at 133/84. And he is saturating 95% on 3 L oxygen. Pathology specimen is still pending. 10/03/2019 Patient with known new complaints. No nausea vomiting and he kept nothing by mouth. His colostomy bag is with some stool is working. His pain seems control, he has less abdominal distention. Vitas looks stable. WBC is improving gradually to 15.2 K today. 10/04/2019 Patient has more abdominal distention and has been vomiting for several times, NG tube was placed and more than 2 L of fluid has been aspirated. NG tube is in place and patient feels more comfortable. Hemodynamically stable. WBC is 15.5 K, BMP was unremarkable. Patient continue with Zosyn and ID team on the case. Patient is kept nothing by mouth and surgery team are planning to start PPN for him. Stop IV fluids. 10/05/2019 Patient feels better today, his NG tube has been clamped and he was started on liquid diet. No abdominal pain and abdominal distention is significantly less. Colostomy back with no stool in it but passing gases. Vitals and labs are stable Objective - Vital Signs Vital signs: Vital Signs Temp 98.2 F 10/05/19 07:00 Pulse 80 10/05/19 07:00 Resp 16 10/05/19 08:00 BP 164/97 10/05/19 07:00 Pulse Ox 91 L 10/05/19 07:00 Intake & Output 10/04/19 10/05/19 10/05/19 18:59 06:59 18:59 Intake Total 2110 Output Total 1154 Balance 956 Weight 108.862 kg Intake: Intake, IV Titration 1750 Amount Amino Acid 4.25%-D10w+ 600 Lytes*E* 1,000 ml @ 100 mls/hr IV .BY DURATION [facility] Rx#:[id number] Fat Emulsion 20% 250 ml @ 300 20.833 mls/hr IV DAILY@ 1400 SHAWN Rx#:[id number] Fluconazole in NaCl,Iso- 100 Osm 200 mg In Saline 1 100ml.bag @ 100 mls/hr IVPB Q24H [facility] Rx#: [id number] Mvi, Adult No.4 with Vit 150 K 10 ml Trace (Conc-1Ml/ Dose) 1 ml In Amino Acid 4.25%-D10w+Lytes*E* 1,000 ml @ 50 mls/hr IV . [id number] [facility] Rx#:[id number] Piperacillin-Tazobactam 3 200 .375 gm In Sodium Chloride 0.9% 100 ml @ 25 mls/hr IVPB Q8H [facility] Rx#: [id number] Sodium Chloride 0.9% 1, 400 000 ml @ 100 mls/hr IV . Q10H [facility] Rx#:[id number] Oral 360 Output: Gastric Drainage 1150 Urine 4 Other: Voiding Method Toilet Toilet # Voids 1 - Exam GENERAL: The patient is alert and oriented x3, not in any acute distress. Well developed, well nourished. HEENT: Pupils are round and equally reacting to light. EOMI. No scleral icterus. No conjunctival pallor. Normocephalic, atraumatic. No pharyngeal erythema. No thyromegaly. CARDIOVASCULAR: S1 and S2 present. No murmurs, rubs, or gallops. PULMONARY: Chest is clear to auscultation, no wheezing or crackles. -ABDOMEN: Soft, worsening LLQ but more towards the center tenderness, nondistended, normoactive bowel sounds. No palpable organomegaly. MUSCULOSKELETAL: No joint swelling or deformity. EXTREMITIES: No cyanosis, clubbing, or pedal edema. NEUROLOGICAL: Gross neurological examination did not reveal any focal deficits. SKIN: No rashes. No petechiae - Labs CBC & Chem 7: 10/04/19 06:33 10/05/19 07:06 Labs: Abnormal Lab Results - Last 24 Hours (Table) 10/04/19 10/05/19 10/05/19 Range/Units 23:53 06:44 07:06 Carbon Dioxide 31 H (22-30) mmol/L Glucose 126 H (74-99) mg/dL POC Glucose (mg/dL) 116 H 128 H (75-99) mg/dL Calcium 8.2 L (8.4-10.2) mg/dL Triglycerides 345 H (<150) mg/dL 10/05/19 Range/Units 11:51 Carbon Dioxide (22-30) mmol/L Glucose (74-99) mg/dL POC Glucose (mg/dL) 146 H (75-99) mg/dL Calcium (8.4-10.2) mg/dL Triglycerides (<150) mg/dL Assessment and Plan Assessment: acute diverticulitis, with perforation and pneumoperitoneum. status post Exploratory laparotomy with Sigmoid colectomy with end-colostomy Peridiverticular abscess systemic inflammatory response syndrome was with fever, tachycardia and l eukocytosis Sepsis secondary to above hypertension Sleep apnea on CPAP/BiPAP 8 mm left kidney stones nicotine dependence Plan: this is a pleasant 54 years old male who presents with fever and diverticulitis. Continue with antibiotics Zosyn. Continue with surgery team recommendation as well as infectious disease helping with antibiotic and control his infection., continue with bowel rest , continue with IV fluids.pain management. Labs and medication were reviewed.. Continue same treatment. Continue with symptomatic treatment. Resume home medication. Monitor lytes and vitals. DVT and GI prophylaxis. Further recommendations of the clinical course of the p atient DVT prophylaxis: Subcutaneous heparin GI Prophylaxis: Pepcid Prognosis is guarded
[2019-10-05] MEDS: FAT EMULSION 20% 250 ML IV SCH (15:02)
[2019-10-05] MEDS: 1: MVI, ADULT NO.4 WITH VIT K 10 ML, TRACE (CONC-1ML/DOSE) 1 ML, POTASSIUM CHLORIDE 20 M IV SCH ×4 (16:29)
[2019-10-05] MEDS ORDERED: BENZOCAINE/MENTHOL LOZENG 1 EACH LOZENGE MUCOUS MEM PRN (17:39)
[2019-10-05] MEDS: FLUCONAZOLE IN NACL,ISO-OSM 200 MG in SALINE 1 100ML.BAG IVPB SCH (17:55)
[2019-10-05] MEDS: FAMOTIDINE 20 MG TAB PO SCH (22:11)
--- NOTE | 2019-10-05 23:36 | PN ---
PROGRESS NOTE DATE OF SERVICE: 10/05/2019. REASON FOR FOLLOWUP: Secondary peritonitis from a perforated diverticulitis. INTERVAL HISTORY: The patient is currently afebrile. Patient has been breathing comfortably. The patient denies having any chest pain, shortness of breath or cough. Abdominal pain has improved. No further nausea or vomiting. PHYSICAL EXAMINATION: Blood pressure 151/94 with pulse of 76, temperature 98.2. He is 95% on room air. General description is a middle-aged male lying in bed in no distress. Respiratory system: Unlabored breathing. Clear to auscultation anteriorly. Heart S1, S2. Regular rate and rhythm. Abdomen soft, no tenderness. LABS: Creatinine 0.91. CBC was not done today. DIAGNOSTIC IMPRESSION AND PLAN: Patient with an abdominal abscess from a perforated diverticulitis status post laparotomy and diverting colostomy. The patient is currently covered on Zosyn and Diflucan to continue. We will monitor his clinical course closely. Continue supportive care. MMODL / IJN: [id number] /
[2019-10-06 01:00] LABS: Glucose,Whole Blood 119 mg/dL (75-99)
[2019-10-06] MEDS: ONDANSETRON 4 MG/2 ML VIAL IVP SCH ×4 (01:00→17:55)
[2019-10-06] MEDS: KETOROLAC 30 MG/ML 1 ML VIAL IVP SCH ×3 (01:01→13:29)
[2019-10-06] MEDS: METOCLOPRAMIDE 5 MG/ML 2 ML VIAL IVP SCH ×4 (01:01→18:54)
[2019-10-06] MEDS: HYDROmorphone 1 MG/ML 1 ML SYRINGE IVP PRN (03:40)
[2019-10-06] MEDS: 1: MVI, ADULT NO.4 WITH VIT K 10 ML, TRACE (CONC-1ML/DOSE) 1 ML, POTASSIUM CHLORIDE 20 M IV SCH ×8 (04:22→16:25)
[2019-10-06] MEDS: PIPERACILLIN-TAZOBACTAM 3.375 GM in SODIUM CHLORIDE 0.9% 100 ML IVPB SCH ×3 (04:27→20:03)
[2019-10-06 07:15] LABS: Glucose,Whole Blood 150 mg/dL (75-99)
[2019-10-06 07:23] LABS: Basophils % (A) 0 %; Eosinophils # (A) 0.3 k/uL (0-0.7); Eosinophils % (A) 2 %; HCT 37.1 % (39.0-53.0); HGB 12.3 gm/dL (13.0-17.5); Lymphocytes # (A) 1.5 k/uL (1.0-4.8); Lymphocytes % (A) 10 %; MCH 29.8 pg (25.0-35.0); MCHC 33.1 g/dL (31.0-37.0); MCV 89.9 fL (80.0-100.0); Monocytes # (A) 0.5 k/uL (0-1.0); Monocytes % (A) 4 %; Neutrophils # (A) 12.3 k/uL (1.3-7.7); Neutrophils % (A) 81 %; Platelet Count 327 k/uL (150-450); RBC 4.12 m/uL (4.30-5.90); RDW 13.2 % (11.5-15.5); WBC 15.1 k/uL (3.8-10.6)
[2019-10-06 07:37] LABS: African American GFR (CKD) >90 (>60 ml/min/1.73 sqM); Anion Gap 5 mmol/L; Blood Urea Nitrogen 11 mg/dL (9-20); Calcium 8.2 mg/dL (8.4-10.2); Carbon Dioxide 31 mmol/L (22-30); Chloride 103 mmol/L (98-107); Glucose 132 mg/dL (74-99); Magnesium 2.1 mg/dL (1.6-2.3); Non-African American GFR(CKD) >90 (>60 ml/min/1.73 sqM); Potassium 3.9 mmol/L (3.5-5.1); Sodium 139 mmol/L (137-145)
[2019-10-06] MEDS: ALVIMOPAN 12 MG CAPSULE PO SCH ×2 (10:35→21:56)
[2019-10-06] MEDS: HEPARIN SODIUM,PORCINE 5,000 UNIT/ML 1 ML VIAL SQ SCH ×2 (10:35→21:56)
[2019-10-06] MEDS: MENTHOL-ZINC OXIDE OINT 113 GM TUBE TOPICAL SCH (10:35)
[2019-10-06] MEDS: amLODIPine 10 MG TAB PO SCH (10:35)
[2019-10-06] MEDS: GABAPENTIN 300 MG CAP PO SCH ×3 (10:35→21:58)
[2019-10-06] MEDS: ARMODAFINIL 50 MG PO SCH (10:35)
[2019-10-06] MEDS: FAMOTIDINE 20 MG TAB PO SCH ×2 (10:35→21:56)
[2019-10-06] MEDS: LISINOPRIL 20 MG TAB PO SCH (10:35)
[2019-10-06 11:59] LABS: Glucose,Whole Blood 120 mg/dL (75-99)
--- NOTE | 2019-10-06 12:36 | XR ---
EXAMINATION TYPE: XR abdomen 2V DATE OF EXAM: 10/06/2019 12:29 PM CLINICAL HISTORY: Ileus. Abdominal pain. Endotracheal tube placement. TECHNIQUE: Supine and upright images of the abdomen were obtained. COMPARISON: 10/03/2019. FINDINGS: Dilated large and small bowel are redemonstrated with differential air-fluid levels. Enteri c tube has been inserted with its measure portion beyond the gastroesophageal junction. The enteric t ube is coiled in the region of the gastric body and fundus. Lung bases are well aerated. Contrast is seen within the rectum. Surgical donald are noted in the midline abdomen and pelvis. Left-sided colo stomy. IMPRESSION: 1. Insertion of an enteric tube, appropriately placed. 2. Redemonstration of dilated loops of large and small bowel. Given the surgical donald and presence of oral contrast in the rectum, findings could relate to postoperative ileus.
[2019-10-06] MEDS: FAT EMULSION 20% 250 ML IV SCH (13:27)
--- NOTE | 2019-10-06 13:48 | P.PN ---
Subjective Progress Note Date: 10/06/19 CHIEF COMPLAINT: Perforated diverticulitis HISTORY OF PRESENT ILLNESS: The patient is a 34-year-old male status post colectomy with colostomy for perforated diverticulitis with pneumoperitoneum. He had ileus requiring placement of nasogastric tube. He's had moderate outputs of over 6731-0483 daily. Abdominal pain has significantly improved. He is ambulating more at least 10+ laps daily. His mother is at bedside. "I feel great!" He has been clamped over 24hrs without nausea or vomiting. He reports stools have gone from liquid to semi-solid. ROS: No reports of nausea and vomiting for today. Has bowel movements. No fevers or chills. No new chest pain. No productive sputum PHYSICAL EXAM: VITAL SIGNS: Reviewed CONSTITUTIONAL: Well developed and in no acute distress. EYES: Conjuctivae without sclera icterus. Extraocular movements grossly intact. HEAD, EARS, NOSE, THROAT: Moist buccal mucosa. Head is atraumatic, normocephalic. Hears conversational speech. No nasal drainage. RESPIRATORY: Non-labored respirations and equal bilateral excursions. CARDIOVASCULAR: Palpable 2+ radial pulses. Regular rate. Regular rhythm. ABDOMEN: Dressing clean and dry. Latisha removed. Seropurulent drainage from midline. Ostomy, pink and patent with semisolid stool MUSCULOSKELETAL: No gross deformity of the lower extremities noted. No clubbing. No cyanosis. SKIN: Good skin turgor. Well perfused. NEUROLOGIC: Cranial nerves I through XII grossly intact. No focal or lateralizing signs. PSYCH: Appropriate affect. Alert and oriented to person, place and time. CLINICAL LABS: WBC stable at 15,000. STUDIES: AXR independently reviewed with decreased small bowel dilation. Improvement of ileus from prior studies. ASSESSMENT: 1. Perforated diverticulitis with pneumoperitoneum 2. Ileus secondary to sepsis, resolving 3. Sepsis on admission PLAN: 1. Infectious disease following with adjustment of IV antibiotics 2. I personally removed his NGT as output was less than 50 mL and clear, non- bilious after suction 3. Start full liquid diet 4. Disposition in 24 hrs with adjustment to oral pain meds and diet. Objective - Vital Signs Vital signs: Vital Signs Temp 97.5 F L 10/06/19 07:00 Pulse 83 10/06/19 07:00 Resp 12 10/06/19 07:00 BP 142/93 10/06/19 07:00 Pulse Ox 94 L 10/06/19 07:00 Intake & Output 10/05/19 10/06/19 10/06/19 18:59 06:59 18:59 Intake Total 908.333 800 Balance 908.333 800 Intake: Intake, IV Titration 908.333 800 Amount Amino Acid 4.25%-D10w+ 908.333 Lytes*E* 1,000 ml @ 100 mls/hr IV .BY DURATION [facility] Rx#:[id number] Mvi, Adult No.4 with Vit 800 K 10 ml Trace (Conc-1Ml/ Dose) 1 ml Potassium Chloride 20 meq In Amino Acid 4.25%-D10w+Lytes*E* 1,000 ml @ 100 mls/hr IV .BY DURATION [facility] Rx#: [id number] Other: Voiding Method Toilet Toilet # Voids 3 - Labs CBC & Chem 7: 10/06/19 06:10 10/06/19 06:10 Labs: Abnormal Lab Results - Last 24 Hours (Table) 10/06/19 10/06/19 10/06/19 Range/Units 00:58 06:10 06:10 WBC 15.1 H (3.8-10.6) k/uL RBC 4.12 L (4.30-5.90) m/uL Hgb 12.3 L (13.0-17.5) gm/dL Hct 37.1 L (39.0-53.0) % Neutrophils # 12.3 H (1.3-7.7) k/uL Carbon Dioxide 31 H (22-30) mmol/L Glucose 132 H (74-99) mg/dL POC Glucose (mg/dL) 119 H (75-99) mg/dL Calcium 8.2 L (8.4-10.2) mg/dL 10/06/19 10/06/19 Range/Units 07:03 11:57 WBC (3.8-10.6) k/uL RBC (4.30-5.90) m/uL Hgb (13.0-17.5) gm/dL Hct (39.0-53.0) % Neutrophils # (1.3-7.7) k/uL Carbon Dioxide (22-30) mmol/L Glucose (74-99) mg/dL POC Glucose (mg/dL) 150 H 120 H (75-99) mg/dL Calcium (8.4-10.2) mg/dL Assessment and Plan (1) Perforated diverticulum of large intestine Current Visit: Yes Status: Acute Code(s): K57.20 - DVTRCLI OF LG INT W PE RFORATION AND ABSCESS W/O BLEEDING SNOMED Code(s): 595284742 (2) Pneumoperitoneum Current Visit: Yes Status: Acute Code(s): K66.8 - OTHER SPECIFIED DISORDERS OF PERITONEUM SNOMED Code(s): 53841709 (3) SIRS (systemic inflammatory response syndrome) Current Visit: Yes Status: Acute Code(s): R65.10 - SIRS OF NON-INFECTIOUS ORIGIN W/O ACUTE ORGAN DYSFUNCTION SNOMED Code(s): 740277957 (4) Morbid obesity due to excess calories Current Visit: Yes Status: Acute Code(s): E66.01 - MORBID (SEVERE) OBESITY DUE TO EXCESS CALORIES SNOMED Code(s): 372199106 (5) BMI 35.0-35.9,adult Current Visit: Yes Status: Acute Code(s): Z68.35 - BODY MASS INDEX (BMI) 35.0-35.9, ADULT SNOMED Code(s): 253861882 (6) Tobacco use disorder Current Visit: Yes Status: Acute Code(s): F17.200 - NICOTINE DEPENDENCE, UNSPECIFIED, UNCOMPLICATED SNOMED Code(s): 104874743 (7) Status post colostomy Current Visit: Yes Status: Acute Code(s): Z93.3 - COLOSTOMY STATUS SNOMED Code(s): 689415840 (8) Sleep apnea Current Visit: Yes Status: Acute Code(s): G47.30 - SLEEP APNEA, UNSPECIFIED SNOMED Code(s): 60736634
[2019-10-06 17:10] LABS: Glucose,Whole Blood 81 mg/dL (75-99)
[2019-10-06] MEDS: IBUPROFEN 600 MG TAB PO SCH ×2 (17:54→23:12)
[2019-10-06] MEDS: FLUCONAZOLE IN NACL,ISO-OSM 200 MG in SALINE 1 100ML.BAG IVPB SCH (17:54)
[2019-10-06 23:47] LABS: Glucose,Whole Blood 96 mg/dL (75-99)
[2019-10-07] MEDS: ONDANSETRON 4 MG/2 ML VIAL IVP SCH ×5 (00:01→23:53)
[2019-10-07] MEDS: PIPERACILLIN-TAZOBACTAM 3.375 GM in SODIUM CHLORIDE 0.9% 100 ML IVPB SCH ×3 (04:11→19:37)
--- NOTE | 2019-10-07 05:15 | PN ---
PROGRESS NOTE DATE OF SERVICE: 10/06/2019 This 34-year-old gentleman who was admitted with acute diverticulitis, had perforation and surgery. The patient also had peridiverticular abscess. The patient still has an NG tube. Surgery is following the patient. Patient is on broad-spectrum IV antibiotics. Cultures are negative. No chest pain or palpitations. PAST MEDICAL HISTORY: Reviewed. REVIEW OF SYSTEMS: CARDIOVASCULAR SYSTEM: No angina. RESPIRATORY SYSTEM: As mentioned earlier. GI: No nausea or vomiting. : No dysuria. Nervous System: No numbness or weakness. MEDICATIONS: Current medications are reviewed and include: 1. Tylenol 650 q.6 p.r.n. 2. Entereg 12 mg b.i.d. 3. Hurricaine spray. 4. Cepacol lozenge. 5. Calmoseptine. 6. Pepcid. 7. Neurontin. 8. Heparin. 9. Dilaudid. 10.Zestril. 11.Reglan. 12.Narcan. 13.Zofran. 14.Zosyn IV. PHYSICAL EXAMINATION: The patient is alert and oriented x3. Pulse is 83. Blood pressure 145/82, respiration 12, temperature 97.8, pulse ox 97% on room air. HEENT: Conjunctivae normal. Oral mucosa moist. NECK: No jugular venous distention. No carotid bruit. No lymph node enlargement. CARDIOVASCULAR: S1, S2 muffled. RESPIRATORY: Breath sounds diminished at the bases. A few scattered rhonchi and crackles. ABDOMEN: Soft, nontender. LEGS: No edema. NERVOUS SYSTEM: No focal deficits. LABS: WBC 15.1, hemoglobin 12.3. Sodium 139, potassium 3.9. Calcium 8.2. ASSESSMENT: 1. Acute diverticulitis and perforation with pneumoperitoneum and peritonitis. 2. Status post exploratory laparotomy with sigmoid colectomy and end colostomy. 3. Peridiverticular abscess with possible sepsis, present on admission. 4. Hypertension. 5. Sleep apnea on CPAP, BiPAP. 6. An 8 mm left kidney stone. 7. Nicotine dependence. 8. Increased WBC. 9. Anemia, normocytic anemia of chronic disease. 10.History of hypertension. 11.History of sleep apnea. 12.History of degenerative joint disease. 13.History of continued ongoing nicotine dependence. 14.FULL CODE. RECOMMENDATIONS AND DISCUSSION: In this 34-year-old gentleman who presented with multiple complex medical issues, will monitor the patient closely. Continue the current medications, continue symptomatic treatment. Otherwise at this time I recommend broad-spectrum IV antibiotics. Closely follow with multiple consultants. Cultures are negative so far. Guarded prognosis. Further recommendations to follow. MMODL / IJN: [id number] /
[2019-10-07 07:06] LABS: Basophils # (A) 0.1 k/uL (0-0.2); Basophils % (A) 1 %; Eosinophils # (A) 0.3 k/uL (0-0.7); Eosinophils % (A) 2 %; HCT 38.1 % (39.0-53.0); HGB 12.7 gm/dL (13.0-17.5); Lymphocytes # (A) 1.8 k/uL (1.0-4.8); Lymphocytes % (A) 13 %; MCH 30.3 pg (25.0-35.0); MCHC 33.4 g/dL (31.0-37.0); MCV 90.7 fL (80.0-100.0); Mean Platelet Volume 8.2; Monocytes # (A) 0.5 k/uL (0-1.0); Monocytes % (A) 4 %; Neutrophils # (A) 10.7 k/uL (1.3-7.7); Neutrophils % (A) 78 %; Platelet Count 327 k/uL (150-450); RBC 4.19 m/uL (4.30-5.90); RDW 13.3 % (11.5-15.5); WBC 13.8 k/uL (3.8-10.6)
[2019-10-07] MEDS: METOCLOPRAMIDE 5 MG/ML 2 ML VIAL IVP SCH ×5 (07:13→23:53)
[2019-10-07 07:20] LABS: African American GFR (CKD) >90 (>60 ml/min/1.73 sqM); Anion Gap 5 mmol/L; Blood Urea Nitrogen 12 mg/dL (9-20); Calcium 8.7 mg/dL (8.4-10.2); Carbon Dioxide 32 mmol/L (22-30); Chloride 103 mmol/L (98-107); Glucose 111 mg/dL (74-99); Magnesium 2.1 mg/dL (1.6-2.3); Non-African American GFR(CKD) >90 (>60 ml/min/1.73 sqM); Phosphorus 4.1 mg/dL (2.5-4.5); Potassium 4.7 mmol/L (3.5-5.1); Sodium 140 mmol/L (137-145)
[2019-10-07 07:35] LABS: Glucose,Whole Blood 113 mg/dL (75-99)
--- NOTE | 2019-10-07 07:38 | PN ---
PROGRESS NOTE DATE OF SERVICE: 10/06/2019 REASON FOR FOLLOWUP: Secondary peritonitis from perforated sigmoid diverticulitis. INTERVAL HISTORY: The patient is currently afebrile. Patient has been complaining of the NG, which has been clamped for a day now. Denies any vomiting. No chest pain, shortness of breath or cough. No worsening abdominal pain. Did have output in his colostomy bag. PHYSICAL EXAMINATION: On examination, blood pressure 145/82 with a pulse of 83, temperature 97.8. He is 97% on room air. General description is a middle-aged male up in the bed in no distress. RESPIRATORY SYSTEM: Unlabored breathing, decreased breath sounds at the bases. No wheeze. HEART: S1, S2. Regular rate and rhythm. ABDOMEN: Soft, no tenderness. LABS: Hemoglobin is 12.3, white count 15.1. BUN of 11, creatinine 0.80. Blood culture has been negative. DIAGNOSTIC IMPRESSION AND PLAN: Patient with perforated sigmoid diverticulitis, status post diverting colostomy, now with concern for . White count did not show significant improvement. Currently on Zosyn and Diflucan. His white count remains to be elevated and is not resolved. May recommend repeating CT to make sure no evidence of any abscess that may need to be drained. Continue with supportive care. MMODL / IJN: [id number] /
[2019-10-07] MEDS: IBUPROFEN 600 MG TAB PO SCH ×3 (07:42→22:11)
[2019-10-07] MEDS: FAMOTIDINE 20 MG TAB PO SCH ×2 (07:42→22:11)
[2019-10-07] MEDS: GABAPENTIN 300 MG CAP PO SCH ×3 (07:43→22:12)
[2019-10-07] MEDS: ALVIMOPAN 12 MG CAPSULE PO SCH ×2 (07:43→22:11)
[2019-10-07] MEDS: LISINOPRIL 20 MG TAB PO SCH (07:43)
[2019-10-07] MEDS: HEPARIN SODIUM,PORCINE 5,000 UNIT/ML 1 ML VIAL SQ SCH ×2 (07:43→22:11)
[2019-10-07] MEDS: amLODIPine 10 MG TAB PO SCH (07:43)
[2019-10-07] MEDS: ARMODAFINIL 50 MG PO SCH (07:47)
[2019-10-07] MEDS: MENTHOL-ZINC OXIDE OINT 113 GM TUBE TOPICAL SCH (07:47)
[2019-10-07 11:49] LABS: Glucose,Whole Blood 96 mg/dL (75-99)
--- NOTE | 2019-10-07 12:29 | P.PN ---
<Janet oGnzalez Alfredito - Last Filed: 10/07/19 12:24> Subjective Progress Note Date: 10/07/19 CHIEF COMPLAINT: Abdominal pain HISTORY OF PRESENT ILLNESS: Patient seen and examined at the bedside. Patient is s/p exploratory laparotomy with sigmoid colectomy and end colostomy. Patient r eports abdominal pain is tolerable. Ostomy with stool noted. Tolerating diet. Denies nausea or vomiting. WBC 13.8 PHYSICAL EXAM: VITAL SIGNS: Reviewed GENERAL: Well-developed in no acute distress. HEENT: No sclera icterus. Extraocular movements grossly intact. Moist buccal mucosa. Head is atraumatic, normocephalic. Hears conversational speech. No nasal drainage. NECK: Supple without lymphadenopathy. CHEST: Non-labored respirations and equal bilateral excursions. CARDIOVASCULAR: Regular rate with regular rhythm. Palpable 2+ radial pulses. ABDOMEN: Soft. Nondistended. Ostomy with stool noted. Dressing to midline incision clean dry intact. MUSCULOSKELETAL: No clubbing or cyanosis. NEUROLOGIC: No focal or lateralizing signs. Cranial nerves II through XII ned sly intact. PSYCH: Appropriate affect. Alert and oriented to person, place and time. SKIN: Well perfused. Good skin turgor. ASSESSMENT: 1. Abdominal pain 2. Acute sigmoid diverticulitis with phlegmon and abscess formation 3. Postoperative ileus, resolved PLAN: -Continue full liquid diet -Incentive spirometer -Activity as tolerated -Pain control -Case discussed with Dr. Kilpatrick this morning. Case management has sent referrals for IV antibiotic coverage. Anticipate discharge when IV antibiotic arrangements are finalized. Nurse practitioner note has been reviewed by physician. Signing provider agrees with the documented findings, assessment, and plan of care. Objective - Vital Signs Vital signs: Vital Signs Temp 98.3 F 10/07/19 07:00 Pulse 83 10/07/19 07:00 Resp 16 10/07/19 07:20 BP 142/88 10/07/19 07:00 Pulse Ox 96 10/07/19 07:00 Intake & Output 10/06/19 10/07/19 10/07/19 18:59 06:59 18:59 Intake Total 240 Balance 240 Intake: IV 240 IV Fluid 240 Other: Voiding Method Toilet Toilet # Voids 3 - Labs CBC & Chem 7: 10/07/19 06:29 10/07/19 06:29 Labs: Abnormal Lab Results - Last 24 Hours (Table) 10/07/19 10/07/19 10/07/19 Range/Units 06:29 06:29 07:24 WBC 13.8 H (3.8-10.6) k/uL RBC 4.19 L (4.30-5.90) m/uL Hgb 12.7 L (13.0-17.5) gm/dL Hct 38.1 L (39.0-53.0) % Neutrophils # 10.7 H (1.3-7.7) k/uL Carbon Dioxide 32 H (22-30) mmol/L Glucose 111 H (74-99) mg/dL POC Glucose (mg/dL) 113 H (75-99) mg/dL <Lucero Liriano N - Last Filed: 10/07/19 23:09> Subjective He is doing well. Discharge pending antibiotic management. Objective - Vital Signs Vital signs: Vital Signs Temp 98.8 F 10/07/19 20:04 Pulse 78 10/07/19 20:04 Resp 16 10/07/19 20:04 BP 143/90 10/07/19 20:04 Pulse Ox 97 10/07/19 20:04 Intake & Output 10/07/19 10/07/19 10/08/19 06:59 18:59 06:59 Intake Total 240 100 540 Balance 240 100 540 Weight 108.862 kg Intake: IV 240 IV Fluid 240 Oral 100 540 Other: Voiding Method Toilet Toilet # Voids 3 - Labs CBC & Chem 7: 10/07/19 06:29 10/07/19 06:29 Labs: Abnormal Lab Results - Last 24 Hours (Table) 10/07/19 10/07/19 10/07/19 Range/Units 06:29 06:29 07:24 WBC 13.8 H (3.8-10.6) k/uL RBC 4.19 L (4.30-5.90) m/uL Hgb 12.7 L (13.0-17.5) gm/dL Hct 38.1 L (39.0-53.0) % Neutrophils # 10.7 H (1.3-7.7) k/uL Carbon Dioxide 32 H (22-30) mmol/L Glucose 111 H (74-99) mg/dL POC Glucose (mg/dL) 113 H (75-99) mg/dL 10/07/19 Range/Units 16:26 WBC (3.8-10.6) k/uL RBC (4.30-5.90) m/uL Hgb (13.0-17.5) gm/dL Hct (39.0-53.0) % Neutrophils # (1.3-7.7) k/uL Carbon Dioxide (22-30) mmol/L Glucose (74-99) mg/dL POC Glucose (mg/dL) 110 H (75-99) mg/dL Assessment and Plan (1) Perforated diverticulum of large intestine Current Visit: Yes Status: Acute Code(s): K57.20 - DVTRCLI OF LG INT W PERFORATION AND ABSCESS W/O BLEEDING SNOMED Code(s): 532996864 (2) Pneumoperitoneum Current Visit: Yes Status: Acute Code(s): K66.8 - OTHER SPECIFIED DISORDERS OF PERITONEUM SNOMED Code(s): 96340689 (3) SIRS (systemic inflammatory response syndrome) Current Visit: Yes Status: Acute Code(s): R65.10 - SIRS OF NON-INFECTIOUS ORIGIN W/O ACUTE ORGAN DYSFUNCTION SNOMED Code(s): 973892784 (4) Morbid obesity due to excess calories Current Visit: Yes Status: Acute Code(s): E66.01 - MORBID (SEVERE) OBESITY DUE TO EXCESS CALORIES SNOMED Code(s): 050191627 (5) BMI 35.0-35.9,adult Current Visit: Yes Status: Acute Code(s): Z68.35 - BODY MASS INDEX (BMI) 35.0-35.9, ADULT SNOMED Code(s): 765876989 (6) Tobacco use disorder Current Visit: Yes Status: Acute Code(s): F17.200 - NICOTINE DEPENDENCE, UNSPECIFIED, UNCOMPLICATED SNOMED Code(s): 826953811 (7) Status post colostomy Current Visit: Yes Status: Acute Code(s): Z93.3 - COLOSTOMY STATUS SNOMED Code(s): 732153780 (8) Sleep apnea Current Visit: Yes Status: Acute Code(s): G47.30 - SLEEP APNEA, UNSPECIFIED SNOMED Code(s): 80259218
[2019-10-07] MEDS ORDERED: ERTAPENEM 1 GM in SODIUM CHLORIDE 0.9% 50 ML IVPB STA (14:50)
[2019-10-07 16:39] LABS: Glucose,Whole Blood 110 mg/dL (75-99)
[2019-10-07] MEDS: FLUCONAZOLE IN NACL,ISO-OSM 200 MG in SALINE 1 100ML.BAG IVPB SCH (17:04)
--- NOTE | 2019-10-07 21:06 | PN ---
PROGRESS NOTE DATE OF SERVICE: 10/07/2019 REASON FOR FOLLOWUP: Secondary peritonitis from perforated diverticulitis. INTERVAL HISTORY: The patient is currently afebrile. Patient has been feeling much better. The patient denies having any chest pain. No shortness of breath. No cough. Abdominal pain has improved and resolved. NG is out. No further nausea, no vomiting. PHYSICAL EXAMINATION: Blood pressure 134/84 with a pulse of 72, temperature 98.1. He is 97% on room air. General description is a middle-aged male lying in bed in no distress. Respiratory system: Unlabored breathing, clear to auscultation anteriorly. Heart S1, S2. Regular rate and rhythm. Abdomen soft, no tenderness. LABS: Hemoglobin is 12.5, white count 13.8, creatinine is 1.05. DIAGNOSTIC IMPRESSION AND PLAN: Patient with secondary peritonitis from perforated sigmoid diverticulitis. This patient is status post laparotomy and diverting colostomy. The patient's white count is on a downward trend. In view of his protracted, prolonged postoperative course, may benefit from the addition of IV antitonic in the outpatient setting. Will try to arrange and will be Invanz 1 g daily for about 10 days with oral Diflucan. Will monitor his clinical course closely. MMODL / IJN: [id number] /
--- NOTE | 2019-10-08 00:07 | PN ---
PROGRESS NOTE DATE OF SERVICE: 10/07/2019 This 34-year-old gentleman with a past medical history of multiple medical problems was admitted to the hospital with acute diverticulitis. The patient pneumoperitoneum and hand perforation, sepsis. The patient had exploratory and surgery. NG tube was removed. White count is elevated. Patient being closely monitored at this time. Surgery has seen the patient and recommended possible IV antibiotic treatment. Dr. Kilpatrick is following the patient closely. Cultures are negative so far. PAST MEDICAL HISTORY: Reviewed. REVIEW OF SYSTEMS: Cardiovascular system: No angina or palpitations. RESPIRATORY: As mentioned earlier. GI: As mentioned earlier. : No dysuria or retention. CENTRAL NERVOUS SYSTEM: No focal deficits. MEDICATIONS: Current medications reviewed and include: 1. Tylenol 650 q.6h p.r.n. 2. Entereg. 3. Norvasc 10 mg p.o. 4. Hurricane spray. 5. Cepacol. 6. Calmoseptine. 7. Pepcid. 8. Heparin. 9. Motrin. 10.Zestril. 11.Reglan. 12.Narcan. 13.Zosyn. 14.Doses are reviewed. PHYSICAL EXAMINATION: Alert and oriented times three. Pulse 72. Blood pressure 134/84, respirations 16, temperature 98.8, pulse ox 98% on room air. HEENT: Conjunctivae normal. NECK: No JVD. CARDIOVASCULAR: S1, S2 muffled. RESPIRATORY: Breath sounds diminished in the bases. Bilateral scattered rhonchi and crackles. ABDOMEN: Soft, obese, status post surgery. LEGS are no edema. No swelling. CENTRAL NERVOUS SYSTEM: No focal deficits. LABS: WBC 13.8, hemoglobin 12.7. Accu-Cheks noted. ASSESSMENT: 1. Acute diverticulitis with perforation and pneumoperitoneum and peritonitis with possible sepsis admission present on admission thank. 2. 3. Status post exploratory laparotomy and sigmoid colectomy and end-colostomy. 4. Peridiverticular abscess with possible sepsis present on admission. 5. Hypertension. 6. Sleep apnea on CPAP and BiPAP. 7. An 8 mm left kidney stone. 8. History of nicotine dependence. 9. Increased WBC. 10.Anemia, normocytic anemia of chronic disease. 11.History of hypertension. 12.History of sleep apnea. 13.History of degenerative joint disease. 14.Continued ongoing nicotine dependence. 15.FULL CODE. RECOMMENDATIONS AND DISCUSSION: In this 34-year-old gentleman who presented with multiple complex medical issues, we will monitor the patient closely, continue the current medications, symptomatic treatment. Otherwise, at this time, I recommend continue with IV antibiotics and Dr. Kilpatrick is going to evaluate the patient and we will check with the insurance company regarding the insurance coverage. Otherwise overall prognosis guarded. Further recommendations to follow. Incentive spirometry and DVT prophylaxis. Further recommendations to follow. MMODL / IJN: [id number] /
[2019-10-08] MEDS: PIPERACILLIN-TAZOBACTAM 3.375 GM in SODIUM CHLORIDE 0.9% 100 ML IVPB SCH ×2 (04:19→11:56)
[2019-10-08] MEDS: METOCLOPRAMIDE 5 MG/ML 2 ML VIAL IVP SCH ×2 (05:31→11:52)
[2019-10-08] MEDS: ONDANSETRON 4 MG/2 ML VIAL IVP SCH ×2 (05:31→11:52)
[2019-10-08 06:17] LABS: Glucose,Whole Blood 114 mg/dL (75-99)
[2019-10-08] MEDS: MENTHOL-ZINC OXIDE OINT 113 GM TUBE TOPICAL SCH (06:54)
[2019-10-08] MEDS: ARMODAFINIL 50 MG PO SCH (06:54)
[2019-10-08 06:55] LABS: Basophils # (A) 0.1 k/uL (0-0.2); Basophils % (A) 0 %; Eosinophils # (A) 0.4 k/uL (0-0.7); Eosinophils % (A) 2 %; HCT 41.4 % (39.0-53.0); HGB 13.5 gm/dL (13.0-17.5); Lymphocytes # (A) 1.7 k/uL (1.0-4.8); Lymphocytes % (A) 11 %; MCH 29.8 pg (25.0-35.0); MCHC 32.6 g/dL (31.0-37.0); MCV 91.2 fL (80.0-100.0); Mean Platelet Volume 8.1; Monocytes # (A) 0.5 k/uL (0-1.0); Monocytes % (A) 3 %; Neutrophils % (A) 82 %; Platelet Count 358 k/uL (150-450); RBC 4.53 m/uL (4.30-5.90); RDW 13.3 % (11.5-15.5); WBC 15.9 k/uL (3.8-10.6)
[2019-10-08 06:56] VITALS: BP 138/84; PULSE 81; RESP 17; TEMP 98.1
[2019-10-08] MEDS: GABAPENTIN 300 MG CAP PO SCH (06:57)
[2019-10-08] MEDS: FAMOTIDINE 20 MG TAB PO SCH (06:57)
[2019-10-08] MEDS: amLODIPine 10 MG TAB PO SCH (06:57)
[2019-10-08] MEDS: IBUPROFEN 600 MG TAB PO SCH (06:57)
[2019-10-08] MEDS: LISINOPRIL 20 MG TAB PO SCH (06:57)
[2019-10-08] MEDS: HEPARIN SODIUM,PORCINE 5,000 UNIT/ML 1 ML VIAL SQ SCH (06:58)
--- NOTE | 2019-10-08 11:28 | P.PN ---
<Janet Gonzalez Alfredito - Last Filed: 10/08/19 11:24> Subjective Progress Note Date: 10/08/19 CHIEF COMPLAINT: Abdominal pain HISTORY OF PRESENT ILLNESS: Patient seen and examined at the bedside. Patient is s/p exploratory laparotomy with sigmoid colectomy and end colostomy. Patient r eports abdominal pain is tolerable. Ostomy with stool noted. Tolerating diet. Denies nausea or vomiting. WBC 15.9. Vital signs are stable. He is afebrile. PHYSICAL EXAM: VITAL SIGNS: Reviewed GENERAL: Well-developed in no acute distress. HEENT: No sclera icterus. Extraocular movements grossly intact. Moist buccal mucosa. Head is atraumatic, normocephalic. Hears conversational speech. No nasal drainage. NECK: Supple without lymphadenopathy. CHEST: Non-labored respirations and equal bilateral excursions. CARDIOVASCULAR: Regular rate with regular rhythm. Palpable 2+ radial pulses. ABDOMEN: Soft. Nondistended. Ostomy with stool noted. Dressing to midline incision clean dry intact. MUSCULOSKELETAL: No clubbing or cyanosis. NEUROLOGIC: No focal or lateralizing signs. Cranial nerves II through XII grossly intact. PSYCH: Appropriate affect. Alert and oriented to person, place and time. SKIN: Well perfused. Good skin turgor. ASSESSMENT: 1. Abdominal pain 2. Acute sigmoid diverticulitis with phlegmon and abscess formation 3. Postoperative ileus, resolved PLAN: -Advance diet to low fiber -Incentive spirometer -Activity as tolerated -Pain control -Stable for discharge when cleared by infectious disease and antibiotic arrangements are finalized Nurse practitioner note has been reviewed by physician. Signing provider agrees with the documented findings, assessment, and plan of care. Objective - Vital Signs Vital signs: Vital Signs Temp 98.1 F 10/08/19 06:56 Pulse 81 10/08/19 06:56 Resp 17 10/08/19 08:00 BP 138/84 10/08/19 06:56 Pulse Ox 96 10/08/19 06:56 Intake & Output 10/07/19 10/08/19 10/08/19 18:59 06:59 18:59 Intake Total 100 1080 200 Balance 100 1080 200 Weight 108.862 kg Intake: Oral 100 1080 200 Other: Voiding Method Toilet Toilet - Labs CBC & Chem 7: 10/08/19 06:22 10/07/19 06:29 Labs: Abnormal Lab Results - Last 24 Hours (Table) 10/07/19 10/08/19 10/08/19 Range/Units 16:26 06:04 06:22 WBC 15.9 H (3.8-10.6) k/uL Neutrophils # 13.0 H (1.3-7.7) k/uL POC Glucose (mg/dL) 110 H 114 H (75-99) mg/dL <Lucero Liriano - Last Filed: 10/09/19 08:38> Subjective As above. Patient to follow-up as outpatient once cleared by infectious disease regarding antibiotics Objective - Vital Signs Vital signs: Vital Signs Temp 98.1 F 10/08/19 06:56 Pulse 81 10/08/19 06:56 Resp 17 10/08/19 08:00 BP 138/84 10/08/19 06:56 Pulse Ox 96 10/08/19 06:56 Intake & Output 10/08/19 10/09/19 10/09/19 18:59 06:59 18:59 Intake Total 300 Balance 300 Intake: Oral 300 Other: Voiding Method Toilet - Labs CBC & Chem 7: 10/08/19 06:22 10/07/19 06:29 Labs: Abnormal Lab Results - Last 24 Hours (Table) 10/08/19 Range/Units 11:37 POC Glucose (mg/dL) 104 H (75-99) mg/dL Assessment and Plan (1) Perforated diverticulum of large intestine Status: Acute Code(s): K57.20 - DVTRCLI OF LG INT W PERFORATION AND ABSCESS W/O BLEEDING SNOMED Code(s): 743984162 (2) Pneumoperitoneum Status: Acute Code(s): K66.8 - OTHER SPECIFIED DISORDERS OF PERITONEUM SNOMED Code(s): 89340447 (3) SIRS (systemic inflammatory response syndrome) Status: Acute Code(s): R65.10 - SIRS OF NON-INFECTIOUS ORIGIN W/O ACUTE ORGAN DYSFUNCTION SNOMED Code(s): 469527929 (4) Morbid obesity due to excess calories Status: Acute Code(s): E66.01 - MORBID (SEVERE) OBESITY DUE TO EXCESS CALORIES SNOMED Code(s): 274231470 (5) BMI 35.0-35.9,adult Status: Acute Code(s): Z68.35 - BODY MASS INDEX (BMI) 35.0-35.9, ADULT SNOMED Code(s): 432691597 (6) Tobacco use disorder Status: Acute Code(s): F17.200 - NICOTINE DEPENDENCE, UNSPECIFIED, UNCOMPLICATED SNOMED Code(s): 328376836 (7) Status post colostomy Status: Acute Code(s): Z93.3 - COLOSTOMY STATUS SNOMED Code(s): 523944207 (8) Sleep apnea Status: Acute Code(s): G47.30 - SLEEP APNEA, UNSPECIFIED SNOMED Code(s): 47723995
[2019-10-08 11:49] LABS: Glucose,Whole Blood 104 mg/dL (75-99)
--- NOTE | 2019-10-08 14:10 | PN ---
PROGRESS NOTE DATE OF SERVICE: 10/08/2019 REASON FOR FOLLOWUP: Secondary peritonitis from perforated sigmoid diverticulitis. INTERVAL HISTORY: The patient is currently afebrile. Patient has been feeling much better, breathing comfortably. The patient currently denies having nausea, no vomiting. Has been tolerating his foot. Denies having any abdominal pain at all. He did have output in his colostomy bag. No chest pain, shortness of breath or cough. He his really insisting on going home. PHYSICAL EXAMINATION: Blood pressure 130/84 with a pulse of 81, temperature 98.1, he is 96% on room air. General description is a middle-aged male, up in the chair in no distress. RESPIRATORY SYSTEM: Unlabored breathing,clear to auscultation anteriorly. HEART S1, S2. Regular rate and rhythm. ABDOMEN: Soft, no tenderness, no guarding or rigidity. EXTREMITIES: No edema of the feet. LABS: Hemoglobin is 13.4, white count 15.9. DIAGNOSTIC IMPRESSION AND PLAN: Patient with secondary peritonitis from perforated sigmoid diverticulitis, status post diverting colostomy. The patient would have benefit from IV antibiotic therapy. However, patient apparently did not have a good coverage for outpatient IV antibiotics and the patient has been really insisting on going home, threatening to leave AMA. I have recommended a CT abdominal, pelvis with this persistent elevated white count. However, the patient currently does not have any abdominal pain and does not want to wait for any further investigation. Antibiotic will be switched to Augmentin 875 b.i.d. for 10 days. Prescription sent out. Patient advised to follow up in the office with repeat CBC to be for followup and if any persistent elevated white count, CT will be done at that time. Patient also advised if any recurrence of abdominal pain or fever after he goes home, to let us know right away. MMODL / IJN: [id number] /
--- NOTE | 2019-10-08 14:58 | P.DS ---
Providers Date of admission: 09/28/19 03:25 Expected date of discharge: 10/08/19 Attending physician: Deondre Waldrop Consults: 09/28/19 08:41 Consult Physician Urgent Consulting Provider: Ari Jamil Consult Reason/Comments: diverticulitis with abscess Do you want consulting provider notified?: Yes Consult Physician Urgent Consulting Provider: Yumiko Montes De Oca Consult Reason/Comments: diverticulitis Do you want consulting provider notified?: Yes 09/30/19 09:19 Consult Physician Urgent Consulting Provider: Noble Kilpatrick Consult Reason/Comments: fever and diverticulitis ,sp surgery Do you want consulting provider notified?: Yes Primary care physician: Erica Nazario Hospital Course: Final diagnosis Acute diverticulitis with perforation and pneumoperitoneum and peritonitis with possible sepsis, present on admission Status post exploratory laparotomy and sigmoid colectomy and end colostomy Peridiverticular abscess with possible sepsis, present on admission Hypertension Sleep apnea on CPAP and BiPAP 8 mm left kidney stone History of nicotine dependence Increased WBC Anemia, normocytic anemia of chronic disease History of hypertension History of sleep apnea History of degenerative joint disease Continued ongoing nicotine dependence Full code Discharge disposition Patient is being discharged in a stable condition with guarded prognosis to home and will follow-up with his primary care provider Dr. Nazario early next week as well as infectious disease Dr. Kilpatrick in the outpatient setting in 1 week. Patient will continue on oral antibiotics in the form of Augmentin twice daily for the next 10 days. Total time taken is 35 minutes. History of present illness This is a 34-year-old male who was recently admitted for acute diverticulitis and was being closely monitored. During hospitalization patient underwent exploratory laparotomy with sigmoid colectomy and end colostomy. Ostomy bag showing output. Patient's insurance will not cover IV antibiotic therapy in the outpatient setting and patient will continue on oral antibiotics in the form of Augmentin twice daily for the next 10 days and will follow-up with Dr. Kilpatrick in the clinic early next week. Patient will need repeat labs in 2-3 days to monitor the white blood count as it was elevated. Currently patient's condition is stable and would like to go home today. Patient is persistent on going home today. Currently patient denies any chest pain, shortness of breath, or palpitations. Patient has been afebrile. Patient denies any nausea or vomiting and is eating. Guarded prognosis. On exam vital signs are stable. Temp is 98.1F, pulse is 81, respirations are 17, blood pressure is 138/84, oxygen saturation is 96% on room air. Cardio S1, S2 are muffled. Respiratory system shows diminished breath sounds at the bases with a few scattered rhonchi noted. Abdomen is soft and nontender. Nervous system shows no focal deficits. Please refer to medication reconciliation sheet for a list of medications. Patient Condition at Discharge: Stable Plan - Discharge Summary Discharge Rx Participant: Yes New Discharge Prescriptions: New Amoxic-Pot Clav 875-125Mg [Augmentin 875-125] 1 tab PO Q12HR #20 tablet Famotidine [Pepcid] 20 mg PO Q12HR 30 Days #60 tab Continue amLODIPine BESYLATE/BENAZEPRIL [Lotrel 10-20 MG] 1 cap PO DAILY Armodafinil [Nuvigil] 50 mg PO QAM Multivitamins, Thera [Multivitamin (formulary)] 1 tab PO DAILY Celecoxib [CeleBREX] 200 mg PO DAILY Discharge Medication List Armodafinil [Nuvigil] 50 mg PO QAM 01/24/19 [History] amLODIPine BESYLATE/BENAZEPRIL [Lotrel 10-20 MG] 1 cap PO DAILY 01/24/19 [ History] Celecoxib [CeleBREX] 200 mg PO DAILY 09/28/19 [History] Multivitamins, Thera [Multivitamin (formulary)] 1 tab PO DAILY 09/28/19 [History] Amoxic-Pot Clav 875-125Mg [Augmentin 875-125] 1 tab PO Q12HR #20 tablet 10/08/19 [Rx] Famotidine [Pepcid] 20 mg PO Q12HR 30 Days #60 tab 10/08/19 [Rx] Follow up Appointment(s)/Referral(s): Erica Nazario MD [Primary Care Provider] - 10/14/19 11:00 am [facility], [NON-STAFF] - Noble Kilpatrick MD [STAFF PHYSICIAN] - 10/19/19 2:30 pm Ari Jamil MD [STAFF PHYSICIAN] - 10/14/19 1:10 pm Ambulatory/Diagnostic Orders: Complete Blood Count w/diff [LAB.AMB] Time Frame: 3 Days, Location: None Selected Patient Instructions/Handouts: How to Stop Smoking (GEN), Diverticulitis (GEN), Colostomy Care (GEN) Activity/Diet/Wound Care/Special Instructions: Colostomy Care Instructions: Last pouching system change: 10.04.2019 Mr Bucio will have the following supplies sent home with home for home use: [employer]vatec flanges moldable #[id number] (3) from the hospital Convatec pouching system with filter #[id number] (3) from the hospital No sting prep pads (10) from the hospital Ostomy powder Mr Bucio will be receiving a sample package with colosotmy care supplies from [facility] within 4-7 days from discharge date form the hospital Home Health please arrange after 3-4 weeks from surgical date Mr Drivers permanent colostomy care supplies - if possible disposable pouches and precut Anticipates colostomy for 12 weeks per surgeon Activity Limited until follow-up Follow-up with primary care provider upon discharge Continue current diet Repeat labs in 2-3 days Discharge Disposition: HOME WITH HOME HEALTH SERVICES
== END 2019-10-08 13:33 | disposition home health service (06) | DRG 853 ==
LOC: EC 01:18 → 4SSUR 03:25
PROVIDERS: ADMIT Hospitalist; ATTEND Hospitalist
PROC: 0D1M0Z4 Bypass Descending Colon to Cutaneous, Open Approach (ICD-10-PCS; 2019-09-29)
PROC: 0DBN0ZZ Excision of Sigmoid Colon, Open Approach (ICD-10-PCS; principal; 2019-09-29 11:55)
DX: A41.9 Sepsis, unspecified organism (principal); K65.8 Other peritonitis; K57.20 Diverticulitis of large intestine with perforation and abscess without bleeding; K56.7 Ileus, unspecified; D63.8 Anemia in other chronic diseases classified elsewhere; I10 Essential (primary) hypertension; G47.30 Sleep apnea, unspecified; N20.0 Calculus of kidney; M19.90 Unspecified osteoarthritis, unspecified site; L29.9 Pruritus, unspecified; E66.01 Morbid (severe) obesity due to excess calories; Z68.35 Body mass index [BMI] 35.0-35.9, adult; F17.210 Nicotine dependence, cigarettes, uncomplicated; Z71.6 Tobacco abuse counseling; Z79.1 Long term (current) use of non-steroidal anti-inflammatories (NSAID); Z79.899 Other long term (current) drug therapy; Z87.442 Personal history of urinary calculi; Z71.3 Dietary counseling and surveillance; Z98.890 Other specified postprocedural states; Z99.89 Dependence on other enabling machines and devices
CPT/HCPCS: 36415; 71045; 74019; 74177; 80048; 80053; 81003; 82330; 83605; 83735; 84100; 84478; 85025; 87040; 88307; 96365; 96366; 96375; 99285

== ENCOUNTER → 2019-12-23 | Outpatient (CLI) | payer OTHER ==
[2019-12-23 16:12] LABS: Chol/HDL Ratio 5.58; LDL Cholesterol,Calculated 147.8 mg/dL (0.0-131.0); VLDL Calculation 35.2 mg/dL (5.00-40.00)
== END | disposition home or self-care (01) ==
LOC: LABWHC1 08:20
PROVIDERS: ATTEND Family Medicine
DX: I10 Essential (primary) hypertension (principal)
CPT/HCPCS: 36415; 80061

== ENCOUNTER → 2019-12-23 | Outpatient (CLI) | payer OTHER ==
[2019-12-23 08:48] LABS: HCT 47.4 % (39.0-53.0); HGB 15.3 gm/dL (13.0-17.5); MCH 28.6 pg (25.0-35.0); MCHC 32.3 g/dL (31.0-37.0); MCV 88.3 fL (80.0-100.0); Mean Platelet Volume 7.4; Platelet Count 226 k/uL (150-450); RBC 5.37 m/uL (4.30-5.90); RDW 13.5 % (11.5-15.5); WBC 7.8 k/uL (3.8-10.6)
[2019-12-23 08:57] LABS: Potassium 4.4 mmol/L (3.5-5.1)
== END | disposition home or self-care (01) ==
LOC: LABPAT 08:17
PROVIDERS: ATTEND Surgery
DX: Z01.818 Encounter for other preprocedural examination (principal); K57.32 Diverticulitis of large intestine without perforation or abscess without bleeding
CPT/HCPCS: 36415; 80051; 85027; 93005

== ENCOUNTER → 2020-03-03 | Outpatient (CLI) | payer OTHER ==
[2020-03-03 08:57] LABS: HCT 45.8 % (39.0-53.0); HGB 15.6 gm/dL (13.0-17.5); MCH 29.6 pg (25.0-35.0); MCHC 34.1 g/dL (31.0-37.0); Mean Platelet Volume 7.4; Platelet Count 219 k/uL (150-450); RBC 5.26 m/uL (4.30-5.90); WBC 8.3 k/uL (3.8-10.6)
[2020-03-03 09:06] LABS: Potassium 4.3 mmol/L (3.5-5.1)
== END | disposition home or self-care (01) ==
LOC: LABPAT 08:13
PROVIDERS: ATTEND Surgery
DX: Z01.818 Encounter for other preprocedural examination (principal); K57.32 Diverticulitis of large intestine without perforation or abscess without bleeding
CPT/HCPCS: 80051; 85027; 36415; U0003

== ENCOUNTER 2020-03-07 07:05 | Day surgery (SDC) | payer OTHER ==
[2020-03-03 13:40] VITALS: BMI 35.4
[~2020-03-07 07:05] MED LIST: LACTATED RINGERS 1,000 ML IV SCH; LIDOCAINE 1% (10MG/ML) FOR IV START INTRADERMA PRN
[2020-03-07 07:31] VITALS: TEMP 97
[2020-03-07] MEDS ORDERED: LIDOCAINE 1% INJ 10MG/ML (20 ML MDV) ONE (07:41)
[2020-03-07] MEDS ORDERED: PROPOFOL 10 MG/ML 20 ML VIAL IV ONE (07:41)
--- NOTE | 2020-03-07 07:50 | P.GSHP ---
History of Present Illness H&P Date: 03/07/20 Chief Complaint: History of diverticulitis This a 35-year-old male with previous perforated diverticulitis. Patient has a for colonoscopy. He is undergoing reversal colostomy tomorrow. Past Medical History Past Medical History: GERD/Reflux, Hyperlipidemia, Hypertension, Sleep Apnea/CPAP/BIPAP Additional Past Medical History / Comment(s): hx kidney stones, left kidney is undersized, no CPAP used, diverticulitis with rupture History of Any Multi-Drug Resistant Organisms: None Reported Past Surgical History: Orthopedic Surgery Additional Past Surgical History / Comment(s): bilat knee athroscopy (ACL reconstruction), nasal surgery, bowel resection with colostomy 09/29/20 Past Anesthesia/Blood Transfusion Reactions: Motion Sickness, Postoperative Nausea & Vomiting (PONV) Past Psychological History: No Psychological Hx Reported Smoking Status: Former smoker Past Alcohol Use History: Occasional Past Drug Use History: None Reported - Past Family History Mother Family Medical History: No Reported History Medications and Allergies Home Medications Medication Instructions Recorded Confirmed Type amLODIPine BESYLATE/BENAZEPRIL 1 cap PO DAILY 01/24/19 03/03/20 History [Lotrel 10-20 MG] Celecoxib [CeleBREX] 200 mg PO DAILY 09/28/19 03/03/20 History Multivitamins, Thera [Multivitamin 1 tab PO DAILY 09/28/19 03/03/20 History (formulary)] Armodafinil [Nuvigil] 200 mg PO QAM 03/03/20 03/03/20 History Atorvastatin [Lipitor] 20 mg PO DAILY 03/03/20 03/03/20 History Psyllium Husk 100% [Metamucil 6 gm PO DAILY 03/03/20 03/03/20 History Packet] Allergies Allergy/AdvReac Type Severity Reaction Status Date / Time No Known Allergies Allergy Verified 03/07/20 07:28 Surgical - Exam Vital Signs Temp Pulse Resp BP Pulse Ox 97 F L 98 14 140/93 97 03/07/20 07:30 03/07/20 07:30 03/07/20 07:30 03/07/20 07:30 03/07/20 07:30 - General well developed, well nourished, no distress - Eyes PERRL - ENT normal pinna - Neck no masses - Respiratory normal expansion - Cardiovascular Rhythm: regular - Abdomen Colostomy in left lower quadrant Abdomen: soft, non tender Assessment and Plan Assessment: History of perforated diverticulitis. We'll will undergo colonoscopy today with reversal colostomy tomorrow
[2020-03-07 08:16] VITALS: BP 134/88; PULSE 88; RESP 18
--- NOTE | 2020-03-07 09:22 | P.OP ---
Date of Procedure: 03/07/20 Preoperative Diagnosis: Perforated diverticulitis Postoperative Diagnosis: History of perforated diverticulitis Diverticulosis Rectal polyp Procedure(s) Performed: Colonoscopy Anesthesia: MAC Surgeon: Ari Jamil Pathology: other (Rectal polyp) Condition: stable Disposition: PACU Description of Procedure: Date of Procedure: 03/07/20 Preoperative Diagnosis: History of perforated diverticulitis Postoperative Diagnosis: Rectal polyp Procedure(s) Performed: Colonoscopy Anesthesia: GETA Surgeon: Ari Jamil Pathology: other (Rectal polyp) Condition: stable Disposition: PACU Description of Procedure: The patient's placed on the endoscopy table lateral position. He received IV sedation. Digital rectal exam was performed which revealed a few internal hemorrhoids. The colonoscope was then advanced into the rectum past into the rectosigmoid area the patient had a previous sigmoid resection. The remnant measured approximately 25 cm in length. The scope was then withdrawn. There was a small sessile polyp seen at approximately a 20 cm kyle. This is removed w ith a forcep. The remainder the rectum appeared normal. The colonoscope was then placed the patient's colostomy site and advanced around the colon. The ileocecal valve was visualized. The cecum, ascending and transverse colon appeared normal. In the descending colon there was a few scattered diverticuli. There is known to diverticulitis. The scope was withdrawn for patient. Additional CC's: Erica Nazario
--- NOTE | 2020-03-07 09:23 | P.GSHP ---
Past Medical History Past Medical History: GERD/Reflux, Hyperlipidemia, Hypertension, Sleep Apnea/CPAP/BIPAP Additional Past Medical History / Comment(s): hx kidney stones, left kidney is undersized, no CPAP used, diverticulitis with rupture History of Any Multi-Drug Resistant Organisms: None Reported Past Surgical History: Orthopedic Surgery Additional Past Surgical History / Comment(s): bilat knee athroscopy (ACL reconstruction), nasal surgery, bowel resection with colostomy 09/29/20 Past Anesthesia/Blood Transfusion Reactions: Motion Sickness, Postoperative Nausea & Vomiting (PONV) Past Psychological History: No Psychological Hx Reported Smoking Status: Former smoker Past Alcohol Use History: Occasional Past Drug Use History: None Reported - Past Family History Mother Family Medical History: No Reported History Medications and Allergies Home Medications Medication Instructions Recorded Confirmed Type amLODIPine BESYLATE/BENAZEPRIL 1 cap PO DAILY 01/24/19 03/03/20 History [Lotrel 10-20 MG] Celecoxib [CeleBREX] 200 mg PO DAILY 09/28/19 03/03/20 History Multivitamins, Thera [Multivitamin 1 tab PO DAILY 09/28/19 03/03/20 History (formulary)] Armodafinil [Nuvigil] 200 mg PO QAM 03/03/20 03/03/20 History Atorvastatin [Lipitor] 20 mg PO DAILY 03/03/20 03/03/20 History Psyllium Husk 100% [Metamucil 6 gm PO DAILY 03/03/20 03/03/20 History Packet] Allergies Allergy/AdvReac Type Severity Reaction Status Date / Time No Known Allergies Allergy Verified 03/07/20 07:28 Surgical - Exam Vital Signs Temp Pulse Resp BP Pulse Ox 97 F L 98 14 140/93 97 03/07/20 07:30 03/07/20 07:30 03/07/20 07:30 03/07/20 07:30 03/07/20 07:30
--- NOTE | 2020-03-15 10:17 | CDI ---
Outpatient Documentation Clarification Form Date: 03/15/20 CDS/Assayer Helper Name: Imani Britt Phone: If any questions, call Vielka Pool S[employer] Making Laborer at [phone] Patient Name: Yordy Bucio Admit Date: 03/07/20 Discharge Date: 03/07/20 ATTENTION: The [facility] Coding Staff appreciate your assistance in clarifying documentation. Please respond to the clarification below the line at the bottom and electronically sign. The [facility] Coding staff will review the response and follow-up if needed. Please note: Queries are made part of the Legal Health Record. If you have any questions, please contact the Solder Making Laborer. Dear Dr. Jamil, Please provide clarification as to how the rectal polyp was removed. Procedure note just states forceps. In order to code to the greatest specificity, please proved information below. Encoscopic removal by: 1. Mucosal resection 2. Cold biopsy forceps 3. Hot biopsy forceps/ bipolar cautery 4. Snare technique 5. Ablation by other method. Thank you for your kind consideration. cold forcep [id number]
== END 2020-03-07 08:34 | disposition home or self-care (01) ==
LOC: ORWHC2ENDO 07:05
PROVIDERS: ATTEND Surgery
DX: K62.1 Rectal polyp (principal); K57.30 Diverticulosis of large intestine without perforation or abscess without bleeding; K64.8 Other hemorrhoids; K21.9 Gastro-esophageal reflux disease without esophagitis; E78.5 Hyperlipidemia, unspecified; I10 Essential (primary) hypertension; G47.33 Obstructive sleep apnea (adult) (pediatric); Z87.442 Personal history of urinary calculi; Q60.0 Renal agenesis, unilateral; Z90.49 Acquired absence of other specified parts of digestive tract; Z93.3 Colostomy status; Z87.891 Personal history of nicotine dependence; Z98.890 Other specified postprocedural states; Z79.899 Other long term (current) drug therapy; Z79.1 Long term (current) use of non-steroidal anti-inflammatories (NSAID)
CPT/HCPCS: 88305; 45380; J2001; J2704

== ENCOUNTER 2020-03-08 08:55 | Inpatient (IN) | payer OTHER ==
[2020-03-03 14:01] VITALS: BMI 35.4
[~2020-03-08 08:55] MED LIST changes: +DEXAMETHASONE SOD PHOSPHATE 10 MG/ML 1 ML VIAL IV ONE; +HYDROmorphone 0.5 MG/0.5 ML SYRINGE IVP PRN; -LACTATED RINGERS 1,000 ML IV SCH; +MIDAZOLAM 2 MG/2 ML VIAL IV PRN; +ONDANSETRON 4 MG/2 ML VIAL IVP ONE; +metroNIDAZOLE-NS PMX 500 MG in SALINE 1 100ML.BAG IVPB ONE
[2020-03-08] MEDS: HEPARIN SODIUM,PORCINE 5,000 UNIT/ML 1 ML VIAL SQ ONE ×2 (09:42→11:00)
[2020-03-08] MEDS: LACTATED RINGERS 1,000 ML IV SCH (09:42)
[2020-03-08] MEDS ORDERED: ALVIMOPAN 12 MG CAPSULE PO ONE (09:43)
[2020-03-08] MEDS ORDERED: NALOXONE 0.4 MG/ML 1 ML VIAL IV PRN (11:03)
--- NOTE | 2020-03-08 11:06 | P.ANPRN ---
Procedure Note - Anesthesia - Epidural/Spinal Epidural Continuous Time Out Performed: Yes Date of Procedure: 03/08/20 Procedure Start Time: 06:45 Procedure Stop Time: 06:53 Location of Patient: PreOp Indication: Acute Post-Operative Pain, Requested by Surgeon Sedation Type: Sedate with meaningful contact maintained Preparation: Sterile Dressing Position: Sitting Catheter: Indwelling Needle Guage: 18 Injectate: Test Dose Lidocaine1.5% w/1:200,000 epi Blood Aspirated: No Pain Paresthesia on Injection Noted: No Events: Uneventful and Well Tolerated
--- NOTE | 2020-03-08 11:08 | P.GSHP ---
History of Present Illness H&P Date: 03/08/20 Chief Complaint: History of perforated diverticulitis This is a 35-year-old male who presents today for reversal of colostomy. Patient history of perforated diverticulitis with colostomy Past Medical History Past Medical History: GERD/Reflux, Hyperlipidemia, Hypertension, Sleep Apnea/CPAP/BIPAP Additional Past Medical History / Comment(s): hx kidney stones, left kidney is undersized, no CPAP used, diverticulitis with rupture History of Any Multi-Drug Resistant Organisms: None Reported Past Surgical History: Orthopedic Surgery Additional Past Surgical History / Comment(s): bilat knee athroscopy (ACL reconstruction), nasal surgery, bowel resection with colostomy 09/29/20 Past Anesthesia/Blood Transfusion Reactions: Motion Sickness, Postoperative Nausea & Vomiting (PONV) Past Psychological History: No Psychological Hx Reported Smoking Status: Former smoker Past Alcohol Use History: Occasional Past Drug Use History: None Reported - Past Family History Mother Family Medical History: No Reported History Medications and Allergies Home Medications Medication Instructions Recorded Confirmed Type amLODIPine BESYLATE/BENAZEPRIL 1 cap PO DAILY 01/24/19 03/03/20 History [Lotrel 10-20 MG] Celecoxib [CeleBREX] 200 mg PO DAILY 09/28/19 03/03/20 History Multivitamins, Thera [Multivitamin 1 tab PO DAILY 09/28/19 03/03/20 History (formulary)] Armodafinil [Nuvigil] 200 mg PO QAM 03/03/20 03/03/20 History Atorvastatin [Lipitor] 20 mg PO DAILY 03/03/20 03/03/20 History Psyllium Husk 100% [Metamucil 6 gm PO DAILY 03/03/20 03/03/20 History Packet] Allergies Allergy/AdvReac Type Severity Reaction Status Date / Time No Known Allergies Allergy Verified 03/08/20 09:08 Surgical - Exam Vital Signs Temp Pulse Resp BP Pulse Ox 97 F L 107 H 18 150/109 100 03/08/20 09:08 03/08/20 09:08 03/08/20 09:08 03/08/20 09:08 03/08/20 09:08 - General well developed, well nourished, no distress - Eyes PERRL - ENT normal pinna - Neck no masses - Respiratory normal expansion - Cardiovascular Rhythm: regular - Abdomen Colostomy left lower quadrant Abdomen: soft, non tender Assessment and Plan Assessment: History of perforated diverticulitis. We'll perform reversal of colostomy.
[2020-03-08] MEDS ORDERED: PHENYLEPHRINE-0.9% NACL SYG 1 MG/10 ML SYRINGE ONE (11:11)
[2020-03-08] MEDS ORDERED: MIDAZOLAM 2 MG/2 ML VIAL ONE (11:11)
[2020-03-08] MEDS ORDERED: ROCURONIUM BROMIDE 10 MG/ML 5 ML VIAL IV ONE (11:11)
[2020-03-08] MEDS ORDERED: PROPOFOL 10 MG/ML 20 ML VIAL IV ONE (11:11)
[2020-03-08] MEDS ORDERED: NEOSTIGMINE 1 MG/ML 10 ML VIAL ONE (11:11)
[2020-03-08] MEDS ORDERED: GLYCOPYRROLATE 0.2 MG/ML 2 ML VIAL ONE (11:11)
[2020-03-08] MEDS ORDERED: fentaNYL (PF) 50 MCG/ML 2 ML AMP ONE (11:11)
[2020-03-08] MEDS ORDERED: SUCCINYLCHOLINE CHLORIDE 100 MG/5 ML SYR IV ONE (11:11)
[2020-03-08] MEDS ORDERED: LIDOCAINE 1% INJ 10MG/ML (20 ML MDV) ONE (11:11)
[2020-03-08] MEDS ORDERED: LACTATED RINGERS 1,000 ML IV ONE (11:42)
--- NOTE | 2020-03-08 12:56 | P.OP ---
Date of Procedure: 03/08/20 Preoperative Diagnosis: History of perforated diverticulitis Postoperative Diagnosis: History of perforated diverticula is Procedure(s) Performed: Reversal of colostomy Lysis of adhesion Partial omentectomy Anesthesia: EDWIN Surgeon: Ari Jamil Estimated Blood Loss (ml): 50 Pathology: other (Colon, omentum) Condition: stable Disposition: PACU Description of Procedure: The patient's placed on the operating table in supine position. He received general anesthesia. He was then placed in dorsal lithotomy position. His abdomen was prepped and draped usual sterile fashion. A Ioban drape was used to drape off the colostomy. The abdomen was entered through a midline incision. The abdominal wall was divided with cautery. The pericardium was entered. There were adhesions antral wall these were lysed with sharp dissection. This point the colostomy was found and then the colostomy was transected with the DANNY stapler against the fascia. The Bookwalter tract with wound. And then the rectal stump was incised. The patient a very long rectal stump. The proximal c olon had a good length. It was decided to perform a [id number] functional end-to-end staple anastomosis created using DANNY and TA stapler a side functional end-to-end staple S was then created between the rectum and the proximal colon. The abdomen was irrigated there is no bleeding seen. The omentum was examined there is be some nonviable omentum which was transected with the incidental device. The fascia was then closed using #1 ststratafix suture. The midline fascia was closed with looped #1 PDS suture. Skin was closed donald. The colostomy site was then excised. Electrocautery was used to dissect the colostomy from the subcutaneous tissues. The anterior fascia was closed with #1 Vicryl suture. Skin was closed donald. Patient top she will was sent to recovery room in stable condition.
[2020-03-08] MEDS ORDERED: METOCLOPRAMIDE 5 MG/ML 2 ML VIAL IVP PRN (12:57)
[2020-03-08] MEDS: ROPIVACAINE 250 MG, HYDROMORPHONE (PF) 5 MG in SODIUM CHLORIDE 0.9% 200 ML EPIDURAL PRN (13:33)
--- NOTE | 2020-03-08 14:45 | P.CONS ---
History of Present Illness - Reason for Consult Management of the blood pressure - History of Present Illness Carly 5-year-old the female admitted for a elective reversal of colostomy patient's excessive and underwent surgery patient has some soreness in the surgical site area. Patient any fever chills nausea vomiting, dysuria cough. Patient is obese hypertensive use amlodipine and mirtazapine for hypertension Review of Systems REVIEW OF SYSTEMS: CONSTITUTIONAL: No fever, no malaise, no fatigue. HEENT: No recent visual problems or hearing problems. Denied any sore throat. CARDIOVASCULAR: No chest pain, orthopnea, PND, no palpitations, no syncope. PULMONARY: No shortness of breath, no cough, no hemoptysis. GASTROINTESTINAL: No diarrhea, no nausea, no vomiting. NEUROLOGICAL: No headaches, no weakness, no numbness. HEMATOLOGICAL: Denies any bleeding or petechiae. GENITOURINARY: Denies any burning micturition, frequency, or urgency. MUSCULOSKELETAL/RHEUMATOLOGICAL: Denies any joint pain, swelling, or any muscle pain. ENDOCRINE: Denies any polyuria or polydipsia. The rest of the 14-point review of systems is negative. Past Medical History Past Medical History: GERD/Reflux, Hyperlipidemia, Hypertension, Sleep A pnea/CPAP/BIPAP Additional Past Medical History / Comment(s): hx kidney stones, left kidney is undersized, no CPAP used, diverticulitis with rupture History of Any Multi-Drug Resistant Organisms: None Reported Past Surgical History: Orthopedic Surgery Additional Past Surgical History / Comment(s): bilat knee athroscopy (ACL reconstruction), nasal surgery, bowel resection with colostomy 09/29/20 Past Anesthesia/Blood Transfusion Reactions: Motion Sickness, Postoperative N ausea & Vomiting (PONV) Past Psychological History: No Psychological Hx Reported Smoking Status: Former smoker Past Alcohol Use History: Occasional Past Drug Use History: None Reported - Past Family History Mother Family Medical History: No Reported History Medications and Allergies Home Medications Medication Instructions Recorded Confirmed Type amLODIPine BESYLATE/BENAZEPRIL 1 cap PO DAILY 01/24/19 03/03/20 History [Lotrel 10-20 MG] Celecoxib [CeleBREX] 200 mg PO DAILY 09/28/19 03/03/20 History Multivitamins, Thera [Multivitamin 1 tab PO DAILY 09/28/19 03/03/20 History (formulary)] Armodafinil [Nuvigil] 200 mg PO QAM 03/03/20 03/03/20 History Atorvastatin [Lipitor] 20 mg PO DAILY 03/03/20 03/03/20 History Psyllium Husk 100% [Metamucil 6 gm PO DAILY 03/03/20 03/03/20 History Packet] Allergies Allergy/AdvReac Type Severity Reaction Status Date / Time No Known Allergies Allergy Verified 03/08/20 09:08 Physical Exam Vitals: Vital Signs Temp Pulse Resp BP Pulse Ox 03/08/20 14:05 93 16 144/82 97 03/08/20 13:50 84 17 137/80 95 03/08/20 13:35 89 17 155/70 95 03/08/20 13:20 82 17 172/80 95 03/08/20 13:05 78 17 130/63 95 03/08/20 12:50 98.6 F 93 16 135/100 94 L 03/08/20 09:55 105 H 16 142/81 97 03/08/20 09:39 96 134/86 99 03/08/20 09:08 97 F L 107 H 18 150/109 100 Intake and Output 03/07/20 03/08/20 03/08/20 22:59 06:59 14:59 Intake Total 1750 Output Total 100 Balance 1650 Intake: IV 1750 Output: Urine 50 Estimated Blood Loss 50 Other: Weight 108.862 kg PHYSICAL EXAMINATION: GENERAL: The patient is alert and oriented x3, not in any acute distress. Well developed, well nourished. HEENT: Pupils are round and equally reacting to light. EOMI. No scleral icterus. No conjunctival pallor. Normocephalic, atraumatic. No pharyngeal erythema. No thyromegaly. CARDIOVASCULAR: S1 and S2 present. No murmurs, rubs, or gallops. PULMONARY: Chest is clear to auscultation, no wheezing or crackles. ABDOMEN: Soft, surgical site area is clean MUSCULOSKELETAL: No joint swelling or deformity. EXTREMITIES: No cyanosis, clubbing, or pedal edema. NEUROLOGICAL: Gross neurological examination did not reveal any focal deficits. SKIN: No rashes. Assessment and Plan Plan: -Hypertension: Patient is expected to have perioperative hypotension because of that reason I'll hold off on BETSEY inhibitor symptoms renee will be continued -Gastroesophageal reflux disease -Hyperlipidemia continue with statin -Sleep apnea and uses CPAP machine which can be continued -Colostomy reversal: Pain management and DVT prophylaxis as per primary service
[2020-03-08] MEDS: D5-0.45% NACL WITH KCL 20MEQ/L 1,000 ML IV SCH (16:11)
[2020-03-08] MEDS: HEPARIN SODIUM,PORCINE 5,000 UNIT/ML 1 ML VIAL SQ SCH ×2 (16:29→23:45)
[2020-03-08] MEDS: FAMOTIDINE 20 MG/2 ML VIAL IV SCH (20:47)
[2020-03-09] MEDS: D5-0.45% NACL WITH KCL 20MEQ/L 1,000 ML IV SCH ×3 (02:10→18:13)
--- NOTE | 2020-03-09 07:27 | P.PN ---
Progress Note - Text Progress Note Date: 03/09/20 Postoperative day #1 status post colostomy reversal epidural catheter placed for postoperative analgesia, patient doing well epidural site okay, patient currently on combination of epidural infusion solution of Ropivacaine 0.0625% and Dilaudid 20 g per mL the infusion rate at 5 ml per hour , patient had no motor deficit epidural site okay , vital signs stable ,VAS 1 /10 , Assessment and plan= post operative day #1 patient doing well ,pain well controlled , there is no anesthesia related complications
[2020-03-09] MEDS: LACTATED RINGERS 1,000 ML IV SCH (07:37)
[2020-03-09] MEDS: ALVIMOPAN 12 MG CAPSULE PO SCH ×2 (07:47→20:22)
[2020-03-09] MEDS: amLODIPine 10 MG TAB PO SCH (07:48)
[2020-03-09] MEDS: FAMOTIDINE 20 MG/2 ML VIAL IV SCH ×2 (07:48→20:21)
[2020-03-09] MEDS: ATORVASTATIN 20 MG TAB PO SCH (07:48)
[2020-03-09] MEDS: HEPARIN SODIUM,PORCINE 5,000 UNIT/ML 1 ML VIAL SQ SCH ×3 (07:48→23:44)
[2020-03-09] MEDS: ARMODAFINIL 200 MG PO SCH (07:49)
--- NOTE | 2020-03-09 12:20 | P.PN ---
Subjective Progress Note Date: 03/09/20 CHIEF COMPLAINT: Diverticulitis HISTORY OF PRESENT ILLNESS: 35-year-old male who is status post reversal of colostomy, lysis of adhesions, and partial omentectomy. Postop day #1. Patient examined at the bedside Dr. Jamil. Patient states his pain is tolerable. Epidural is currently infusing at 5 mL an hour. He is tolerating a liquid diet. Denies nausea or vomiting. Denies passing flatus. PHYSICAL EXAM: VITAL SIGNS: Reviewed. GENERAL: Well-developed in no acute distress. HEENT: No sclera icterus. Extraocular movements grossly intact. Moist buccal mucosa. Head is atraumatic, normocephalic. ABDOMEN: Soft. Nondistended. Dressing clean dry and intact. NEUROLOGIC: Alert and oriented. Cranial nerves II through XII grossly intact. ASSESSMENT: 1. History of perforated diverticulitis, status post reversal of colostomy PLAN: -Pain control. Continue epidural -Continue Solis catheter -Continue current liquid diet. Await bowel function -Incentive spirometer -Activity as tolerated Nurse practitioner note has been reviewed by physician. Signing provider agrees with the documented findings, assessment, and plan of care. Objective - Vital Signs Vital signs: Vital Signs Temp 98.1 F 03/09/20 07:00 Pulse 72 03/09/20 07:48 Resp 17 03/09/20 07:48 BP 111/68 03/09/20 07:00 Pulse Ox 97 03/09/20 07:00 Intake & Output 03/08/20 03/09/20 03/09/20 18:59 06:59 18:59 Intake Total 1750 450 Output Total 150 600 Balance 1600 -150 Weight 108.862 kg Intake: IV 1750 Oral 450 Output: Urine 100 600 Estimated Blood Loss 50 Other: Voiding Method Indwelling Catheter Indwelling Catheter Indwelling Catheter
--- NOTE | 2020-03-09 18:05 | P.PN ---
Subjective no overnight events patient did not move his bowel get but patient is feeling much better. Constitutional: Denied any fatigue denied any fever. Cardio vascular: denied any chest pain, palpitations Gastrointestinal denied any nausea vomiting Pulmonary: Denied any shortness of breath cough Neurologic denied any new focal deficits All inpatient medications were reviewed and appropriate changes in these medications as dictated in the interval history and assessment and plan. Objective - Vital Signs Vital signs: Vital Signs Temp 97.8 F 03/09/20 14:45 Pulse 79 03/09/20 14:45 Resp 18 03/09/20 14:45 BP 120/75 03/09/20 14:45 Pulse Ox 99 03/09/20 14:45 Intake & Output 03/08/20 03/09/20 03/09/20 18:59 06:59 18:59 Intake Total 1750 450 Output Total 150 600 700 Balance 1600 -150 -700 Weight 108.862 kg Intake: IV 1750 Oral 450 Output: Urine 100 600 700 Estimated Blood Loss 50 Other: Voiding Method Indwelling Catheter Indwelling Catheter Indwelling Catheter - Exam PHYSICAL EXAMINATION: GENERAL: The patient is alert and oriented x3, not in any acute distress. Well developed, well nourished. HEENT: Pupils are round and equally reacting to light. EOMI. No scleral icterus. No conjunctival pallor. Normocephalic, atraumatic. No pharyngeal erythema. No thyromegaly. CARDIOVASCULAR: S1 and S2 present. No murmurs, rubs, or gallops. PULMONARY: Chest is clear to auscultation, no wheezing or crackles. ABDOMEN: Soft, surgical site area is clean MUSCULOSKELETAL: No joint swelling or deformity. EXTREMITIES: No cyanosis, clubbing, or pedal edema. NEUROLOGICAL: Gross neurological examination did not reveal any focal deficits. SKIN: No rashes. Assessment and Plan Plan: -Hypertension: Patient is expected to have perioperative hypotension because of that reason I'll hold off on BETSEY inhibitor, calcium renee was continued and patient blood pressure is well controlled at this time. -Gastroesophageal reflux disease -Hyperlipidemia continue with statin -Sleep apnea and uses CPAP machine which can be continued -Colostomy reversal: Pain management and DVT prophylaxis as per primary service
[2020-03-09] MEDS: ROPIVACAINE 250 MG, HYDROMORPHONE (PF) 5 MG in SODIUM CHLORIDE 0.9% 200 ML EPIDURAL PRN (23:36)
[2020-03-10] MEDS: D5-0.45% NACL WITH KCL 20MEQ/L 1,000 ML IV SCH ×4 (01:37→19:47)
[2020-03-10] MEDS: LACTATED RINGERS 1,000 ML IV SCH ×2 (04:19→19:49)
[2020-03-10 06:13] LABS: Basophils % (A) 0 %; Eosinophils # (A) 0.1 k/uL (0-0.7); Eosinophils % (A) 1 %; HCT 37.8 % (39.0-53.0); HGB 12.8 gm/dL (13.0-17.5); Lymphocytes # (A) 1.8 k/uL (1.0-4.8); Lymphocytes % (A) 21 %; MCH 30.1 pg (25.0-35.0); MCHC 33.8 g/dL (31.0-37.0); Mean Platelet Volume 7.5; Monocytes # (A) 0.6 k/uL (0-1.0); Monocytes % (A) 7 %; Neutrophils # (A) 5.6 k/uL (1.3-7.7); Neutrophils % (A) 68 %; Platelet Count 157 k/uL (150-450); RBC 4.25 m/uL (4.30-5.90); RDW 12.9 % (11.5-15.5); WBC 8.2 k/uL (3.8-10.6)
[2020-03-10 06:28] LABS: ALT 27 U/L (4-49); AST 24 U/L (17-59); African American GFR (CKD) >90 (>60 ml/min/1.73 sqM); Alkaline Phosphatase 90 U/L (38-126); Anion Gap 4 mmol/L; Blood Urea Nitrogen 12 mg/dL (9-20); Calcium 8.2 mg/dL (8.4-10.2); Carbon Dioxide 28 mmol/L (22-30); Chloride 102 mmol/L (98-107); Glucose 101 mg/dL (74-99); Non-African American GFR(CKD) >90 (>60 ml/min/1.73 sqM); Potassium 4.4 mmol/L (3.5-5.1); Sodium 134 mmol/L (137-145); Total Bilirubin 0.3 mg/dL (0.2-1.3); Total Protein 5.5 g/dL (6.3-8.2)
--- NOTE | 2020-03-10 06:56 | P.PN ---
Progress Note - Text 03/10/20 640am 35-year-old male status post colostomy reversal by Dr. Wesley. Patient has an epidural catheter for postop pain control, solution is running at 6 mL an hour with a VAS score of 1. Patient has no motor or sensory deficit, has been ambulating with no problems
--- NOTE | 2020-03-10 07:59 | P.PN ---
Subjective Progress Note Date: 03/10/20 CHIEF COMPLAINT: Diverticulitis HISTORY OF PRESENT ILLNESS: 35-year-old male who is status post reversal of colostomy, lysis of adhesions, and partial omentectomy. Postop day #2. Patient examined at the bedside Dr. Jamil. Patient states his pain is tolerable. Epidural is currently infusing at 6 mL an hour. He is tolerating a liquid diet. Denies nausea or vomiting. He is passing flatus this morning. PHYSICAL EXAM: VITAL SIGNS: Reviewed. GENERAL: Well-developed in no acute distress. HEENT: No sclera icterus. Extraocular movements grossly intact. Moist buccal mucosa. Head is atraumatic, normocephalic. ABDOMEN: Soft. Nondistended. Dressing clean dry and intact. NEUROLOGIC: Alert and oriented. Cranial nerves II through XII grossly intact. ASSESSMENT: 1. History of perforated diverticulitis, status post reversal of colostomy PLAN: -Pain control. Continue epidural. Will discontinue tomorrow -Continue Solis catheter -Advance diet to full liquids -Incentive spirometer -Activity as tolerated Nurse practitioner note has been reviewed by physician. Signing provider agrees with the documented findings, assessment, and plan of care. Objective - Vital Signs Vital signs: Vital Signs Temp 99.2 F 03/10/20 01:50 Pulse 90 03/10/20 01:50 Resp 18 03/10/20 01:50 BP 109/72 03/10/20 01:50 Pulse Ox 96 03/10/20 01:50 Intake & Output 03/09/20 03/10/20 03/10/20 18:59 06:59 18:59 Intake Total 79.417 1469.9 Output Total 700 1250 Balance -620.583 219.9 Intake: Intake, IV Titration 79.417 1469.9 Amount D5-0.45% NaCl with KCl 1437.5 20Meq/l 1,000 ml @ 125 mls/hr IV .Q8H [facility] Rx#: [id number] Ropivacaine 250 mg 79.417 32.4 Hydromorphone (Pf) 5 mg In Sodium Chloride 0.9% 200 ml @ Per Protocol EPIDURAL .Q0M PRN Rx#: [id number] Output: Urine 700 1250 Other: Voiding Method Indwelling Catheter Indwelling Catheter - Labs CBC & Chem 7: 03/10/20 05:45 03/10/20 05:45 Labs: Abnormal Lab Results - Last 24 Hours (Table) 03/10/20 03/10/20 Range/Units 05:45 05:45 RBC 4.25 L (4.30-5.90) m/uL Hgb 12.8 L (13.0-17.5) gm/dL Hct 37.8 L (39.0-53.0) % Sodium 134 L (137-145) mmol/L Glucose 101 H (74-99) mg/dL Calcium 8.2 L (8.4-10.2) mg/dL Total Protein 5.5 L (6.3-8.2) g/dL Albumin 3.0 L (3.5-5.0) g/dL
[2020-03-10] MEDS: HEPARIN SODIUM,PORCINE 5,000 UNIT/ML 1 ML VIAL SQ SCH ×3 (08:56→22:16)
[2020-03-10] MEDS: FAMOTIDINE 20 MG/2 ML VIAL IV SCH ×2 (08:56→19:47)
[2020-03-10] MEDS: amLODIPine 10 MG TAB PO SCH (08:57)
[2020-03-10] MEDS: ALVIMOPAN 12 MG CAPSULE PO SCH ×2 (08:57→19:47)
[2020-03-10] MEDS: ATORVASTATIN 20 MG TAB PO SCH (08:57)
[2020-03-10] MEDS: ARMODAFINIL 200 MG PO SCH (09:43)
--- NOTE | 2020-03-10 15:07 | P.PN ---
Subjective no overnight events patient did not move his bowel get but patient is feeling much better. 03/10/2020 She is passing gas pain is fairly controlled. Serum sodium is 134. Blood pressure is stable within normal limits Constitutional: Denied any fatigue denied any fever. Cardio vascular: denied any chest pain, palpitations Gastrointestinal denied any nausea vomiting Pulmonary: Denied any shortness of breath cough Neurologic denied any new focal deficits All inpatient medications were reviewed and appropriate changes in these medications as dictated in the interval history and assessment and plan. Objective - Vital Signs Vital signs: Vital Signs Temp 99.4 F 03/10/20 14:15 Pulse 98 03/10/20 14:15 Resp 16 03/10/20 14:15 BP 120/79 03/10/20 14:15 Pulse Ox 95 03/10/20 14:15 Intake & Output 03/09/20 03/10/20 03/10/20 18:59 06:59 18:59 Intake Total 79.417 1469.9 1400 Output Total 700 1250 550 Balance -620.583 219.9 850 Intake: Intake, IV Titration 79.417 1469.9 1000 Amount D5-0.45% NaCl with KCl 1437.5 1000 20Meq/l 1,000 ml @ 125 mls/hr IV .Q8H [facility] Rx#: [id number] Ropivacaine 250 mg 79.417 32.4 Hydromorphone (Pf) 5 mg In Sodium Chloride 0.9% 200 ml @ Per Protocol EPIDURAL .Q0M PRN Rx#: [id number] Oral 400 Output: Urine 700 1250 550 Other: Voiding Method Indwelling Catheter Indwelling Catheter Indwelling Catheter - Exam PHYSICAL EXAMINATION: GENERAL: The patient is alert and oriented x3, not in any acute distress. Well developed, well nourished. HEENT: Pupils are round and equally reacting to light. EOMI. No scleral icterus. No conjunctival pallor. Normocephalic, atraumatic. No pharyngeal erythema. No thyromegaly. CARDIOVASCULAR: S1 and S2 present. No murmurs, rubs, or gallops. PULMONARY: Chest is clear to auscultation, no wheezing or crackles. ABDOMEN: Soft, surgical site area is clean MUSCULOSKELETAL: No joint swelling or deformity. EXTREMITIES: No cyanosis, clubbing, or pedal edema. NEUROLOGICAL: Gross neurological examination did not reveal any focal deficits. SKIN: No rashes. - Labs CBC & Chem 7: 03/10/20 05:45 03/10/20 05:45 Labs: Abnormal Lab Results - Last 24 Hours (Table) 03/10/20 03/10/20 Range/Units 05:45 05:45 RBC 4.25 L (4.30-5.90) m/uL Hgb 12.8 L (13.0-17.5) gm/dL Hct 37.8 L (39.0-53.0) % Sodium 134 L (137-145) mmol/L Glucose 101 H (74-99) mg/dL Calcium 8.2 L (8.4-10.2) mg/dL Total Protein 5.5 L (6.3-8.2) g/dL Albumin 3.0 L (3.5-5.0) g/dL Assessment and Plan Plan: -Hypertension: Patient is expected to have perioperative hypotension because of that reason I'll hold off on BETSEY inhibitor, calcium renee was continued and patient blood pressure is well controlled at this time. 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
[2020-03-10] MEDS: ONDANSETRON 4 MG/2 ML VIAL IVP PRN ×2 (18:22→22:16)
[2020-03-11] MEDS: ONDANSETRON 4 MG/2 ML VIAL IVP PRN ×2 (02:06→16:23)
[2020-03-11] MEDS: D5-0.45% NACL WITH KCL 20MEQ/L 1,000 ML IV SCH ×2 (03:35→16:17)
[2020-03-11] MEDS: ALVIMOPAN 12 MG CAPSULE PO SCH ×2 (07:53→20:48)
[2020-03-11] MEDS: HEPARIN SODIUM,PORCINE 5,000 UNIT/ML 1 ML VIAL SQ SCH ×3 (07:53→23:04)
[2020-03-11] MEDS: ATORVASTATIN 20 MG TAB PO SCH (07:53)
[2020-03-11] MEDS: FAMOTIDINE 20 MG/2 ML VIAL IV SCH (07:53)
[2020-03-11] MEDS: amLODIPine 10 MG TAB PO SCH (07:53)
[2020-03-11] MEDS: ARMODAFINIL 200 MG PO SCH (07:54)
--- NOTE | 2020-03-11 13:15 | P.PN ---
Subjective Progress Note Date: 03/11/20 Principal diagnosis: Colostomy Patient doing well today. Passing flatus. No bowel movement. T-max 99.4. No labs. Tolerating full liquids. Objective - Vital Signs Vital signs: Vital Signs Temp 98.1 F 03/11/20 07:00 Pulse 97 03/11/20 08:00 Resp 16 03/11/20 08:00 BP 137/73 03/11/20 07:00 Pulse Ox 96 03/11/20 07:00 Intake & Output 03/10/20 03/11/20 03/11/20 18:59 06:59 18:59 Intake Total 1400 375 Output Total 2350 600 1000 Balance -950 -225 -1000 Intake: Intake, IV Titration 1000 375 Amount D5-0.45% NaCl with KCl 1000 375 20Meq/l 1,000 ml @ 125 mls/hr IV .Q8H [facility] Rx#: [id number] Oral 400 Output: Urine 2350 600 1000 Uretheral (Solis) 1000 Other: Voiding Method Indwelling Catheter Indwelling Catheter Indwelling Catheter - Exam Abdomen: Soft, nondistended, minimal incisional tenderness, dressing clean and dry - Labs CBC & Chem 7: 03/10/20 05:45 03/10/20 05:45 Assessment and Plan (1) Diverticulitis of intestine with abscess Narrative/Plan: Patient doing fairly well. Continue full liquids. Remove Solis and epidural today. Ambulate. Current Visit: No Status: Acute Code(s): K57.80 - DVTRCLI OF INTEST, PART UNSP, W PERF AND ABSCESS W/O BLEED SNOMED Code(s): 027090750
--- NOTE | 2020-03-11 16:03 | P.PN ---
Progress Note - Text Progress Note Date: 03/11/20 Postoperative day # 3 status post colostomy reversal epidural catheter placed for postoperative analgesia, patient doing well epidural site okay, the epidural catheter DC'd today Pain well controlled Assessment and plan= post operative day #3 patient doing well ,pain well controlled , there is no anesthesia related complications
[2020-03-11] MEDS: HYDROcodone/APAP 5-325MG 1 EACH TAB PO PRN (16:17)
[2020-03-11] MEDS: KETOROLAC 30 MG/ML 1 ML VIAL IVP SCH ×2 (16:18→23:03)
--- NOTE | 2020-03-11 16:22 | P.PN ---
Subjective no overnight events patient did not move his bowel get but patient is feeling much better. 03/10/2020 She is passing gas pain is fairly controlled. Serum sodium is 134. Blood pressure is stable within normal limits 03/11/2020 Leukocytosis improving, oxygen saturations are better blood pressure is low normal. Constitutional: Denied any fatigue denied any fever. Cardio vascular: denied any chest pain, palpitations Gastrointestinal denied any nausea vomiting Pulmonary: Denied any shortness of breath cough Neurologic denied any new focal deficits All inpatient medications were reviewed and appropriate changes in these medications as dictated in the interval history and assessment and plan. Objective - Vital Signs Vital signs: Vital Signs Temp 98.4 F 03/11/20 15:00 Pulse 89 03/11/20 15:00 Resp 16 03/11/20 15:00 BP 145/84 03/11/20 15:00 Pulse Ox 94 L 03/11/20 15:00 Intake & Output 03/10/20 03/11/20 03/11/20 18:59 06:59 18:59 Intake Total 1400 375 Output Total 2350 600 1000 Balance -950 -225 -1000 Intake: Intake, IV Titration 1000 375 Amount D5-0.45% NaCl with KCl 1000 375 20Meq/l 1,000 ml @ 125 mls/hr IV .Q8H [facility] Rx#: [id number] Oral 400 Output: Urine 2350 600 1000 Uretheral (Solis) 1000 Other: Voiding Method Indwelling Catheter Indwelling Catheter Indwelling Catheter - Exam PHYSICAL EXAMINATION: GENERAL: The patient is alert and oriented x3, not in any acute distress. Well developed, well nourished. HEENT: Pupils are round and equally reacting to light. EOMI. No scleral icterus. No conjunctival pallor. Normocephalic, atraumatic. No pharyngeal erythema. No thyromegaly. CARDIOVASCULAR: S1 and S2 present. No murmurs, rubs, or gallops. PULMONARY: Chest is clear to auscultation, no wheezing or crackles. ABDOMEN: Soft, surgical site area is clean MUSCULOSKELETAL: No joint swelling or deformity. EXTREMITIES: No cyanosis, clubbing, or pedal edema. NEUROLOGICAL: Gross neurological examination did not reveal any focal deficits. SKIN: No rashes. - Labs CBC & Chem 7: 03/10/20 05:45 03/10/20 05:45 Assessment and Plan Plan: -Hypertension: Patient is expected to have perioperative hypotension because of that reason I'll hold off on BETSEY inhibitor, calcium renee was continued and patient blood pressure is well controlled at this time. 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
[2020-03-11] MEDS: FAMOTIDINE 20 MG TAB PO SCH (20:48)
[2020-03-11] MEDS: HYDROmorphone 1 MG/ML 1 ML SYRINGE IVP PRN (20:48)
[2020-03-12] MEDS: D5-0.45% NACL WITH KCL 20MEQ/L 1,000 ML IV SCH ×4 (03:31→23:27)
[2020-03-12] MEDS: HYDROmorphone 1 MG/ML 1 ML SYRINGE IVP PRN ×4 (03:31→20:07)
[2020-03-12] MEDS: KETOROLAC 30 MG/ML 1 ML VIAL IVP SCH ×4 (05:16→23:26)
[2020-03-12] MEDS: LACTATED RINGERS 1,000 ML IV SCH (05:18)
[2020-03-12 07:15] LABS: Basophils % (A) 0 %; Eosinophils # (A) 0.1 k/uL (0-0.7); Eosinophils % (A) 1 %; Lymphocytes # (A) 1.8 k/uL (1.0-4.8); Lymphocytes % (A) 16 %; MCH 28.8 pg (25.0-35.0); MCHC 33.2 g/dL (31.0-37.0); MCV 86.5 fL (80.0-100.0); Mean Platelet Volume 7.3; Monocytes # (A) 0.8 k/uL (0-1.0); Monocytes % (A) 7 %; Neutrophils # (A) 8.6 k/uL (1.3-7.7); Neutrophils % (A) 74 %; Platelet Count 245 k/uL (150-450); RBC 4.86 m/uL (4.30-5.90); RDW 12.6 % (11.5-15.5); WBC 11.5 k/uL (3.8-10.6)
[2020-03-12 07:25] LABS: African American GFR (CKD) >90 (>60 ml/min/1.73 sqM); Anion Gap 6 mmol/L; Blood Urea Nitrogen 14 mg/dL (9-20); Calcium 8.9 mg/dL (8.4-10.2); Carbon Dioxide 29 mmol/L (22-30); Chloride 99 mmol/L (98-107); Glucose 125 mg/dL (74-99); Non-African American GFR(CKD) >90 (>60 ml/min/1.73 sqM); Potassium 4.1 mmol/L (3.5-5.1); Sodium 134 mmol/L (137-145)
[2020-03-12] MEDS: ALVIMOPAN 12 MG CAPSULE PO SCH ×2 (07:55→20:07)
[2020-03-12] MEDS: HEPARIN SODIUM,PORCINE 5,000 UNIT/ML 1 ML VIAL SQ SCH ×3 (07:55→23:26)
[2020-03-12] MEDS: amLODIPine 10 MG TAB PO SCH (07:56)
[2020-03-12] MEDS: FAMOTIDINE 20 MG TAB PO SCH ×2 (07:56→20:07)
[2020-03-12] MEDS: ATORVASTATIN 20 MG TAB PO SCH (07:56)
--- NOTE | 2020-03-12 10:56 | P.PN ---
Subjective Progress Note Date: 03/12/20 Principal diagnosis: Colostomy Patient doing well today. Epidural and Solis catheter were removed yesterday. Tolerating diet. No nausea or vomiting. 2 bowel movements. Pain improved. Objective - Vital Signs Vital signs: Vital Signs Temp 98.9 F 03/12/20 07:00 Pulse 87 03/12/20 07:15 Resp 17 03/12/20 07:15 BP 143/83 03/12/20 07:00 Pulse Ox 95 03/12/20 07:00 Intake & Output 03/11/20 03/12/20 03/12/20 18:59 06:59 18:59 Intake Total 350 Output Total 1700 776 476 Balance -169942 436 Intake: Intake, IV Titration 350 Amount D5-0.45% NaCl with KCl 350 20Meq/l 1,000 ml @ 125 mls/hr IV .Q8H [facility] Rx#: [id number] Output: Urine 1700 775 475 Uretheral (Solis) 1700 Stool 1 1 Other: Voiding Method Indwelling Catheter # Voids 0 1 1 - Exam Abdomen: Soft, nondistended, incision clean and dry, minimal tenderness - Labs CBC & Chem 7: 03/12/20 06:46 03/12/20 06:46 Labs: Abnormal Lab Results - Last 24 Hours (Table) 03/12/20 03/12/20 Range/Units 06:46 06:46 WBC 11.5 H (3.8-10.6) k/uL Neutrophils # 8.6 H (1.3-7.7) k/uL Sodium 134 L (137-145) mmol/L Glucose 125 H (74-99) mg/dL Assessment and Plan (1) Diverticulitis of intestine with abscess Narrative/Plan: Will increase diet further. Ambulate. Possible discharge tomorrow. Current Visit: No Status: Acute Code(s): K57.80 - DVTRCLI OF INTEST, PART UNSP, W PERF AND ABSCESS W/O BLEED SNOMED Code(s): 760779647
[2020-03-12] MEDS: ARMODAFINIL 200 MG PO SCH (12:42)
--- NOTE | 2020-03-12 13:02 | P.PN ---
Subjective no overnight events patient did not move his bowel get but patient is feeling much better. 03/10/2020 She is passing gas pain is fairly controlled. Serum sodium is 134. Blood pressure is stable within normal limits 03/11/2020 Leukocytosis improving, oxygen saturations are better blood pressure is low normal. 03/12/2020 Issue and that did move his bowel was started on diet advancing as tolerated the patient's epidural was discontinued yesterday Constitutional: Denied any fatigue denied any fever. Cardio vascular: denied any chest pain, palpitations Gastrointestinal denied any nausea vomiting Pulmonary: Denied any shortness of breath cough Neurologic denied any new focal deficits All inpatient medications were reviewed and appropriate changes in these medications as dictated in the interval history and assessment and plan. Objective - Vital Signs Vital signs: Vital Signs Temp 98.9 F 03/12/20 07:00 Pulse 87 03/12/20 07:15 Resp 17 03/12/20 07:15 BP 143/83 03/12/20 07:00 Pulse Ox 95 03/12/20 07:00 Intake & Output 03/11/20 03/12/20 03/12/20 18:59 06:59 18:59 Intake Total 350 Output Total 1700 776 476 Balance -1700 -426 -476 Intake: Intake, IV Titration 350 Amount D5-0.45% NaCl with KCl 350 20Meq/l 1,000 ml @ 125 mls/hr IV .Q8H [facility] Rx#: [id number] Output: Urine 1700 775 475 Uretheral ([facility]) 1700 Stool 1 1 Other: Voiding Method Indwelling Catheter # Voids 0 1 1 - Exam PHYSICAL EXAMINATION: GENERAL: The patient is alert and oriented x3, not in any acute distress. Well developed, well nourished. HEENT: Pupils are round and equally reacting to light. EOMI. No scleral icterus. No conjunctival pallor. Normocephalic, atraumatic. No pharyngeal erythema. No thyromegaly. CARDIOVASCULAR: S1 and S2 present. No murmurs, rubs, or gallops. PULMONARY: Chest is clear to auscultation, no wheezing or crackles. ABDOMEN: Soft, surgical site area is clean MUSCULOSKELETAL: No joint swelling or deformity. EXTREMITIES: No cyanosis, clubbing, or pedal edema. NEUROLOGICAL: Gross neurological examination did not reveal any focal deficits. SKIN: No rashes. 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
[2020-03-12 15:29] VITALS: RESP 16
[2020-03-12] MEDS: LISINOPRIL 20 MG TAB PO SCH (16:21)
[2020-03-13] MEDS: HYDROmorphone 1 MG/ML 1 ML SYRINGE IVP PRN ×3 (01:27→08:09)
[2020-03-13] MEDS: KETOROLAC 30 MG/ML 1 ML VIAL IVP SCH (05:11)
[2020-03-13] MEDS: LACTATED RINGERS 1,000 ML IV SCH (05:12)
[2020-03-13 07:30] VITALS: BP 147/87; PULSE 74; TEMP 98.2
[2020-03-13] MEDS: amLODIPine 10 MG TAB PO SCH (08:03)
[2020-03-13] MEDS: ATORVASTATIN 20 MG TAB PO SCH (08:03)
[2020-03-13] MEDS: LISINOPRIL 20 MG TAB PO SCH (08:03)
[2020-03-13] MEDS: HEPARIN SODIUM,PORCINE 5,000 UNIT/ML 1 ML VIAL SQ SCH (08:03)
[2020-03-13] MEDS: D5-0.45% NACL WITH KCL 20MEQ/L 1,000 ML IV SCH (08:03)
[2020-03-13] MEDS: FAMOTIDINE 20 MG TAB PO SCH (08:03)
[2020-03-13] MEDS: ALVIMOPAN 12 MG CAPSULE PO SCH (08:03)
[2020-03-13] MEDS: ARMODAFINIL 200 MG PO SCH (10:03)
--- NOTE | 2020-03-13 10:33 | P.DS ---
Providers Date of admission: 03/08/20 08:55 Expected date of discharge: 03/13/20 Attending physician: Ari Jamil Consults: 03/08/20 12:57 Consult Physician Routine Consulting Provider: Deondre Waldrop Consult Reason/Comments: Medical management Do you want consulting provider notified?: Yes Primary care physician: Erica [facility] Course: This a 35-year-old male who underwent reversal of colostomy. Patient did well postoperatively. Please hospital chart for details. On the day of discharge his abdomen was soft his incision site is clean dry intact. Procedures: Reversal of colostomy Patient Condition at Discharge: Good Plan - Discharge Summary Discharge Rx Participant: Yes New Discharge Prescriptions: New Hydrocodone/Acetaminophen [Wasco 5-325] 1 tab PO Q6HR PRN #10 tab PRN Reason: Pain No Action amLODIPine BESYLATE/BENAZEPRIL [Lotrel 10-20 MG] 1 cap PO DAILY Multivitamins, Thera [Multivitamin (formulary)] 1 tab PO DAILY Celecoxib [CeleBREX] 200 mg PO DAILY Psyllium Husk 100% [Metamucil Packet] 6 gm PO DAILY Atorvastatin [Lipitor] 20 mg PO DAILY Armodafinil [Nuvigil] 200 mg PO QAM Discharge Medication List amLODIPine BESYLATE/BENAZEPRIL [Lotrel 10-20 MG] 1 cap PO DAILY 01/24/19 [History] Celecoxib [CeleBREX] 200 mg PO DAILY 09/28/19 [History] Multivitamins, Thera [Multivitamin (formulary)] 1 tab PO DAILY 09/28/19 [History] Armodafinil [Nuvigil] 200 mg PO QAM 03/03/20 [History] Atorvastatin [Lipitor] 20 mg PO DAILY 03/03/20 [History] Psyllium Husk 100% [Metamucil Packet] 6 gm PO DAILY 03/03/20 [History] Hydrocodone/Acetaminophen [Wasco 5-325] 1 tab PO Q6HR PRN #10 tab 03/10/20 [Rx] Follow up Appointment(s)/Referral(s): Ari Jamil MD [STAFF PHYSICIAN] - 1 Week Activity/Diet/Wound Care/Special Instructions: Wants d/c Rx No driving while taking Wasco No lifting over 10 pounds You may shower. No soaking or tub baths Very light activity until you are reevaluated at your follow up appointment with your surgeon
[2020-03-13] MEDS: HYDROcodone/APAP 5-325MG 1 EACH TAB PO PRN (11:41)
--- NOTE | 2020-03-13 12:14 | P.PN ---
Subjective Progress Note Date: 03/13/20 Principal diagnosis: 03/09/2020 no overnight events patient did not move his bowel get but patient is feeling much better. 03/10/2020 She is passing gas pain is fairly controlled. Serum sodium is 134. Blood pressure is stable within normal limits 03/11/2020 Leukocytosis improving, oxygen saturations are better blood pressure is low normal. 03/12/2020 Issue and that did move his bowel was started on diet advancing as tolerated the patient's epidural was discontinued yesterday Constitutional: Denied any fatigue denied any fever. Cardio vascular: denied any chest pain, palpitations Gastrointestinal denied any nausea vomiting Pulmonary: Denied any shortness of breath cough Neurologic denied any new focal deficits All inpatient medications were reviewed and appropriate changes in these medications as dictated in the interval history and assessment and plan. 03/13/2020 Patient is seen and evaluated in follow-up with no acute overnight issues noted. Patient continues to have some generalized discomfort but has been up and moving around with no difficulties. Patient is currently on a low fiber diet and advancing slowly as tolerated. Patient admits to passing gas and is having bowel movements. Patient is status post colostomy reversal with Dr. Jamil. Patient states he is being discharged today. Patient will continue on antihypertensive medications and instructed to follow-up with primary care provider along with surgery in the outpatient setting. No reports of chest pain, shortness of breath, or palpitations. Patient is afebrile. No reports of nausea or vomiting and patient is tolerating diet. Objective - Vital Signs Vital signs: Vital Signs Temp 98.2 F 03/13/20 07:01 Pulse 74 03/13/20 07:01 Resp 16 03/13/20 07:01 BP 147/87 03/13/20 07:01 Pulse Ox 97 03/13/20 07:01 Intake & Output 03/12/20 03/13/20 03/13/20 18:59 06:59 18:59 Intake Total 1400 1300 Output Total 477 Balance 923 1300 Intake: Intake, IV Titration 1000 1300 Amount D5-0.45% NaCl with KCl 1000 1300 20Meq/l 1,000 ml @ 125 mls/hr IV .Q8H [facility] Rx#: [id number] Oral 400 Output: Urine 475 Stool 2 Other: Voiding Method Toilet Toilet # Voids 1 2 # Bowel Movements 1 - Exam GENERAL: The patient is alert and oriented x3, not in any acute distress. Well developed, well nourished. HEENT: Pupils are round and equally reacting to light. EOMI. No scleral icterus. No conjunctival pallor. Normocephalic, atraumatic. No pharyngeal erythema. No thyromegaly. CARDIOVASCULAR: S1 and S2 present. No murmurs, rubs, or gallops. PULMONARY: Chest is clear to auscultation, no wheezing or crackles. ABDOMEN: Soft, nontender, surgical site area is dry and intact. MUSCULOSKELETAL: No joint swelling or deformity. EXTREMITIES: No cyanosis, clubbing, or pedal edema. NEUROLOGICAL: Gross neurological examination did not reveal any focal deficits. SKIN: No rashes. 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 Patient is scheduled to be discharged today and will follow-up with surgery along with primary care provider in the outpatient setting. Patient is currently on low fiber diet and instructed to advance slowly as tolerated in the outpatient setting. Will follow along with surgery during hospitalization. Anticipate susan zamudio today.
== END 2020-03-13 12:10 | disposition home or self-care (01) | DRG 330 ==
LOC: 2ORMAIN 08:55 → 4SSUR 14:21
PROVIDERS: ADMIT Surgery; ATTEND Surgery
PROC: 0DBU0ZZ Excision of Omentum, Open Approach (ICD-10-PCS; 2020-03-08)
PROC: 0DBN0ZZ Excision of Sigmoid Colon, Open Approach (ICD-10-PCS; principal; 2020-03-08 10:25)
DX: Z43.3 Encounter for attention to colostomy (principal); E22.2 Syndrome of inappropriate secretion of antidiuretic hormone; K21.9 Gastro-esophageal reflux disease without esophagitis; I10 Essential (primary) hypertension; E78.5 Hyperlipidemia, unspecified; G47.30 Sleep apnea, unspecified; E66.9 Obesity, unspecified; D72.829 Elevated white blood cell count, unspecified; Z68.35 Body mass index [BMI] 35.0-35.9, adult; Z79.899 Other long term (current) drug therapy; Z79.1 Long term (current) use of non-steroidal anti-inflammatories (NSAID); Z87.19 Personal history of other diseases of the digestive system; Z87.442 Personal history of urinary calculi; Z90.49 Acquired absence of other specified parts of digestive tract; Z98.890 Other specified postprocedural states; Z87.891 Personal history of nicotine dependence
CPT/HCPCS: 80048; 80053; 85025; 86850; 86900; 86901; 88304; 88305

== ENCOUNTER → 2020-05-17 | Outpatient (CLI) | payer OTHER ==
[2020-05-17 12:38] LABS: Basophils % (A) 1 %; Eosinophils # (A) 0.2 k/uL (0-0.7); Eosinophils % (A) 2 %; HCT 45.3 % (39.0-53.0); Lymphocytes # (A) 2.1 k/uL (1.0-4.8); Lymphocytes % (A) 29 %; MCH 29.2 pg (25.0-35.0); MCHC 33.2 g/dL (31.0-37.0); MCV 88.1 fL (80.0-100.0); Mean Platelet Volume 7.6; Monocytes # (A) 0.3 k/uL (0-1.0); Monocytes % (A) 4 %; Neutrophils # (A) 4.4 k/uL (1.3-7.7); Neutrophils % (A) 62 %; Platelet Count 206 k/uL (150-450); RBC 5.15 m/uL (4.30-5.90); RDW 13.2 % (11.5-15.5); WBC 7.1 k/uL (3.8-10.6)
== END | disposition home or self-care (01) ==
LOC: LABPAT 10:48
PROVIDERS: ATTEND Surgery
DX: Z01.818 Encounter for other preprocedural examination (principal); D64.9 Anemia, unspecified; F17.210 Nicotine dependence, cigarettes, uncomplicated; K43.9 Ventral hernia without obstruction or gangrene; K43.2 Incisional hernia without obstruction or gangrene
CPT/HCPCS: 36415; 84132; 85025

== ENCOUNTER 2020-05-23 05:48 | Day surgery (SDC) | payer OTHER ==
[2020-05-17 09:37] VITALS: BMI 38.4
[~2020-05-23 05:48] MED LIST changes: +ACETAMINOPHEN TAB 500 MG TAB PO ONE; -HYDROmorphone 0.5 MG/0.5 ML SYRINGE IVP PRN; +LACTATED RINGERS 1,000 ML IV SCH; -metroNIDAZOLE-NS PMX 500 MG in SALINE 1 100ML.BAG IVPB ONE
[2020-05-23] MEDS ORDERED: HEPARIN SODIUM,PORCINE 5,000 UNIT/ML 1 ML VIAL SQ ONE (06:00)
[2020-05-23] MEDS ORDERED: ONDANSETRON 4 MG/2 ML VIAL ONE (06:26)
[2020-05-23] MEDS ORDERED: ACETAMINOPHEN TAB 500 MG TAB ONE (06:26)
[2020-05-23] MEDS ORDERED: HEPARIN SODIUM,PORCINE 5,000 UNIT/ML 1 ML VIAL ONE (06:26)
[2020-05-23] MEDS ORDERED: SCOPOLAMINE 1.5MG/72HR PATCH TRANSDERM ONE (06:50)
[2020-05-23] MEDS ORDERED: PROPOFOL 10 MG/ML 20 ML VIAL IV ONE (07:44)
[2020-05-23] MEDS ORDERED: MIDAZOLAM 2 MG/2 ML VIAL ONE (07:44)
[2020-05-23] MEDS ORDERED: fentaNYL (PF) 50 MCG/ML 2 ML AMP ONE (07:44)
[2020-05-23] MEDS ORDERED: SUCCINYLCHOLINE CHLORIDE 100 MG/5 ML SYR IV ONE (07:44)
[2020-05-23] MEDS ORDERED: KETOROLAC 30 MG/ML 1 ML VIAL ONE (07:44)
[2020-05-23] MEDS ORDERED: HYDROmorphone (PF) 1 MG/ML ONE (07:44)
[2020-05-23] MEDS ORDERED: GLYCOPYRROLATE 0.2 MG/ML 2 ML VIAL ONE (07:44)
[2020-05-23] MEDS ORDERED: LIDOCAINE 1% INJ 10MG/ML (20 ML MDV) ONE (07:44)
[2020-05-23] MEDS ORDERED: NEOSTIGMINE 1 MG/ML 10 ML VIAL ONE (07:44)
[2020-05-23] MEDS ORDERED: KETAMINE 10 MG/ML 20 ML VIAL ONE (07:44)
[2020-05-23] MEDS ORDERED: ROCURONIUM BROMIDE 10 MG/ML 5 ML VIAL IV ONE (07:44)
[2020-05-23] MEDS ORDERED: BUPIVACAINE (PF) 0.25% 30 ML VIAL MISCELLANE ONE ×2 (08:06)
[2020-05-23] MEDS ORDERED: LACTATED RINGERS 1,000 ML IV ONE (09:21)
--- NOTE | 2020-05-23 09:38 | P.GSHP ---
History of Present Illness H&P Date: 05/23/20 Chief Complaint: Incisional hernia Is a 35-year-old male who has developed an incisional hernia after reversal of colostomy. Patient presents today for laparoscopic robotic-assisted repair. Patient's hernia at his colostomy site and along the midline incision Past Medical History Past Medical History: Hyperlipidemia, Hypertension, Sleep Apnea/CPAP/BIPAP Additional Past Medical History / Comment(s): hx kidney stones, left kidney is undersized, no CPAP used, diverticulitis with rupture History of Any Multi-Drug Resistant Organisms: None Reported Past Surgical History: Bowel Resection, Orthopedic Surgery Additional Past Surgical History / Comment(s): bilat knee athroscopy (ACL reconstruction x2), nasal surgery, bowel resection with colostomy 09/29/19 colostomy reversal 03/25 Past Anesthesia/Blood Transfusion Reactions: Motion Sickness, Postoperative Nausea & Vomiting (PONV) Past Psychological History: No Psychological Hx Reported Smoking Status: Former smoker Past Alcohol Use History: Rare Additional Past Alcohol Use History / Comment(s): quit smoking 09/29/19, smoked for 15 yrs, 1 PPD Past Drug Use History: None Reported - Past Family History Mother Family Medical History: No Reported History Medications and Allergies Home Medications Medication Instructions Recorded Confirmed Type Celecoxib [CeleBREX] 200 mg PO DAILY 09/28/19 05/17/20 History Multivitamins, Thera [Multivitamin 1 tab PO DAILY 09/28/19 05/17/20 History (formulary)] Atorvastatin [Lipitor] 20 mg PO DAILY 03/03/20 05/17/20 History Psyllium Husk 100% [Metamucil 6 gm PO DAILY 03/03/20 05/17/20 History Packet] armodafiniL [Nuvigil] 200 mg PO QAM 03/03/20 05/17/20 History amLODIPine [Norvasc] 10 mg PO DAILY 30 Days #30 tab 03/13/20 05/17/20 Rx lisinopriL [Zestril] 20 mg PO DAILY 30 Days #30 tab 03/13/20 05/17/20 Rx Chlorthalidone [Hygroton] 12.5 mg PO DAILY 05/17/20 05/17/20 History Allergies Allergy/AdvReac Type Severity Reaction Status Date / Time No Known Allergies Allergy Verified 05/17/20 09:25 Surgical - Exam Vital Signs Temp Pulse Resp BP Pulse Ox 98.2 F 72 20 132/76 97 05/23/20 06:15 05/23/20 06:15 05/23/20 06:15 05/23/20 06:15 05/23/20 06:15 - General well developed, well nourished, no distress - Eyes PERRL - ENT normal pinna - Neck no masses, no bruits - Respiratory normal expansion - Cardiovascular Rhythm: regular - Abdomen Abdomen: soft, non tender Hernia: incisional (Incisional hernia located at the superior portion midline incision scar and at stoma site) Assessment and Plan Assessment: Incisional hernia we'll perform laparoscopic robotic-assisted repair.
--- NOTE | 2020-05-23 09:42 | P.OP ---
Date of Procedure: 05/23/20 Preoperative Diagnosis: Incisional hernia Postoperative Diagnosis: Incarcerated incisional hernia Procedure(s) Performed: Laparoscopic lysis of adhesions Laparoscopic robotic repair of incarcerated incisional hernia Anesthesia: EDWIN Surgeon: Ari Jamil Estimated Blood Loss (ml): 5 Pathology: none sent Condition: stable Disposition: PACU Description of Procedure: The patient was placed on the operating table in the supine position. He received general anesthesia. His abdomen was prepped and draped usual fashion. Using a 5 mm optical trocar under direct visualization the peritoneal cavity was entered in the left upper quadrant. The abdomen was then insufflated. The laparoscope was placed back into the perineal cavity. Next a 8 mm robotic trocar was placed in the left lower quadrant and a 12 mm robotic trocar was placed in the left lateral position. The original 5 mm trocar was exchanged for a 8 mm robotic trocar. The patient's placed in the left side up position. And the patient was docked to the robot. The incisional hernia was visualized. The adhesions to the hernia were lysed using hook cautery. The incarcerated omentum was reduced Using hook cautery the peritoneum over the incisional hernia was excised. The fascial opening was repa ired using 0V LOC suture. Next a piece of 11 cm round ventral light ST mesh was placed into the. Cavity and secured with 2 OV lock suture. The patient was undocked the robot. The needles were retrieved. The fascia of the 12 mm trocar site was closed with 0 Ethibond suture. Skin was closed interrupted 3-0 Monocryl suture. Dermabond dressings was applied. Patient tolerated procedure well and was sent to recovery room stable condition.
[2020-05-23 09:50] VITALS: TEMP 98
[2020-05-23] MEDS: HYDROmorphone 0.5 MG/0.5 ML SYRINGE IVP PRN ×6 (10:34→11:07)
[2020-05-23] MEDS ORDERED: HYDROcodone/APAP 5-325MG 1 EACH TAB ONE (12:02)
[2020-05-23] MEDS ORDERED: HYDROcodone/APAP 5-325MG 1 EACH TAB PO ONE (12:03)
[2020-05-23 13:22] VITALS: BP 121/82; PULSE 98; RESP 18
== END 2020-05-23 13:30 | disposition home or self-care (01) ==
LOC: OR 05:48
PROVIDERS: ATTEND Surgery
DX: K43.0 Incisional hernia with obstruction, without gangrene (principal); K66.0 Peritoneal adhesions (postprocedural) (postinfection); E78.5 Hyperlipidemia, unspecified; I10 Essential (primary) hypertension; G47.33 Obstructive sleep apnea (adult) (pediatric); N28.89 Other specified disorders of kidney and ureter; Z87.442 Personal history of urinary calculi; Z87.19 Personal history of other diseases of the digestive system; Z90.49 Acquired absence of other specified parts of digestive tract; Z98.890 Other specified postprocedural states; Z87.39 Personal history of other diseases of the musculoskeletal system and connective tissue; Z87.898 Personal history of other specified conditions; Z91.89 Other specified personal risk factors, not elsewhere classified; Z87.891 Personal history of nicotine dependence; Z79.1 Long term (current) use of non-steroidal anti-inflammatories (NSAID); Z79.899 Other long term (current) drug therapy
CPT/HCPCS: 49655; S2900

== ENCOUNTER 2021-09-02 23:47 | Emergency (ER) | payer OTHER ==
[2021-09-03 00:40] VITALS: TEMP 98.4
[2021-09-03] MEDS ORDERED: diphenhydrAMINE 50 MG/ML 1 ML VIAL IVP STA (00:40)
[2021-09-03] MEDS ORDERED: FAMOTIDINE 20 MG/2 ML VIAL IV STA (00:40)
[2021-09-03] MEDS ORDERED: methylPREDNISolone SOD SUCCI 125 MG/2 ML VIAL IV STA (00:40)
--- NOTE | 2021-09-03 01:47 | ED ---
General Adult HPI - General Chief complaint: Allergic Reaction Stated complaint: Allergic Reaction Time Seen by Provider: 09/03/21 00:41 Source: patient Mode of arrival: ambulatory Limitations: no limitations - History of Present Illness Initial comments: 36-year-old male patient presents to the emergency department today for evaluation of lower lip swelling. States he started having some mild swelling prior to going to bed. States he woke up and his lower lip was much more swollen. States it felt weird. Denies any tongue or throat swelling. Denies any shortness of breath. Denies any new exposures. He does take lisinopril and lotrel (amlodipine/benazapril) for years. Denies any history of similar symptoms. Denies any abdominal pain. Denies nausea or vomiting. Denies any rash or itching. - Related Data Home Medications Medication Instructions Recorded Confirmed Celecoxib [CeleBREX] 200 mg PO DAILY 09/28/19 05/17/20 Multivitamins, Thera [Multivitamin 1 tab PO DAILY 09/28/19 05/17/20 (formulary)] Atorvastatin [Lipitor] 20 mg PO DAILY 03/03/20 05/17/20 Psyllium Husk 100% [Metamucil 6 gm PO DAILY 03/03/20 05/17/20 Packet] armodafiniL [Nuvigil] 200 mg PO QAM 03/03/20 05/17/20 Chlorthalidone [Hygroton] 12.5 mg PO DAILY 05/17/20 05/17/20 Previous Rx's Medication Instructions Recorded amLODIPine [Norvasc] 10 mg PO DAILY 30 Days #30 tab 03/13/20 lisinopriL [Zestril] 20 mg PO DAILY 30 Days #30 tab 03/13/20 Docusate [Colace] 100 mg PO BID #20 capsule 05/23/20 HYDROcodone/APAP 5-325MG [Edgar 1 tab PO Q6HR PRN #10 tab 05/23/20 5-325] predniSONE 50 mg PO DAILY #3 tab 09/03/21 Allergies Allergy/AdvReac Type Severity Reaction Status Date / Time No Known Allergies Allergy Verified 09/03/21 00:39 Review of Systems ROS Statement: Those systems with pertinent positive or pertinent negative responses have been documented in the HPI. ROS Other: All systems not noted in ROS Statement are negative. Past Medical History Past Medical History: Hyperlipidemia, Hypertension, Sleep Apnea/CPAP/BIPAP Additional Past Medical History / Comment(s): hx kidney stones, left kidney is undersized, no CPAP used, diverticulitis with rupture History of Any Multi-Drug Resistant Organisms: None Reported Past Surgical History: Bowel Resection, Orthopedic Surgery Additional Past Surgical History / Comment(s): bilat knee athroscopy (ACL reconstruction x2), nasal surgery, bowel resection with colostomy 09/29/19 colostomy reversal 03/25 Past Anesthesia/Blood Transfusion Reactions: Motion Sickness, Postoperative Nausea & Vomiting (PONV) Past Psychological History: No Psychological Hx Reported Smoking Status: Former smoker Past Alcohol Use History: Rare Past Drug Use History: None Reported - Past Family History Mother Family Medical History: No Reported History General Exam Limitations: no limitations General appearance: alert, in no apparent distress, other (This is a well- developed, well-nourished adult male in no acute distress.) ENT exam: Present: mucous membranes moist, other (There is lower lip edema worse on the left noted on exam. No tongue swelling, no pharyngeal swelling.). Absent: normal oropharynx Respiratory exam: Present: normal lung sounds bilaterally. Absent: respiratory distress, wheezes, rales, rhonchi, stridor Cardiovascular Exam: Present: regular rate, normal rhythm, normal heart sounds. Absent: systolic murmur, diastolic murmur, rubs, gallop, clicks GI/Abdominal exam: Present: soft, normal bowel sounds. Absent: distended, tenderness, guarding, rebound, rigid Neurological exam: Present: alert, oriented X3, CN II-XII intact Psychiatric exam: Present: normal affect, normal mood Skin exam: Present: warm, dry, intact, normal color. Absent: rash Course Vital Signs 09/03/21 09/03/21 00:36 01:53 Temperature 98.4 F Pulse Rate 110 H 102 H Respiratory 20 18 Rate Blood Pressure 145/100 131/84 O2 Sat by Pulse 99 97 Oximetry Medical Decision Making - Medical Decision Making 36-year-old male patient presents to the emergency department today for evaluation of lower lip swelling. He was given IV Solu-Medrol, Pepcid, Aditya adryl. Did have improvement symptoms. Patient had no new exposures it was determined that this is most likely angioedema due to LARRY inhibitor use. He is instructed to discontinue use of these medications. He is instructed to call his doctor first thing in the morning for further instructions and new prescriptions. He is given a three-day course of prednisone. Return parameters were discussed in detail. He verbalizes understanding and agrees with this plan. My attending is Dr. Sherwood. Disposition Clinical Impression: Angioedema Disposition: HOME SELF-CARE Condition: Good Instructions (If sedation given, give patient instructions): Angioedema (ED) Additional Instructions: Take steroid prescription as directed. Follow up with primary care physician as soon as possible for further evaluation and instruction regarding her blood pressure medication. Do not take your lisinopril, inform everyone that you are ALLERGIC to Larry inhibitors. Return for any new, worsening, or concerning symptoms. Prescriptions: predniSONE 50 mg PO DAILY #3 tab Is patient prescribed a controlled substance at d/c from ED?: No Referrals: Erica Nazario MD [Primary Care Provider] - 1-2 days Time of Disposition: 01:47
[2021-09-03 01:54] VITALS: BP 131/84; PULSE 102; RESP 18
== END 2021-09-03 01:57 | disposition home or self-care (01) ==
LOC: EC 23:47
DX: T78.3XXA Angioneurotic edema, initial encounter (principal); I10 Essential (primary) hypertension; E78.5 Hyperlipidemia, unspecified; Z87.891 Personal history of nicotine dependence; Z79.52 Long term (current) use of systemic steroids; Z79.899 Other long term (current) drug therapy
CPT/HCPCS: 99283; 96374; 96375 ×2; J1200; J2930

== ENCOUNTER → 2022-04-20 | Outpatient (CLI) | payer BC ==
[2022-04-20 11:51] LABS: ALT 60 U/L (10-49); AST 24 U/L (14-35); African American GFR (CKD) 98.2 (60.0-200.0); Albumin 4.3 g/dL (3.8-4.9); Albumin/Globulin Ratio 1.65 (1.60-3.17); Alkaline Phosphatase 129 U/L (41-126); BUN/Creat Ratio 14.45 Ratio (12.00-20.00); Blood Urea Nitrogen 15.9 mg/dL (9.0-27.0); Calcium 9.4 mg/dL (8.7-10.3); Carbon Dioxide 24.4 mmol/L (20.0-27.5); Chloride 105 mmol/L (96-109); Chol/HDL Ratio 5.42 Ratio; Globulin 2.6 g/dL (1.6-3.3); Glucose 128 mg/dL (70-110); LDL Cholesterol,Calculated 90.1 mg/dL (0.0-131.0); Non-African American GFR(CKD) 84.7 (60.0-200.0); Potassium 4.2 mmol/L (3.5-5.5); Sodium 141 mmol/L (135-145); Total Bilirubin <0.15 mg/dL (0.30-1.20); Total Protein 6.9 g/dL (6.2-8.2)
[2022-04-20 12:07] LABS: Basophils # (A) 0.03 X 10*3/uL (0.00-0.10); Basophils % (A) 0.3 %; Eosinophils # (A) 0.14 X 10*3/uL (0.04-0.35); Eosinophils % (A) 1.6 %; HCT 46.1 % (39.6-50.0); HGB 14.8 g/dL (13.0-17.0); Immature Grans, Automated 0.5 %; Lymphocytes # (A) 2.45 X 10*3/uL (0.90-5.00); Lymphocytes % (A) 27.7 %; MCH 27.9 pg (27.0-32.0); MCHC 32.1 g/dL (32.0-37.0); Mean Platelet Volume 10.4 fL (9.5-12.2); Monocytes # (A) 0.55 X 10*3/uL (0.20-1.00); Monocytes % (A) 6.2 %; NRBC Per 100 WBC 0 /100 WBCS (0.0-0.0); Neutrophils # (A) 5.64 X 10*3/uL (1.80-7.70); Neutrophils % (A) 63.7 %; Platelet Count 243 X 10*3/uL (140-440); RDW 13.6 % (11.5-14.5); WBC 8.85 X 10*3/uL (4.50-10.00)
== END | disposition home or self-care (01) ==
LOC: LABWHC1 08:41
PROVIDERS: ATTEND Family Medicine
DX: I10 Essential (primary) hypertension (principal)
CPT/HCPCS: 36415; 80053; 80061; 84443; 85025

== ENCOUNTER → 2022-05-13 | Outpatient (CLI) | payer BC ==
--- NOTE | 2022-05-13 08:20 | US ---
EXAMINATION TYPE: US venous doppler duplex LE BI DATE OF EXAM: 05/13/2022 8:10 AM COMPARISON: NONE CLINICAL HISTORY: R60.0 Localized edema. both legs swell during the day and go down at night after ke eping legs propped up SIDE PERFORMED: bilateral TECHNIQUE: The lower extremity deep venous system is examined utilizing real time linear array sonog angie with graded compression, doppler sonography and color-flow sonography. VESSELS IMAGED: Common Femoral Vein Deep Femoral Vein Greater Saphenous Vein * Femoral Vein Popliteal Vein Small Saphenous Vein * Proximal Calf Veins (* superficial vessels) Right Leg: negative for RLE dvt Left Leg: negative for LLE dvt IMPRESSION: 1. Bilateral lower extremity ultrasound negative for deep venous thrombosis.
== END | disposition home or self-care (01) ==
LOC: RADUSWWP 07:34
PROVIDERS: ATTEND Family Medicine
DX: R60.0 Localized edema (principal)
CPT/HCPCS: 93970

== ENCOUNTER → 2023-10-02 | Outpatient (CLI) | payer BC ==
[2023-10-02 15:09] LABS: Basophils # (A) 0.02 X 10*3/uL (0.00-0.10); Basophils % (A) 0.2 %; Eosinophils # (A) 0.09 X 10*3/uL (0.04-0.35); HCT 46.8 % (39.6-50.0); HGB 15.4 g/dL (13.0-17.0); Lymphocytes # (A) 1.76 X 10*3/uL (0.90-5.00); Lymphocytes % (A) 19.2 %; MCH 28.3 pg (27.0-32.0); MCHC 32.9 g/dL (32.0-37.0); Mean Platelet Volume 10.4 FL (9.5-12.2); Monocytes # (A) 0.48 X 10*3/uL (0.20-1.00); Monocytes % (A) 5.2 %; NRBC Per 100 WBC 0 X 10*3/uL (0.00-0.01); Neutrophils # (A) 6.76 X 10*3/uL (1.80-7.70); Platelet Count 232 X 10*3/uL (140-440); RBC 5.44 X 10*6/uL (4.40-5.60); RDW 13.6 % (11.5-14.5); WBC 9.15 X 10*3/uL (4.50-10.00)
[2023-10-02 15:23] LABS: BUN/Creat Ratio 15.27 Ratio (12.00-20.00); Blood Urea Nitrogen 16.8 mg/dL (9.0-27.0); Chol/HDL Ratio 5.93 Ratio; Glucose 100 mg/dL (70-110); LDL Cholesterol,Calculated 112.4 mg/dL (0.0-131.0)
[2023-10-02 15:24] LABS: ALT 57 U/L (10-49); AST 28 U/L (14-35); Albumin 4.4 g/dL (3.8-4.9); Albumin/Globulin Ratio 1.69 Ratio (1.60-3.17); Alkaline Phosphatase 114 U/L (41-126); Calcium 9.8 mg/dL (8.7-10.3); Carbon Dioxide 26.6 mmol/L (21.6-31.8); Chloride 102 mmol/L (96-109); Globulin 2.6 g/dL (1.6-3.3); Potassium 4.8 mmol/L (3.5-5.5); Sodium 140 mmol/L (135-145); Total Bilirubin 0.4 mg/dL (0.3-1.2)
== END | disposition home or self-care (01) ==
LOC: LABWHC1 11:10
PROVIDERS: ATTEND Family Medicine
DX: Z00.00 Encounter for general adult medical examination without abnormal findings (principal)
CPT/HCPCS: 36415; 80053; 80061; 84443; 85025

== ENCOUNTER → 2024-05-13 | Outpatient (CLI) | payer BC | END | disposition home or self-care (01) | LOC: LABPRL 10:10 | PROVIDERS: ATTEND Family Medicine | DX: Z00.00 Encounter for general adult medical examination without abnormal findings | CPT/HCPCS: 80053; 80061; 84443; 85025 ==

== ENCOUNTER 2025-03-24 07:30 | Day surgery (SDC) | payer BC ==
--- NOTE | 2025-03-24 06:43 | P.GSHP ---
History of Present Illness H&P Date: 03/24/25 Chief Complaint: Right renal colic The patient is a 40-year-old white male with a history of urolithiasis. He has passed his kidney stones in the past. Beginning on March 04, he experienced sharp right flank pain radiating to the abdomen, with associated nausea and vomiting. He presented to the ER overnight and underwent a CT scan, revealing right hydronephrosis due to a 4 mm right proximal ureteral calculus. There was evidence of delayed uptake and excretion by the right kidney, consistent with obstruction. A 6 mm left upper pole renal calculus was also seen. He was admitted with intractable symptoms and renal insufficiency and underwent right ureteral stent insertion. - Cardiovascular Cardiovascular: Reports high blood pressure - Genitourinary (Male) Genitourinary: Reports flank pain, Reports kidney stones Past Medical History Past Medical History: Hyperlipidemia, Hypertension, Sleep Apnea/CPAP/BIPAP Additional Past Medical History / Comment(s): hx kidney stones, left kidney is undersized, no CPAP used, diverticulitis with rupture History of Any Multi-Drug Resistant Organisms: None Reported Past Surgical History: Bowel Resection, Orthopedic Surgery Additional Past Surgical History / Comment(s): bilat knee athroscopy (ACL reconstruction x2), nasal surgery, bowel resection with colostomy 09/29/19 colostomy reversal 03/25 Past Anesthesia/Blood Transfusion Reactions: Motion Sickness, Postoperative Nausea & Vomiting (PONV) Smoking Status: Former smoker - Past Family History Mother Family Medical History: No Reported History Medications and Allergies Home Medications Medication Instructions Recorded Confirmed Type Celecoxib [CeleBREX] 200 mg PO DAILY 09/28/19 03/21/25 History Atorvastatin Calcium [Lipitor] 40 mg PO DAILY 03/06/25 03/21/25 History Furosemide [Lasix] 20 mg PO DAILY 03/06/25 03/21/25 History Metoprolol Succinate [Metoprolol 25 mg PO DAILY 03/06/25 03/21/25 History Succinate ER] Sertraline [Zoloft] 50 mg PO DAILY 03/06/25 03/21/25 History Verapamil HCl [Verapamil ER] 240 mg PO DAILY 03/06/25 03/21/25 History Acetaminophen Tab [Tylenol] 650 mg PO Q6HR PRN tab 03/07/25 03/21/25 Rx Allergies Allergy/AdvReac Type Severity Reaction Status Date / Time BETSEY Inhibitors Allergy Anaphylaxis, Verified 03/21/25 15:52 swelling Surgical - Exam - General well developed, well nourished, no distress - Respiratory normal respiratory effort - Abdomen Abdomen: soft, non tender, no guarding, no rigid, no rebound - Genitourinary normal penis with no external lesions, testicles non-tender - Psychiatric oriented to time, oriented to person, oriented to place, speech is normal, memory intact Results - Imaging CT scan - abdomen: report reviewed, image reviewed Assessment and Plan (1) Ureterolithiasis Status: Acute Code(s): N20.1 - CALCULUS OF URETER SNOMED Code(s): 33924880 Plan: Cystoscopy, right ureteral stent removal, right ureteroscopy with Holmium laser lithotripsy and possible stone basketing. The procedure has been reviewed in detail with the patient. He is aware of potential risks, which include anesthesia, bleeding, infection, ureteral injury, and inability to remove the calculus.
[~2025-03-24 07:30] MED LIST changes: -ACETAMINOPHEN TAB 500 MG TAB PO ONE; -DEXAMETHASONE SOD PHOSPHATE 10 MG/ML 1 ML VIAL IV ONE; +HYDROmorphone 0.5 MG/0.5 ML SYRINGE IVP PRN; -LACTATED RINGERS 1,000 ML IV SCH; -MIDAZOLAM 2 MG/2 ML VIAL IV PRN; -ONDANSETRON 4 MG/2 ML VIAL IVP ONE; +droPERidol 2.5 MG/ML VIAL IVP ONE
--- NOTE | 2025-03-24 07:46 | XR ---
EXAMINATION TYPE: XR KUB DATE OF EXAM: 03/24/2025 7:40 AM COMPARISON: 01/25/2020 CLINICAL INDICATION: Male, 40 years old with history of N20.1 right ureteral calculus, TECHNIQUE: XR KUB view(s) obtained. FINDINGS: There is a normal bowel gas pattern. Psoas margins are normal. No organomegaly is present. Right ureteral stent is present. A left 0.6 cm calcification is present. IMPRESSION: 1. Left 0.6 cm calcification. 2. Right ureteral stent [facility], , 03/24/2025 7:43 AM
[2025-03-24] MEDS: IV FLUID CONTINUATION 1,000 ML IV ONE (08:03)
[2025-03-24] MEDS: ONDANSETRON 4 MG/2 ML VIAL IVP ONE (08:26)
[2025-03-24] MEDS: DEXAMETHASONE SOD PHOSPHATE 4 MG/ML 1 ML VIAL IV ONE (08:26)
[2025-03-24] MEDS: LACTATED RINGERS 1,000 ML IV SCH (08:26)
[2025-03-24] MEDS ORDERED: PROPOFOL 10 MG/ML 20 ML VIAL IV ONE (09:01)
[2025-03-24] MEDS ORDERED: NEOSTIGMINE 1 MG/ML 10 ML VIAL ONE (09:01)
[2025-03-24] MEDS ORDERED: ROCURONIUM 10 MG/ML (5 ML VIAL) IV ONE (09:01)
[2025-03-24] MEDS ORDERED: fentaNYL (PF) 50 MCG/ML 2 ML AMP ONE (09:01)
[2025-03-24] MEDS ORDERED: MIDAZOLAM 2 MG/2 ML VIAL ONE (09:01)
[2025-03-24] MEDS ORDERED: GLYCOPYRROLATE 0.2 MG/ML 2 ML VIAL ONE (09:01)
[2025-03-24] MEDS ORDERED: SUCCINYLCHOLINE CHLORIDE 200 MG/10 ML VIAL IV ONE (09:01)
[2025-03-24] MEDS ORDERED: LIDOCAINE 1% INJ 10MG/ML (20 ML MDV) ONE (09:01)
[2025-03-24] MEDS: ceFAZolin 3 GM in SODIUM CHLORIDE 0.9% 100 ML IVPB PRN (09:04)
[2025-03-24 09:55] VITALS: TEMP 97
--- NOTE | 2025-03-24 10:00 | P.OP ---
Date of Procedure: 03/24/25 Preoperative Diagnosis: Right ureteral calculus Postoperative Diagnosis: Same Procedure(s) Performed: Cystoscopy, right ureteral stent removal, right ureteroscopy with Holmium laser lithotripsy Anesthesia: EDWIN Surgeon: Juan R Guevara Estimated Blood Loss (ml): 0 IV fluids (ml): 700 Pathology: other (Right ureteral calculus, sent for chemical analysis) Condition: stable Disposition: PACU Indications for Procedure: The patient is a 40-year-old white male with a history of urolithiasis. He has passed his kidney stones in the past. Beginning on March 04, he experienced sharp right flank pain radiating to the abdomen, with associated nausea and vomiting. He presented to the ER overnight and underwent a CT scan, revealing right hydronephrosis due to a 4 mm right proximal ureteral calculus. There was evidence of delayed uptake and excretion by the right kidney, consistent with obstruction. A 6 mm left upper pole renal calculus was also seen. He was admitted with intractable symptoms and renal insufficiency and underwent right ureteral stent insertion. He now comes for ureteroscopic removal of the right ureteral calculus. He declines removal of the left renal calculus. Operative Findings: Right distal ureteral calculus, fragmented and removed successfully. Description of Procedure: The patient was taken to the operating room and placed in the dorsolithotomy position, with legs supported in Cali stirrups. The external genitalia was prepped and draped sterilely. The 30 lens was used to introduce the 21 [place]ic Payton cystoscopic sheath through the urethra and into the bladder under direct vision. The prostatic urethra showed evidence of mild lateral lobe enlargement. The bladder was examined in its entirety. No abnormalities were seen. Grasping forceps were used to grasp the distal end of the right ureteral stent, which was removed along with the cystoscope. A 0.038 inch Glidewire was passed through the stent and advanced up to the renal pelvis. The stent was removed, and an 11/13-Icelandic ureteral access catheter was passed over the wire, into the distal ureter distal to the calculus. The Expandlya flexible ureteroscope was then passed through the ureteral access catheter sheath, up to the stone. The 272 micron Holmium laser probe was passed through the ureteroscope, and lithotripsy was performed. As the calculus fragmented, fragments passed distally into the bladder. Once this was completed, the ureter was inspected. There was no evidence of ureteral trauma, and no residual calculus fragments within the ureter. The ureteroscope was removed, and the c ystoscope was replaced into the bladder to drain the bladder and remove the calculus fragments, which were sent for chemical analysis. The patient tolerated the procedure well and was taken to the recovery room in stable condition. JULIANE DEEP RUNYe Report: Procedure Acuity: Elective Stone Size and Location: 4 mm, right distal ureter Ureteral Dilation: No Ureteral Access Sheath Used: Yes Stone Sent for Analysis: Yes All Stones/Fragments Were Removed: Yes Complications: No Preoperative Antibiotics Given: Yes Stent Placed: No Discharge Medications: None
--- NOTE | 2025-03-24 10:23 | FL ---
EXAMINATION TYPE: FL guidance operating room DATE OF EXAM: 03/24/2025 9:45 AM COMPARISON: Pre Operative Images if available both CT/MRI or plain film CLINICAL INDICATION: Male, 40 years old with history of CYSTO LITHO RIGHT URETERAL CALCULUS; TECHNIQUE: FL guidance operating room, multiple fluoroscopic images provided for procedure. DAP: 1.7122 mGym2 Gycm2 uGym2 cGycm2 or equivalent. FINDINGS: Multiple intraoperative fluoroscopic images were taken during lithotripsy. No immediate intraoperativ e complication. Multilevel degeneration changes throughout the spine. IMPRESSION: 1. No evidence for intraoperative complication. 2. Please see the operative/procedural note for further details. [facility], , 03/24/2025 10:20 AM
[2025-03-24 10:47] VITALS: BP 131/86; PULSE 75; RESP 17
== END 2025-03-24 11:05 | disposition home or self-care (01) ==
LOC: OR 07:30
PROVIDERS: ATTEND Urology
DX: N13.2 Hydronephrosis with renal and ureteral calculous obstruction (principal); Z87.442 Personal history of urinary calculi; Z96.0 Presence of urogenital implants; I10 Essential (primary) hypertension; E78.5 Hyperlipidemia, unspecified; G47.33 Obstructive sleep apnea (adult) (pediatric); F41.9 Anxiety disorder, unspecified; E66.01 Morbid (severe) obesity due to excess calories; Z79.1 Long term (current) use of non-steroidal anti-inflammatories (NSAID); Z79.899 Other long term (current) drug therapy; Z87.891 Personal history of nicotine dependence; Z88.8 Allergy status to other drugs, medicaments and biological substances
CPT/HCPCS: 82365; 74018; 52353; C1769; J2250; J0330; J1100; J2710; J0690; J2405; J2003; J3010; J2704; J1596